=== PATIENT | male | born 1995 | race Caucasian/White ===

== ENCOUNTER 2018-03-29 10:36 | Emergency (ER) | payer OTHER ==
--- OUTSIDE RECORDS SUMMARY | 2018-03-29 10:38 | XMS REPORT ---
:1995 Author Organization [facility] Address [address] [place] [address] Care Team Providers Name Role Phone MARILUEMMY MONGE Unavailable Unavailable Problems This patient has no known problems. Allergies, Adverse Reactions, Alerts This patient has no known allergies or adverse reactions. Medications This patient has no known medications. Results Test Description Test Time Test Comments Text Results Atomic Results Result Comments T4, FREE 2017-12-10 11:47:00 Test Item Value Reference Range Comments FREE T4 (BEAKER) (test jlvj=742) 1.09 ng/dL 0.70-1.48 HEMOGLOBIN [id number] 10:04:00 Test Item Value Reference Range Comments HEMOGLOBIN A1C (BEAKER) (test zvqw=355) 6.2 % 4.3-6.1 CALCIUM, [id number] 07:52:00 Test Item Value Reference Range Comments CALCIUM IONIZED (BEAKER) (test vrne=972) 1.00 mmol/L 1.12-1.27 PH, BLOOD (BEAKER) (test pbih=7934) 7.35 [id number] 06:09:00 Test Item Value Reference Range Comments PHOSPHORUS (BEAKER) (test hjie=803) 3.4 mg/dL 2.3-4.7 [id number] 06:09:00 Test Item Value Reference Range Comments MAGNESIUM (BEAKER) (test kduu=524) 1.7 mg/dL 1.6-2.6 BASIC METABOLIC [id number] 06:09:00 Test Item Value Reference Range Comments SODIUM (BEAKER) (test 139 meq/L 136-145 urmy=703) POTASSIUM (BEAKER) (test 3.6 meq/L 3.5-5.1 tacj=130) CHLORIDE (BEAKER) (test 106 meq/L 98-107 yjqm=795) CO2 (BEAKER) (test 24 meq/L 22-29 buqw=460) BLOOD UREA NITROGEN 11 mg/dL 7-21 (BEAKER) (test hlus=031) CREATININE (BEAKER) (test 0.78 mg/dL 0.57-1.25 aryp=835) GLUCOSE RANDOM (BEAKER) 86 mg/dL 70-105 (test vliu=401) CALCIUM (BEAKER) (test 8.9 mg/dL 8.4-10.2 txci=773) EGFR (BEAKER) (test 127 mL/min/1.73 sq m ESTIMATED GFR IS NOT uzfp=5360) ACCURATE CREATININE CLEARANCE IN PREDICTING GLOMERULAR FILTRATION RATE. ESTIMATED GFR IS NOT APPLICABLE FOR DIALYSIS PATIENTS. LIPID [id number] 06:09:00 Test Item Value Reference Range Comments TRIGLYCERIDES (BEAKER) (test tebs=082) 89 mg/dL CHOLESTEROL (BEAKER) (test rgsw=786) 132 mg/dL HDL CHOLESTEROL (BEAKER) (test njcp=396) 36 mg/dL LDL CHOLESTEROL CALCULATED (BEAKER) (test 78 mg/dL gevk=785) Triglyceride Reference Range: Low Risk <150 Borderline 150- 199 High Risk 200-499 Very High Risk >=500Cholesterol Reference Range: Low Risk <200 Borderline 200-239 High Risk > 240HDL Cholesterol Reference Range: Low Risk >=60 High Risk <40LDL Cholesterol Reference Range: Optimal <100 Near Optimal 100-129 Borderline 130-159 High 160-189 Very High >=190TSH/FREE T4 IF [id number] 05:58:00 Test Item Value Reference Range Comments THYROID STIMULATING HORMONE (BEAKER) (test 10.61 uIU/mL 0.35-4.94 seor=962) [id number] 05:44:00 Test Item Value Reference Range Comments D-DIMER QUANTITATIVE (BEAKER) (test pwzf=263) < MG/L FEU <0.50 Intended Use: The D-Dimer Assay can be used to aid in the diagnosis of Deep Vein Thrombosis (DVT) and Pulmonary Embolism Disease (PED).In patients with low pre-test probability, various studies concerning STA Liatest D-dimer test have reported that with a cutoff value of 0.50 MG/L FEU, the Negative Predictive Value (NPV) regarding the exclusion of thrombosis is within 95-100% range.CBC W/ PLT COUNT & AUTO [id number] 04:54:00 Test Item Value Reference Range Comments WHITE BLOOD CELL COUNT (BEAKER) (test eupy=884) 8.5 K/ L 3.5-10.5 RED BLOOD CELL COUNT (BEAKER) (test kyrs=977) 5.30 M/ L 4.63-6.08 HEMOGLOBIN (BEAKER) (test vyxx=263) 16.2 GM/DL 13.7-17.5 HEMATOCRIT (BEAKER) (test wzfi=558) 49.2 % 40.1-51.0 MEAN CORPUSCULAR VOLUME (BEAKER) (test fdrr=079) 92.8 fL 79.0-92.2 MEAN CORPUSCULAR HEMOGLOBIN (BEAKER) (test 30.6 pg 25.7-32.2 shbc=076) MEAN CORPUSCULAR HEMOGLOBIN CONC (BEAKER) (test 32.9 GM/DL 32.3-36.5 krle=363) RED CELL DISTRIBUTION WIDTH (BEAKER) (test 13.2 % 11.6-14.4 mbin=114) PLATELET COUNT (BEAKER) (test jpzu=915) 205 K/CU MM 150-450 MEAN PLATELET VOLUME (BEAKER) (test ljqz=330) 13.1 fL 9.4-12.4 NUCLEATED RED BLOOD CELLS (BEAKER) (test 0 /100 WBC 0-0 rdrr=506) NEUTROPHILS RELATIVE PERCENT (BEAKER) (test 65 % pmnv=484) LYMPHOCYTES RELATIVE PERCENT (BEAKER) (test 27 % fxid=029) MONOCYTES RELATIVE PERCENT (BEAKER) (test 6 % nqki=505) EOSINOPHILS RELATIVE PERCENT (BEAKER) (test 2 % drbg=823) BASOPHILS RELATIVE PERCENT (BEAKER) (test 0 % hmhg=332) NEUTROPHILS ABSOLUTE COUNT (BEAKER) (test 5.52 K/ L 1.78-5.38 oghq=644) LYMPHOCYTES ABSOLUTE COUNT (BEAKER) (test 2.28 K/ L 1.32-3.57 xuax=513) MONOCYTES ABSOLUTE COUNT (BEAKER) (test 0.50 K/ L 0.30-0.82 syzc=493) EOSINOPHILS ABSOLUTE COUNT (BEAKER) (test 0.17 K/ L 0.04-0.54 etgw=472) BASOPHILS ABSOLUTE COUNT (BEAKER) (test 0.03 K/ L 0.01-0.08 muqj=972) IMMATURE GRANULOCYTES-RELATIVE PERCENT (BEAKER) 0 % 0-1 (test qhkf=0037) COMPREHENSIVE METABOLIC [id number] 18:11:00 Test Item Value Reference Range Comments TOTAL PROTEIN (BEAKER) 7.6 gm/dL 6.0-8.3 (test zvvp=513) ALBUMIN (BEAKER) (test 4.4 g/dL 3.5-5.0 iyyk=5828) ALKALINE PHOSPHATASE 110 U/L 40-150 (BEAKER) (test efop=962) BILIRUBIN TOTAL (BEAKER) 0.6 mg/dL 0.2-1.2 (test nxpl=114) SODIUM (BEAKER) (test 140 meq/L 136-145 ijdl=004) POTASSIUM (BEAKER) (test 4.5 meq/L 3.5-5.1 nkyq=664) CHLORIDE (BEAKER) (test 105 meq/L 98-107 xbtb=431) CO2 (BEAKER) (test 27 meq/L 22-29 aazc=722) BLOOD UREA NITROGEN 14 mg/dL 7-21 (BEAKER) (test fcme=697) CREATININE (BEAKER) (test 1.06 mg/dL 0.57-1.25 gytn=865) GLUCOSE RANDOM (BEAKER) 71 mg/dL 70-105 (test uctn=493) CALCIUM (BEAKER) (test 9.7 mg/dL 8.4-10.2 snqt=762) AST (SGOT) (BEAKER) (test 18 U/L 5-34 qhny=557) ALT (SGPT) (BEAKER) (test 17 U/L 6-55 tjrf=874) EGFR (BEAKER) (test 89 mL/min/1.73 sq m ESTIMATED GFR IS NOT ivww=5776) ACCURATE CREATININE CLEARANCE IN PREDICTING GLOMERULAR FILTRATION RATE. ESTIMATED GFR IS NOT APPLICABLE FOR DIALYSIS PATIENTS. [id number] 18:06:00 Test Item Value Reference Range Comments CORTISOL, TOTAL (BEAKER) (test jdzd=3195) 11.6 ug/dL 3.7-19.4 [id number] 17:48:00 Test Item Value Reference Range Comments PHOSPHORUS (BEAKER) (test ydfr=980) 2.8 mg/dL 2.3-4.7 [id number] 17:48:00 Test Item Value Reference Range Comments MAGNESIUM (BEAKER) (test yzbm=325) 2.1 mg/dL 1.6-2.6 CBC W/PLT COUNT & AUTO [id number] 17:10:00 Test Item Value Reference Range Comments WHITE BLOOD CELL COUNT (BEAKER) (test fofh=653) 9.0 K/ L 3.5-10.5 RED BLOOD CELL COUNT (BEAKER) (test kmru=690) 5.57 M/ L 4.63-6.08 HEMOGLOBIN (BEAKER) (test desf=799) 17.4 GM/DL 13.7-17.5 HEMATOCRIT (BEAKER) (test cvav=204) 53.2 % 40.1-51.0 MEAN CORPUSCULAR VOLUME (BEAKER) (test yhae=287) 95.5 fL 79.0-92.2 MEAN CORPUSCULAR HEMOGLOBIN (BEAKER) (test 31.2 pg 25.7-32.2 blvd=929) MEAN CORPUSCULAR HEMOGLOBIN CONC (BEAKER) (test 32.7 GM/DL 32.3-36.5 aqdf=194) RED CELL DISTRIBUTION WIDTH (BEAKER) (test 13.5 % 11.6-14.4 dver=253) PLATELET COUNT (BEAKER) (test qlwz=040) 220 K/CU MM 150-450 MEAN PLATELET VOLUME (BEAKER) (test axue=422) 13.0 fL 9.4-12.4 NUCLEATED RED BLOOD CELLS (BEAKER) (test 0 /100 WBC 0-0 aciq=224) NEUTROPHILS RELATIVE PERCENT (BEAKER) (test 76 % pnms=257) LYMPHOCYTES RELATIVE PERCENT (BEAKER) (test 16 % kwst=792) MONOCYTES RELATIVE PERCENT (BEAKER) (test 7 % mrki=049) EOSINOPHILS RELATIVE PERCENT (BEAKER) (test 1 % qtji=202) BASOPHILS RELATIVE PERCENT (BEAKER) (test 0 % zyhb=150) NEUTROPHILS ABSOLUTE COUNT (BEAKER) (test 6.81 K/ L 1.78-5.38 sucu=792) LYMPHOCYTES ABSOLUTE COUNT (BEAKER) (test 1.47 K/ L 1.32-3.57 vwde=780) MONOCYTES ABSOLUTE COUNT (BEAKER) (test 0.59 K/ L 0.30-0.82 muec=128) EOSINOPHILS ABSOLUTE COUNT (BEAKER) (test 0.10 K/ L 0.04-0.54 pbdl=824) BASOPHILS ABSOLUTE COUNT (BEAKER) (test 0.03 K/ L 0.01-0.08 bvhr=571) IMMATURE GRANULOCYTES-RELATIVE PERCENT (BEAKER) 0 % 0-1 (test oauu=1031)
--- OUTSIDE RECORDS SUMMARY | 2018-03-29 10:38 | XMS REPORT | Clinical Summary ---
:1995 Author Organization [facility] Address [address] [place] [address] Phone Care Team Providers Name Role Phone Unavailable Primary Care Provider Unavailable Allergies Active Allergy Reactions Severity Noted Date Comments Ibuprofen Swelling High 12/09/2017 Throat swells Current Medications Prescription Sig. Disp. Refills Start Date End Date Status metoprolol Take 0.5 60 tablet 2 10/12/2017 Active (LOPRESSOR) 25 MG tablets (12.5 tablet mg total) by mouth 2 (two) times daily. aspirin 81 MG EC Take 1 tablet 30 tablet 0 12/11/2017 12/11/2018 Active tablet (81 mg total) by mouth daily. pantoprazole Take 1 tablet 30 tablet 0 12/10/2017 Active (PROTONIX) 40 MG (40 mg total) tablet by mouth daily. traMADol (ULTRAM) Take 1 tablet 60 tablet 2 12/22/2017 Active 50 mg tablet (50 mg total) by mouth 2 (two) times daily as needed for Pain. Max Daily Amount: 100 mg zolpidem (AMBIEN) Take 10 mg by Active 10 mg tablet mouth every night as needed for Insomnia. aspirin 81 MG EC Take 81 mg by 12/09/2017 Discontinued tablet mouth daily. metoprolol Take 12.5 mg 06/14/2017 10/12/2017 Discontinued (LOPRESSOR) 25 MG by mouth 2 tablet (two) times daily . traMADol (ULTRAM) Take 50 mg by 12/22/2017 Discontinued 50 mg tablet mouth every 6 (six) hours as needed for Pain. ranitidine (ZANTAC) Take 75 mg by 12/10/2017 Discontinued 75 MG tablet mouth 2 (two) times daily. zolpidem (AMBIEN) Take 1 tablet 30 tablet 0 12/10/2017 01/09/2018 10 mg tablet (10 mg total) by mouth every night as needed for Insomnia for up to 30 days. Max Daily Amount: 10 mg traZODone (DESYREL) Take 1 tablet 30 tablet 0 02/16/2018 03/18/2018 50 MG tablet (50 mg total) by mouth nightly for 30 days. azithromycin Take 1 packet 1 g 0 02/27/2018 02/27/2018 (ZITHROMAX) 1 gram (1 g total) by powder mouth once for 1 dose. azithromycin Take 2 tablets 2 tablet 0 03/01/2018 03/01/2018 (ZITHROMAX) 500 MG (1,000 mg tablet total) by mouth once for 1 dose. Active Problems Problem Noted Date Hypertension 12/10/2017 Pacemaker 12/10/2017 Other insomnia 12/10/2017 Syncope 12/09/2017 Encounters Date Type Specialty Care Team Description 03/01/2018 Orders Only Family Medicine Celestina Crawford NP 02/27/2018 Orders Only Family Medicine Kaci Tatum MD 02/16/2018 Office Visit Family Kaci Aguirre, Depression with MD anxiety (Primary Dx) 01/12/2018 Office Visit Family Kaci Aguirre, Testing for genetic MD disease carrier status (Primary Dx) 12/22/2017 Office Visit Family Kaci Aguirre, Atypical chest pain MD (Primary Dx);Anxiety 12/09/2017 - Hospital Encounter Cardiology Kannan Briceño, Syncope, 12/10/2017 unspecified syncope Aman, art Brunner MD 12/09/2017 Orders Only General Internal Medicine 10/12/2017 Office Visit Family Kaci Aguirre, Hypoplastic left MD heart syndrome (Primary Dx);History of heart surgery 04/29/2017 Telephone Family Kaci Agurire Depression 04/29/2017 Telephone Family Kaci Aguirre, Heart Transplant Pre-evaluation after 03/28/2017 Immunizations Name Dates Previously Given Next Due Influenza Three-TIV PF 5+ YR 12/10/2017 Pneumococcal Polysaccharide (Pneumovax) 12/10/2017 Family History Medical History Relation Name Comments Hypertension Maternal Grandfather Relation Name Status Comments Maternal Grandfather Alive Social History Tobacco Use Types Packs/Day Years Used Date Never Smoker Smokeless Tobacco: Current User Alcohol Use Drinks/Week oz/Week Comments Yes Sex Assigned at Date Recorded Not on file Last Filed Vital Signs Vital Sign Reading Time Taken Blood Pressure 129/74 02/16/2018 2:16 PM CDT Pulse 93 02/16/2018 2:16 PM CDT Temperature 36.3 C (97.4 F) 02/16/2018 2:16 PM CDT Respiratory Rate 18 12/10/2017 3:00 PM 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 Comment: Comment Comment: The assay provides information intended to be used for carrier screening in adults of reproductive age, as an aid in screening, and as a confirmatory test for another medically established diagnosis in newborns and children. The test is not indicated for use in diagnostic testing, pre-implantation screening, or for any stand-alone diagnostic purposes without confirmation by another medically established diagnostic product or procedure. Specimen Performing Laboratory Blood [facility] Narrative Performed at:[address] [place] [address] Endocrinology [id number] Pipe Stem Aligner: Min Leary MD, Phone:[phone] RHYTHM STRIP - SCAN (12/27/2017 10:00 AM)Only the most recent of2 resultswithin the time period is included.ECHOCARDIOGRAM REPORT - SCAN (12/10/2017 1:50 PM) TSH/Free T4 If Indicated (12/10/2017 4:18 AM) Component Value Ref Range TSH 10.61 (H) 0.35 - 4.94 uIU/mL Specimen Performing Laboratory Blood - Arm, Left [facility] [address] [address] Calcium, Ionized (12/10/2017 4:18 AM) Component Value Ref Range Calcium, Ion 1.00 (L) 1.12 - 1.27 mmol/L pH, Blood 7.35 Specimen Performing Laboratory Blood - Arm, [address] [address] CBC with platelet count + automated diff (12/10/2017 4:18 AM)Only the most recent of2 resultswithin the time period is included. Component Value Ref Range WBC 8.5 3.5 - 10.5 K/L RBC 5.30 4.63 - 6.08 M/L Hemoglobin 16.2 13.7 - 17.5 GM/DL Hematocrit 49.2 40.1 - 51.0 % MCV 92.8 (H) 79.0 - 92.2 fL MCH 30.6 25.7 - 32.2 pg MCHC 32.9 32.3 - 36.5 GM/DL RDW 13.2 11.6 - 14.4 % Platelets 205 150 - 450 K/CU MM MPV 13.1 (H) 9.4 - 12.4 fL nRBC 0 0 - 0 /100 WBC % Neutros 65 % % Lymphs 27 % % Monos 6 % % Eos 2 % % Baso 0 % # Neutros 5.52 (H) 1.78 - 5.38 K/L # Lymphs 2.28 1.32 - 3.57 K/L # Monos 0.50 0.30 - 0.82 K/L # Eos 0.17 0.04 - 0.54 K/L # Baso 0.03 0.01 - 0.08 K/L Immature Granulocytes-Relative 0 0 - 1 % Specimen Performing Laboratory Blood - Arm, [address] [address] D-dimer (12/10/2017 4:18 AM) Component Value Ref Range D-Dimer, Quant <0.27 <0.50 MG/L FEU Specimen Performing Laboratory Blood - Arm, [address] [address] Narrative Intended Use: The D-Dimer Assay can be used to aid in the diagnosis of Deep Vein Thrombosis (DVT) and Pulmonary Embolism Disease (PED). In patients with low pre-test probability, various studies concerning STA Liatest D-dimer test have reported that with a cutoff value of 0.50 MG/L FEU, the Negative Predictive Value (NPV) regarding the exclusion of thrombosis is within 95-100% range. CBC with platelet count + automated diff (12/10/2017 4:18 AM)Only the most recent of2 resultswithin the time period is included. Specimen Performing Laboratory Blood Narrative The following orders were created for panel order CBC with platelet count + automated diff. Procedure Abnormality Status --------- ------ CBC with platelet count ...[[id number]]AbnormalFinal result Please view results for these tests on the individual orders. T4, free (12/10/2017 4:18 AM) Component Value Ref Range Free T4 1.09 0.70 - 1.48 ng/dL Specimen Performing Laboratory Blood - Arm, [address] [address] Phosphorus (12/10/2017 4:18 AM)Only the most recent of2 resultswithin the time period is included. Component Value Ref Range Phosphorus 3.4 2.3 - 4.7 mg/dL Specimen Performing Laboratory Blood - Arm, [address] [address] Magnesium (12/10/2017 4:18 AM)Only the most recent of2 resultswithin the time period is included. Component Value Ref Range Magnesium 1.7 1.6 - 2.6 mg/dL Specimen Performing Laboratory Blood - Arm, [address] [address] Hemoglobin A1c (12/10/2017 4:18 AM) Component Value Ref Range Hemoglobin A1C 6.2 (H) 4.3 - 6.1 % Specimen Performing Laboratory Blood - Arm, [address] [address] Lipid panel (12/10/2017 4:18 AM) Component Value Ref Range Triglycerides 89 mg/dL Cholesterol 132 mg/dL HDL 36 mg/dL LDL Calculated 78 mg/dL Specimen Performing Laboratory Blood - Arm, [address] [address] Narrative Triglyceride Reference Range: Low Risk <150 [id number] High Risk 200-499 Very High Risk>=500 Cholesterol Reference Range: Low Risk <200 [id number] High Risk>240 HDL Cholesterol Reference Range: Low Risk >=60 High Risk <40 LDL Cholesterol Reference Range: Optimal<100 Near [id number] [id number] Mdof601-706 Very High >=190 Basic Metabolic Panel (12/10/2017 4:18 AM) Component Value Ref Range Sodium 139 136 - 145 meq/L Potassium 3.6 3.5 - 5.1 meq/L Chloride 106 98 - 107 meq/L CO2 24 22 - 29 meq/L BUN 11 7 - 21 mg/dL Creatinine 0.78 0.57 - 1.25 mg/dL Glucose 86 70 - 105 mg/dL Calcium 8.9 8.4 - 10.2 mg/dL EGFR 127Comment: ESTIMATED GFR IS NOT ACCURATE mL/min/1.73 sq m CREATININE CLEARANCE IN PREDICTING GLOMERULAR FILTRATION RATE. ESTIMATED GFR IS NOT APPLICABLE FOR DIALYSIS PATIENTS. Specimen Performing Laboratory Blood - Arm, [place] [address] 2D Echo W/Doppler(CW/PW/Color) (12/09/2017 5:01 PM) Component Value Ref Range Ejection Fraction Specimen Performing Laboratory 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 Previous Study No prior exam available for comparison. Signature Findings Left Ventricle The LV endocardium is adequately visualized. Double inlet left ventricle with ventricular inversion (left sided RV, right sided LV) Normal wall thickness. The left ventricle is moderately dilated (6.4 cm LVEDD) Normal systolic function, shortening fraction ~31%, All segments contract normally. The visual ejection fraction was estimated 55-60% %. Normal diastolic function. Left AtriumLA size is normal . Right VentricleThe RV appears hypoplastic and is left sided Right Atrium RA cavity size appears normal . A circular structure posterior to the RA is likely an extracardiac conduit Fontan - no fenestration is visualized by color Doppler. Atrial SeptumThe atrial communication appears widely patent (absence of septum consistent with septectomy from [place] procedure). Aortic Valve Mild aortic regurgitation. Normal AoV structure. Suspect that this may be a zulema-aorta recreated from a pulmonary valve annulus if Rusty procedure performed. Mitral Valve Normal MV structure. Mild mitral regurgitation. Tricuspid ValveTV structure is normal. Mild tricuspid regurgitation. Incomplete jet to estimate systemic pressure. Pulmonic Valve PV is not well visualized. Mild pulmonary insufficiency. There is likely a second outflow consistent with a Jrtdi-Asmy-Gtozjtv procedure where 2 semilunar outflows have systemic anastomosis AortaAortic root size (SInus of Valsalva diameter) is normal . PericardiumNo pericardial effusion is visualized. IVC/SVC/PA/PV/PleuralThe right upper pulmonary vein (RUPV) is normal . The estimated RA pressure by IVC dynamics 11-15 mmHg . 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, [facility]), s/p PPM for SSS (2015, [facility]) Height: 68 inches Weight: 63.5 kg (140 lbs) BSA: 1.76 m^2 BMI: 21.29 kg/m^2 HR: 66 bpm BP: 132/65 mmHg Summary Double inlet LV with VSD Ventricular inversion with left sided hypoplastic RV and right sided moderately dilated LV with normal systolic function (LVEF 55-60%) and normal diastology Suspect DKS (Rusty-type) operation and two semilunar valve, systemic outflows, both with mild insufficiency - though the second outflow is not well seen Normal sized aortic (vs zulema-aortic) root Mild left and right AV valve insufficiency Normal biatrial size with widely patent intra-atrial communication 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 Previous Study No prior exam available for comparison. Signature Findings Left Ventricle The LV endocardium is adequately visualized. Double inlet left ventricle with ventricular inversion (left sided RV, right sided LV) Normal wall thickness. The left ventricle is moderately dilated (6.4 cm LVEDD) Normal systolic function, shortening fraction ~31%, All segments contract normally. The visual ejection fraction was estimated 55-60% %. Normal diastolic function. Left Atrium LA size is normal . Right Ventricle The RV appears hypoplastic and is left sided Right Atrium RA cavity size appears normal . A circular structure posterior to the RA is likely an extracardiac conduit Fontan - no fenestration is visualized by color Doppler. Atrial Septum The atrial communication appears widely patent (absence of septum consistent with septectomy from [place] procedure). Aortic Valve Mild aortic regurgitation. Normal AoV structure. Suspect that this may be a zulema-aorta recreated from a pulmonary valve annulus if [place] procedure performed. Mitral Valve Normal MV structure. Mild mitral regurgitation. Tricuspid Valve TV structure is normal. Mild tricuspid regurgitation. Incomplete jet to estimate systemic pressure. Pulmonic Valve PV is not well visualized. Mild pulmonary insufficiency. There is likely a second outflow consistent with a Ypzkp-Tfcy-Pcpjmel procedure where 2 semilunar outflows have systemic anastomosis Aorta Aortic root size (SInus of Valsalva diameter) is normal . Pericardium No pericardial effusion is visualized. IVC/SVC/PA/PV/Pleural The right upper pulmonary vein (RUPV) is normal . The estimated RA pressure by IVC dynamics 11-15 mmHg . 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 Peak: LVOT Peak Velocity: 0.93 m/s Peak Gradient: 3.44 mmHg Mean Velocity: 0.63 m/s Mean Gradient: 1.81 mmHg LVOT VTI: 19.75 cm Tricuspid Valve TR Velocity: 3.38 m/s TR Gradient: 45.76 mmHg ECG 12 lead (12/09/2017 4:51 PM) Specimen Performing Laboratory [facility] Ventricular Rate 69 BPM Atrial Rate 69 BPM P-R Interval 134 ms QRS Duration 94 ms Q-T Interval 432 ms QTC Calculation(Bazett) 462 ms P Prewitt 95 degrees R Prewitt 116 degrees T Prewitt 106 degrees Electronic atrial pacemaker Right axis deviation Possible Right ventricular hypertrophy Nonspecific ST abnormality T wave inversion in I and aVL Abnormal ECG No previous ECGs available Confirmed by MD ED, RONALD ([id number]) on 12/12/2017 6:27:19 AM Procedure Note Interface, External Ris In - 12/12/2017 6:27 AM 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 Ventricular Rate 69 BPM Atrial Rate 69 BPM P-R Interval 134 ms QRS Duration 94 ms Q-T Interval 432 ms QTC Calculation(Bazett) 462 ms P P[place]itt 95 degrees R Prewitt 116 degrees T P[place]itt 106 degrees Electronic atrial pacemaker Right axis deviation Possible Right ventricular hypertrophy Nonspecific ST abnormality T wave inversion in I and aVL Abnormal ECG No previous ECGs available Confirmed by MD ED, RONALD ([id number]) on 12/12/2017 6:27:19 AM Cortisol (12/09/2017 4:40 PM) Component Value Ref Range Cortisol, Total 11.6 3.7 - 19.4 ug/dL Specimen Performing Laboratory Blood [address] [address] Comprehensive metabolic panel (12/09/2017 4:40 PM) Component Value Ref Range Protein, Total 7.6 6.0 - 8.3 gm/dL Albumin 4.4 3.5 - 5.0 g/dL Alkaline Phosphatase 110 40 - 150 U/L Total Bilirubin 0.6 0.2 - 1.2 mg/dL Sodium 140 136 - 145 meq/L Potassium 4.5 3.5 - 5.1 meq/L Chloride 105 98 - 107 meq/L CO2 27 22 - 29 meq/L BUN 14 7 - 21 mg/dL Creatinine 1.06 0.57 - 1.25 mg/dL Glucose 71 70 - 105 mg/dL Calcium 9.7 8.4 - 10.2 mg/dL AST 18 5 - 34 U/L ALT 17 6 - 55 U/L EGFR 89Comment: ESTIMATED GFR IS NOT ACCURATE mL/min/1.73 sq m CREATININE CLEARANCE IN PREDICTING GLOMERULAR FILTRATION RATE. ESTIMATED GFR IS NOT APPLICABLE FOR DIALYSIS PATIENTS. Specimen Performing Laboratory Blood [address] [address] after 03/28/2017
[2018-03-29 11:32] LABS: Protime INR 1.18
[2018-03-29 11:38] LABS: Absolute Lymphocytes (CBC) 1.2 K/uL (0.7-4.9); Absolute Monocytes 0.6 K/uL (0.1-1.3); Absolute Neutrophil 5.1 K/uL (1.8-8.0); BUN Blood Urea Nitrogen 14 mg/dL (6-20); Basophils % 0.5 % (0-1.3); Bicarbonate 29 mEq/L (21-31); Eosinophils % 1.9 % (0-4.4); Glucose Level 76 mg/dL (65-120); Hematocrit 50.8 % (39.6-49.0); Lymphocytes % 16.7 % (15.3-44.8); MCH 31.3 pg (27.0-35.0); MCV 96.1 fL (80-100); MPV 12.1 fL (7.6-11.3); Monocytes % 8.8 % (3.3-12.3); Potassium 4.5 mEq/L (3.6-5.0); RBC Red Blood Cell Count 5.29 M/uL (4.33-5.43); Sodium Level 139 mEq/L (135-145)
--- NOTE | 2018-03-29 11:40 | RAD REPORT ---
EXAM DESCRIPTION: CT - Head Brain Wo Cont - 03/29/2018 11:30 am CLINICAL HISTORY: Left eye visual loss, visual changes to the right eye, history of seizures COMPARISON: None. TECHNIQUE: Axial 5 mm thick images of the head were obtained without IV contrast. All CT scans are performed using dose optimization technique as appropriate and may include automated exposure control or mA/KV adjustment according to patient size. FINDINGS: No intracranial hemorrhage, mass, edema or shift of mid-line structures. No acute infarcti on changes seen. No abnormal extra-axial fluid collections. Ventricles are normal. Mastoid air cells and visualized portions of the paranasal sinuses are clear. No acute bony findings. IMPRESSION: Negative non-contrast CT head examination.
[2018-03-29 12:01] LABS: Blood Morphology Comment NOT SEEN (NOT SEEN); Platelet Estimate ADEQ; Platelets, Giant FEW; Urine White Blood Cell Casts OK
--- NOTE | 2018-03-29 15:19 | RAD REPORT ---
EXAM DESCRIPTION: CT - Neck Angio - 03/29/2018 2:47 pm CLINICAL HISTORY: Blurred vision, possible dissection COMPARISON: CT head same date TECHNIQUE: During dynamic enhancement using nonionic IV contrast, axial 2 millimeter thick images we re obtained. Sagittal and coronal reformatted images were generated and reviewed. FINDINGS: Bilateral internal carotid artery's from origin to determine a yadav show no dissection or focal narrowing. The mid and distal portions of the each common carotid artery also believed to be no rmal. Right vertebral artery is dominant. Left vertebral artery is very small in diameter along its entire course. This is believed to be a normal variant and not a left vertebral artery dissection. The exam has significant motion degradation limitation. 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 Subclavian, left common carotid and innominate artery origins do not appear to be stenotic. T he aortic arch does appear to be dilated. Aortic arch cannot be further assessed. Soft tissues of the base of the neck are limited by substantial motion. IMPRESSION: No carotid or vertebral artery dissection identifiable. The left vertebral artery is morales y small along its entire course believed to be normal variant rather than vertebral dissection. 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 Aortic arch is dilate d. Coarctation cannot be excluded. Soft tissue fullness near the aortic arch is also noted but incomp letely assessed due to motion and incomplete visualization.
--- NOTE | 2018-03-29 15:26 | RAD REPORT ---
EXAM DESCRIPTION: CT - Head angio - 03/29/2018 2:45 pm CLINICAL HISTORY: Acute onset visual changes, possible dissection or acute vascular abnormality COMPARISON: Noncontrast CT head same date TECHNIQUE: During dynamic enhancement using nonionic IV contrast, axial 1 millimeter thick images we re obtained through the skullbase and intracranial region. Sagittal and coronal reformatted images we re generated and reviewed. FINDINGS: Near the skullbase the right vertebral artery is dominant. Left vertebral artery is very s mall. This is believed to be normal variant and not left vertebral dissection. Distal right vertebral and basilar artery show no suspicious findings. No vascular abnormality identifiable at the origin of the ophthalmic arteries. The arteries themselve s are not very often visualized on a CT angio due to the small size. There are no calcifications maurice nal narrowing or other findings in the internal carotid artery snare ophthalmic artery origins. From the skullbase through the termination point the internal carotid arteries show no dissection, st enosis or acute finding. No aneurysm or vascular malformation. Patient has a normal variant very smal l or absent A1 segment of the anterior cerebral artery on the right. Patient has a large right rn plastic surgery ior communicating artery with a small or absent right P1 segment of the posterior cerebral artery. Anterior and middle cerebral artery distribution show no significant finding. No gross abnormality of the posterior cerebral artery distributions. No aneurysm or vascular malformation. Normal opacification of the venous sinuses noted. IMPRESSION: No aneurysm or vascular malformation identified. No abnormality seen in the internal car otid arteries at the ophthalmic artery origins. Elsewhere the patient has normal variant vascular anatomy but no suspicious vascular finding.
--- NOTE | 2018-03-29 16:14 | ER ---
Nurse's Notes [facility] Name: Chace Silva Age: 22 yrs Sex: Male : 1995 Arrival Date: 03/29/2018 Time: 10:38 Bed 14 Private MD: Diagnosis: Acute angle-closure glaucoma, bilateral Presentation: 03/29 10:43 Presenting complaint: Patient states: I cant see out of my L eye at all, and out of my ch R eye i am seeing white lights/flashes and blurred vision. It started yesterday at 1700, comes and goes. I have lost my vision before, it comes and goes for about 30 seconds at a time. it has only happened once or twice. Transition of care: patient was not received from another setting of care. Onset of symptoms was March 28, 2018 at 17:00. Initial Sepsis Screen: Does the patient meet any 2 criteria? No. Patient's initial sepsis screen is negative. Does the patient have a suspected source of infection? No. Patient's initial sepsis screen is negative. 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 10:43 Method Of Arrival: Ambulatory 10:43 Acuity: NIKOLE 2 ch Triage Assessment: 10:48 General: Appears in no apparent distress. uncomfortable, Behavior is calm, cooperative, ch appropriate for age. Pain: Complains of pain in forehead, left ear, left cheek, left eye and left catholic Pain currently is 6 out of 10 on a pain scale. Pain began this morning. 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 - Social history:: Smoking status: Patient/guardian denies using tobacco. Screenin:00 Abuse screen: Denies threats or abuse. Denies injuries from another. Nutritional hb screening: No deficits noted. Tuberculosis screening: No symptoms or risk factors identified. Fall Risk None identified. Assessment: 10:52 Reassessment: Pt unable to complete visual acuity assessment, says he usually wears hb glasses and is unable to see any lines without them. Dr. Maguire notified. 10:55 General: Appears in no apparent distress. Behavior is calm, cooperative. Pain: Denies hb pain. Neuro: Level of Consciousness is awake, alert, obeys commands, Oriented to person, place, time, situation. Cardiovascular: Capillary refill < 3 seconds Patient's skin is warm and dry. Respiratory: Airway is patent Trachea midline Respiratory effort is even, unlabored, Respiratory pattern is regular, symmetrical, Breath sounds are clear bilaterally. GI: No signs and/or symptoms were reported involving the gastrointestinal system. : No signs and/or symptoms were reported regarding the genitourinary system. EENT: Reports blurred vision bilateral eyes. Derm: No signs and/or symptoms reported regarding the dermatologic system. Skin is intact, is healthy with good turgor, Skin is pink, warm \T\ dry. Musculoskeletal: No signs and/or symptoms reported regarding the musculoskeletal system. 11:45 Reassessment: Patient appears in no apparent distress at this time. No changes from hb previously documented assessment. Patient and/or family updated on plan of care and expected duration. Pain level reassessed. Patient is alert, oriented x 3, equal unlabored respirations, skin warm/dry/pink. 12:45 Reassessment: Patient appears in no apparent distress at this time. No changes from hb previously documented assessment. Patient and/or family updated on plan of care and expected duration. Pain level reassessed. Patient is alert, oriented x 3, equal unlabored respirations, skin warm/dry/pink. 13:30 Reassessment: Patient appears in no apparent distress at this time. No changes from hb previously documented assessment. Patient and/or family updated on plan of care and expected duration. Pain level reassessed. Patient is alert, oriented x 3, equal unlabored respirations, skin warm/dry/pink. 14:30 Reassessment: Patient appears in no apparent distress at this time. No changes from hb previously documented assessment. Patient and/or family updated on plan of care and expected duration. Pain level reassessed. Patient is alert, oriented x 3, equal unlabored respirations, skin warm/dry/pink. 15:20 Reassessment: Patient appears in no apparent distress at this time. No changes from hb previously documented assessment. Patient and/or family updated on plan of care and expected duration. Pain level reassessed. Patient is alert, oriented x 3, equal unlabored respirations, skin warm/dry/pink. 16:00 Reassessment: Patient appears in no apparent distress at this time. No changes from hb previously documented assessment. Patient and/or family updated on plan of care and expected duration. Pain level reassessed. Patient is alert, oriented x 3, equal unlabored respirations, skin warm/dry/pink. 16:12 Reassessment: Admission ordered, Dr. Schroeder at bedside. Vital Signs: 10:48 BP 107 / 69; Pulse 61; Resp 14; Temp 97.9; Pulse Ox 91% on R/A; Weight 62.14 kg; Height 5 ft. 8 in. (172.72 cm); Pain 6/10; 11:45 BP 110 / 68; Pulse 60; Resp 15; Pulse Ox 100% on R/A; hb 12:45 BP 108 / 66; Pulse 62; Resp 16; Pulse Ox 100% on R/A; hb 13:30 BP 110 / 68; Pulse 60; Resp 15; Pulse Ox 100% on R/A; hb 15:19 BP 116 / 79; Pulse 65; Resp 15; Pulse Ox 100% on R/A; Pain 5/10; hb 16:12 BP 97 / 67; Pulse 63; Resp 15; Pulse Ox 97% on R/A; hb 10:48 Body Mass Index 20.83 (62.14 kg, 172.72 cm) ED Course: 10:38 Patient arrived in ED. sb2 10:45 Triage completed. ch 10:48 Arm band placed on left wrist. Patient placed in an exam room, on a stretcher. ch 10:52 Ariadna Sullivan, DEEPIKA is Primary Nurse. hb 10:54 Nba Maguire MD is Attending Physician. kdr 11:01 Patient has correct armband on for positive identification. Placed in gown. Bed in low hb position. Call light in reach. Side rails up X 1. 11:19 Initial lab(s) drawn, by me, sent to lab. Inserted saline lock: 20 gauge in left 3 antecubital area, using aseptic technique. Blood collected. 11:30 CT Head Brain wo Cont In Process Unspecified. EDMS 14:45 Head angio In Process Unspecified. EDMS 14:48 Neck Angio In Process Unspecified. EDMS 16:08 Kailey Schroeder MD is Hospitalizing Provider. kdr 16:43 Thi Pate MD is Referral Physician. kdr 16:44 Kailey Schroeder MD radiologic technologist. 3 16:53 No provider procedures requiring assistance completed. IV discontinued, intact, hb bleeding controlled, No redness/swelling at site. Pressure dressing applied. Administered Medications: No medications were administered Outcome: 16:13 Decision to Hospitalize by Provider. kdr 16:44 Discharge ordered by MD. kdr 16:53 Discharged to home ambulatory, with family. hb 16:53 Condition: stable 16:53 Discharge instructions given to patient, Instructed on discharge instructions, follow up and referral plans. medication usage, Demonstrated understanding of instructions, follow-up care, medications. 16:54 Patient left the ED. hb Signatures: Dispatcher [employer] EDPR Mercy Boogie, RN RN Nba Maguire MD MD [facility] Ariadna Sullivan RN RN [facility] Kailey Schroeder MD MD 3 Susan Khan sb2 Corrections: (The following items were deleted from the chart) 15:20 10:55 EENT: Reports blurred vision bilateral eyes hb hb
--- NOTE | 2018-03-29 16:14 | EDPHYS ---
Physician Documentation [facility] Name: Chace Silva Age: 22 yrs Sex: Male : 1995 Arrival Date: 03/29/2018 Time: 10:38 Bed 14 Private MD: ED Physician Nba Maguire HPI: 03/29 18:19 This 22 yrs old Male presents to ER via Ambulatory with complaints of LOSS OF kdr EYESIGHT. 18:19 The patient is experiencing blurred vision, decreased vision, double vision, to both kdr eyes. Onset: The symptoms/episode began/occurred gradually, 2 day(s) ago. Duration: the symptoms are continuous. Aggravated by nothing. Alleviated by nothing. Associated signs and symptoms: Pertinent positives: headache, Pertinent negatives: chills, dizziness, ear ache, fever, runny nose. Severity of symptoms: At their worst the symptoms were mild in the emergency department the symptoms are unchanged. The patient has experienced similar episodes in the past, Intermittently but not as bad or persistent. The patient has not recently seen a physician. 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 - Social history:: Smoking status: Patient/guardian denies using tobacco. ROS: 18:19 Constitutional: Negative for fever, chills, and weight loss, ENT: Negative for injury, kdr pain, and discharge, Neck: Negative for injury, pain, and swelling, Cardiovascular: Negative for chest pain, palpitations, and edema, Respiratory: Negative for shortness of breath, cough, wheezing, and pleuritic chest pain, Abdomen/GI: Negative for abdominal pain, nausea, vomiting, diarrhea, and constipation, Back: Negative for injury and pain, : Negative for injury, bleeding, discharge, and swelling, MS/Extremity: Negative for injury and deformity, Skin: Negative for injury, rash, and discoloration, Neuro: Negative for headache, weakness, numbness, tingling, and seizure activity. Psych: Negative for depression, anxiety, suicide ideation, homicidal ideation, and hallucinations, Allergy/Immunology: Negative for hives, rash, and allergies, Endocrine: Negative for neck swelling, polydipsia, polyuria, polyphagia, and marked weight changes, Hematologic/Lymphatic: Negative for swollen nodes, abnormal bleeding, and unusual bruising. Exam: 18:19 Visual Acuity: I have reviewed the nursing documentation. kdr 18:19 Constitutional: This is a well developed, well nourished patient who is awake, alert, and in no acute distress. Head/Face: Normocephalic, atraumatic. ENT: Nares patent. No nasal discharge, no septal abnormalities noted. Tympanic membranes are normal and external auditory canals are clear. Oropharynx with no redness, swelling, or masses, exudates, or evidence of obstruction, uvula midline. Mucous membranes moist. Neck: Trachea midline, no thyromegaly or masses palpated, and no cervical lymphadenopathy. Supple, full range of motion without nuchal rigidity, or vertebral point tenderness. No Meningismus. Chest/axilla: Normal chest wall appearance and motion. Nontender with no deformity. No lesions are appreciated. Cardiovascular: Regular rate and rhythm with a normal S1 and S2. No gallops, murmurs, or rubs. Normal PMI, no JVD. No pulse deficits. Respiratory: Lungs have equal breath sounds bilaterally, clear to auscultation and percussion. No rales, rhonchi or wheezes noted. No increased work of breathing, no retractions or nasal flaring. 18:19 Eyes: Pupils: equal, right pupil is approximately 4 mm(s), Extraocular movements: intact throughout, Conjunctiva: no acute changes, Corneas: are normal, Sclera: no appreciated abnormality, Poorly reactive and unable to accommodate with the right eye. CT head/neck all negative. Unable to get MRI due to pacemaker. Vital Signs: 10:48 BP 107 / 69; Pulse 61; Resp 14; Temp 97.9; Pulse Ox 91% on R/A; Weight 62.14 kg; Height ch 5 ft. 8 in. (172.72 cm); Pain 6/10; 11:45 BP 110 / 68; Pulse 60; Resp 15; Pulse Ox 100% on R/A; hb 12:45 BP 108 / 66; Pulse 62; Resp 16; Pulse Ox 100% on R/A; hb 13:30 BP 110 / 68; Pulse 60; Resp 15; Pulse Ox 100% on R/A; hb 15:19 BP 116 / 79; Pulse 65; Resp 15; Pulse Ox 100% on R/A; Pain 5/10; hb 16:12 BP 97 / 67; Pulse 63; Resp 15; Pulse Ox 97% on R/A; hb 10:48 Body Mass Index 20.83 (62.14 kg, 172.72 cm) ch MDM: 16:13 Patient medically screened. kdr 18:19 Data reviewed: vital signs, nurses notes, lab test result(s), radiologic studies. ED kdr course: Dr. Schroeder evaluated the patient and discussed with the patient's PCP. They felt like this was more likely an acute glaucoma and felt that discharge to Dr. Pate was more appropriate. 03/29 11:07 Order name: CBC with Diff; Complete Time: 12:30 kdr 03/29 11:07 Order name: Chem 7; Complete Time: 12:30 kdr 03/29 11:07 Order name: PT-INR; Complete Time: 12:30 kdr 03/29 11:50 Order name: CBC Smear Scan; Complete Time: 12:30 EDMS 03/29 14:04 Order name: ESR; Complete Time: 15:47 kdr 03/29 14:04 Order name: TSH kdr 03/29 11:07 Order name: CT Head Brain wo Cont; Complete Time: 12:30 kdr 03/29 14:10 Order name: Head angio; Complete Time: 15:47 EDMS 03/29 14:10 Order name: Neck Angio; Complete Time: 15:47 EDMS Administered Medications: No medications were administered Disposition: 03/29/18 16:44 Discharged to Direct to Physicians Office. Impression: Acute angle-closure glaucoma, bilateral. - Condition is Fair. - Medication Reconciliation Form, Thank You Letter form. - Work release form (03/29/18 16:55). hb - Follow up: Thi Pate MD; When: Upon discharge from the Emergency Department; Reason: If symptoms return, Further diagnostic work-up, Recheck today's complaints, Continuance of care, Re-evaluation by your physician. - Problem is new. - Symptoms are unchanged. - Notes: Go directly to Dr. Pate's office Signatures: Dispatcher [employer] EDWI Mercy Boogie, RN RN Nba Maguire MD MD kdr Ariadna Sullivan, RN RN Kailey Schroeder MD MD rp3 Corrections: (The following items were deleted from the chart) 15:56 12:52 Brain Wo Cont+MRI.RAD.BRZ ordered. [facility] EDWI 16:43 16:13 Hospitalization Ordered by Kailey Schroeder MD for Observation. Preliminary kdr diagnosis is Visual disturbances; Headache. Bed requested for Telemetry/MedSurg (observation). Status is Observation. Condition is Fair. Problem is new. Symptoms are unchanged. UTI on Admission? No. kdr 16:45 16:44 03/29/2018 16:44 Discharged to Home. Impression: Visual disturbances. Condition rp3 is Stable. Forms are Medication Reconciliation Form, Thank You Letter, Antibiotic Education, Prescription Opioid Use. Follow up: Thi Pate; When: Upon discharge from the Emergency Department; Reason: If symptoms return, Further diagnostic work-up, Recheck today's complaints, Continuance of care, Re-evaluation by your physician. Problem is new. Symptoms have improved. kdr 16:54 16:45 03/29/2018 16:44 Discharged to Direct to Physicians Office. Impression: Acute hb angle-closure glaucoma, bilateral. Condition is Fair. Forms are Medication Reconciliation Form, Thank You Letter. Follow up: Thi Pate; When: Upon discharge from the Emergency Department; Reason: If symptoms return, Further diagnostic work-up, Recheck today's complaints, Continuance of care, Re-evaluation by your physician. Problem is new. Symptoms are unchanged. rp3
== END 2018-03-29 16:54 | disposition home or self-care (01) ==
LOC: ER 10:36
DX: H40.213 Acute angle-closure glaucoma, bilateral (principal); I10 Essential (primary) hypertension; G40.89 Other seizures; Q24.9 Congenital malformation of heart, unspecified; Z79.82 Long term (current) use of aspirin; Z95.0 Presence of cardiac pacemaker; Z95.818 Presence of other cardiac implants and grafts
CPT/HCPCS: 36415; 70450; 70496; 70498; 80048; 84443; 85025; 85610; 85652; 99284; Q9967

== ENCOUNTER 2018-05-04 20:54 | Emergency (ER) | payer OTHER ==
--- OUTSIDE RECORDS SUMMARY | 2018-05-04 20:56 | XMS REPORT ---
:1995 [facility] Address [address] [place] [address] Care Team Providers Name Role Phone MARILUEMMY [...] Reference Range Comments FREE T4 (BEAKER) (test evsy=280) 1.09 ng/dL 0.70-1.48 HEMOGLOBIN [id number] 10:04:00 Test Item Value Reference Range Comments HEMOGLOBIN A1C (BEAKER) (test qahg=782) 6.2 % 4.3-6.1 CALCIUM, [id number] 07:52:00 Test Item Value Reference Range Comments CALCIUM IONIZED (BEAKER) (test uqmv=063) 1.00 mmol/L 1.12-1.27 PH, BLOOD (BEAKER) (test psum=5285) 7.35 [id number] 06:09:00 Test Item Value Reference Range Comments PHOSPHORUS (BEAKER) (test wwpn=429) 3.4 mg/dL 2.3-4.7 [id number] 06:09:00 Test Item Value Reference Range Comments MAGNESIUM (BEAKER) (test ofup=772) 1.7 mg/dL 1.6-2.6 BASIC METABOLIC [id number] 06:09:00 Test Item Value Reference Range Comments SODIUM (BEAKER) (test 139 meq/L 136-145 cbfd=648) POTASSIUM (BEAKER) (test 3.6 meq/L 3.5-5.1 taea=528) CHLORIDE (BEAKER) (test 106 meq/L 98-107 ijpv=758) CO2 (BEAKER) (test 24 meq/L 22-29 bjtf=356) BLOOD UREA NITROGEN 11 mg/dL 7-21 (BEAKER) (test odvi=706) CREATININE (BEAKER) (test 0.78 mg/dL 0.57-1.25 qjvm=711) GLUCOSE RANDOM (BEAKER) 86 mg/dL 70-105 (test cspj=604) CALCIUM (BEAKER) (test 8.9 mg/dL 8.4-10.2 lqbn=180) EGFR (BEAKER) (test 127 mL/min/1.73 sq m ESTIMATED GFR IS NOT rtib=9941) ACCURATE CREATININE CLEARANCE IN PREDICTING GLOMERULAR FILTRATION RATE. ESTIMATED GFR IS NOT APPLICABLE FOR DIALYSIS PATIENTS. LIPID [id number] 06:09:00 Test Item Value Reference Range Comments TRIGLYCERIDES (BEAKER) (test vkgu=586) 89 mg/dL CHOLESTEROL (BEAKER) (test yrre=874) 132 mg/dL HDL CHOLESTEROL (BEAKER) (test hisj=100) 36 mg/dL LDL CHOLESTEROL CALCULATED (BEAKER) (test 78 mg/dL qsjs=597) Triglyceride Reference Range: Low Risk <150 Borderline 150- 199 High Risk 200-499 Very High Risk >=500Cholesterol Reference Range: Low Risk <200 Borderline 200-239 High Risk > 240HDL Cholesterol Reference Range: Low Risk >=60 High Risk <40LDL Cholesterol Reference Range: Optimal <100 Near Optimal 100-129 Borderline 130-159 High 160-189 Very High >=190TSH/FREE T4 IF [id number] 05:58:00 Test Item Value Reference Range Comments THYROID STIMULATING HORMONE (BEAKER) (test 10.61 uIU/mL 0.35-4.94 minm=789) [id number] 05:44:00 Test Item Value Reference Range Comments D-DIMER QUANTITATIVE (BEAKER) (test jind=601) < MG/L FEU <0.50 Intended Use: The [...] 95-100% range.CBC W/ PLT COUNT & AUTO [id number] 04:54:00 Test Item Value Reference Range Comments WHITE BLOOD CELL COUNT (BEAKER) (test tqrz=804) 8.5 K/ L 3.5-10.5 RED BLOOD CELL COUNT (BEAKER) (test drhr=409) 5.30 M/ L 4.63-6.08 HEMOGLOBIN (BEAKER) (test alvj=149) 16.2 GM/DL 13.7-17.5 HEMATOCRIT (BEAKER) (test jrfj=337) 49.2 % 40.1-51.0 MEAN CORPUSCULAR VOLUME (BEAKER) (test fvsm=027) 92.8 fL 79.0-92.2 MEAN CORPUSCULAR HEMOGLOBIN (BEAKER) (test 30.6 pg 25.7-32.2 qfgh=548) MEAN CORPUSCULAR HEMOGLOBIN CONC (BEAKER) (test 32.9 GM/DL 32.3-36.5 ovcp=512) RED CELL DISTRIBUTION WIDTH (BEAKER) (test 13.2 % 11.6-14.4 ixcv=624) PLATELET COUNT (BEAKER) (test yeeq=633) 205 K/CU MM 150-450 MEAN PLATELET VOLUME (BEAKER) (test quac=536) 13.1 fL 9.4-12.4 NUCLEATED RED BLOOD CELLS (BEAKER) (test 0 /100 WBC 0-0 yeoe=578) NEUTROPHILS RELATIVE PERCENT (BEAKER) (test 65 % lhri=856) LYMPHOCYTES RELATIVE PERCENT (BEAKER) (test 27 % obqz=396) MONOCYTES RELATIVE PERCENT (BEAKER) (test 6 % gphu=214) EOSINOPHILS RELATIVE PERCENT (BEAKER) (test 2 % amqm=810) BASOPHILS RELATIVE PERCENT (BEAKER) (test 0 % rsax=625) NEUTROPHILS ABSOLUTE COUNT (BEAKER) (test 5.52 K/ L 1.78-5.38 kwmz=375) LYMPHOCYTES ABSOLUTE COUNT (BEAKER) (test 2.28 K/ L 1.32-3.57 kunv=675) MONOCYTES ABSOLUTE COUNT (BEAKER) (test 0.50 K/ L 0.30-0.82 xtyq=892) EOSINOPHILS ABSOLUTE COUNT (BEAKER) (test 0.17 K/ L 0.04-0.54 akbc=991) BASOPHILS ABSOLUTE COUNT (BEAKER) (test 0.03 K/ L 0.01-0.08 vpom=487) IMMATURE GRANULOCYTES-RELATIVE PERCENT (BEAKER) 0 % 0-1 (test uqsj=8788) COMPREHENSIVE METABOLIC [id number] 18:11:00 Test Item Value Reference Range Comments TOTAL PROTEIN (BEAKER) 7.6 gm/dL 6.0-8.3 (test xtfx=630) ALBUMIN (BEAKER) (test 4.4 g/dL 3.5-5.0 dzmz=9044) ALKALINE PHOSPHATASE 110 U/L 40-150 (BEAKER) (test ldzx=240) BILIRUBIN TOTAL (BEAKER) 0.6 mg/dL 0.2-1.2 (test pzpk=431) SODIUM (BEAKER) (test 140 meq/L 136-145 tuan=997) POTASSIUM (BEAKER) (test 4.5 meq/L 3.5-5.1 xnnu=528) CHLORIDE (BEAKER) (test 105 meq/L 98-107 tqbt=770) CO2 (BEAKER) (test 27 meq/L 22-29 npqk=610) BLOOD UREA NITROGEN 14 mg/dL 7-21 (BEAKER) (test qtxi=212) CREATININE (BEAKER) (test 1.06 mg/dL 0.57-1.25 rkyj=713) GLUCOSE RANDOM (BEAKER) 71 mg/dL 70-105 (test eqdp=496) CALCIUM (BEAKER) (test 9.7 mg/dL 8.4-10.2 vini=599) AST (SGOT) (BEAKER) (test 18 U/L 5-34 aglg=371) ALT (SGPT) (BEAKER) (test 17 U/L 6-55 lrsx=261) EGFR (BEAKER) (test 89 mL/min/1.73 sq m ESTIMATED GFR IS NOT giic=7554) ACCURATE CREATININE CLEARANCE IN PREDICTING GLOMERULAR FILTRATION RATE. ESTIMATED GFR IS NOT APPLICABLE FOR DIALYSIS PATIENTS. [id number] 18:06:00 Test Item Value Reference Range Comments CORTISOL, TOTAL (BEAKER) (test lwen=4350) 11.6 ug/dL 3.7-19.4 [id number] 17:48:00 Test Item Value Reference Range Comments PHOSPHORUS (BEAKER) (test aofw=900) 2.8 mg/dL 2.3-4.7 [id number] 17:48:00 Test Item Value Reference Range Comments MAGNESIUM (BEAKER) (test ytkz=567) 2.1 mg/dL 1.6-2.6 CBC W/PLT COUNT & AUTO [id number] 17:10:00 Test Item Value Reference Range Comments WHITE BLOOD CELL COUNT (BEAKER) (test ouza=588) 9.0 K/ L 3.5-10.5 RED BLOOD CELL COUNT (BEAKER) (test fikt=610) 5.57 M/ L 4.63-6.08 HEMOGLOBIN (BEAKER) (test ttyp=751) 17.4 GM/DL 13.7-17.5 HEMATOCRIT (BEAKER) (test edhb=561) 53.2 % 40.1-51.0 MEAN CORPUSCULAR VOLUME (BEAKER) (test rhkv=747) 95.5 fL 79.0-92.2 MEAN CORPUSCULAR HEMOGLOBIN (BEAKER) (test 31.2 pg 25.7-32.2 ntpc=903) MEAN CORPUSCULAR HEMOGLOBIN CONC (BEAKER) (test 32.7 GM/DL 32.3-36.5 wzhr=771) RED CELL DISTRIBUTION WIDTH (BEAKER) (test 13.5 % 11.6-14.4 jabe=578) PLATELET COUNT (BEAKER) (test yele=505) 220 K/CU MM 150-450 MEAN PLATELET VOLUME (BEAKER) (test tvxl=726) 13.0 fL 9.4-12.4 NUCLEATED RED BLOOD CELLS (BEAKER) (test 0 /100 WBC 0-0 mlrw=990) NEUTROPHILS RELATIVE PERCENT (BEAKER) (test 76 % wtxk=556) LYMPHOCYTES RELATIVE PERCENT (BEAKER) (test 16 % ndsj=437) MONOCYTES RELATIVE PERCENT (BEAKER) (test 7 % vyjl=058) EOSINOPHILS RELATIVE PERCENT (BEAKER) (test 1 % awtc=073) BASOPHILS RELATIVE PERCENT (BEAKER) (test 0 % xzef=089) NEUTROPHILS ABSOLUTE COUNT (BEAKER) (test 6.81 K/ L 1.78-5.38 vpzs=381) LYMPHOCYTES ABSOLUTE COUNT (BEAKER) (test 1.47 K/ L 1.32-3.57 vthp=764) MONOCYTES ABSOLUTE COUNT (BEAKER) (test 0.59 K/ L 0.30-0.82 vdfe=345) EOSINOPHILS ABSOLUTE COUNT (BEAKER) (test 0.10 K/ L 0.04-0.54 aioh=359) BASOPHILS ABSOLUTE COUNT (BEAKER) (test 0.03 K/ L 0.01-0.08 lqib=406) IMMATURE GRANULOCYTES-RELATIVE PERCENT (BEAKER) 0 % 0-1 (test efak=2210)
--- OUTSIDE RECORDS SUMMARY | 2018-05-04 20:56 | XMS REPORT | Clinical Summary ---
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 Saturation 93% 02/16/2018 2:16 PM CDT [...] Specimen Performing Laboratory Blood [facility] Narrative Performed at:[address] [place] [address] Endocrinology [id number] Commercial Real Estate Broker: Min Leary MD, Phone:[phone] RHYTHM STRIP - SCAN (12/27/2017 10:00 AM)Only the most recent of2 resultswithin the time period is included.ECHOCARDIOGRAM REPORT - SCAN (12/10/2017 1:50 PM) TSH/Free T4 If Indicated (12/10/2017 4:18 AM) Component Value Ref Range TSH 10.61 (H) 0.35 - 4.94 uIU/mL Specimen Performing Laboratory Blood - Arm, [address] [address] Calcium, Ionized (12/10/2017 4:18 AM) Component Value Ref Range Calcium, Ion 1.00 (L) 1.12 - 1.27 mmol/L pH, Blood 7.35 Specimen Performing Laboratory Blood - [place], [address] [address] CBC with platelet count + automated diff [...] % Specimen Performing Laboratory Blood - Arm, [address] [address] D-dimer (12/10/2017 4:18 AM) Component Value Ref Range D-Dimer, Quant <0.27 <0.50 MG/L FEU Specimen Performing Laboratory Blood - Arm, [address] [address] Narrative Intended Use: The D-Dimer Assay can [...] Status --------- ------ CBC with platelet count ...[[id number]]AbnormalFinal result Please view results for these tests on the individual orders. T4, free (12/10/2017 4:18 AM) Component Value Ref Range Free T4 1.09 0.70 - 1.48 ng/dL Specimen Performing Laboratory Blood - Arm, [address] [address] Phosphorus (12/10/2017 4:18 AM)Only the most recent of2 resultswithin the time period is included. Component Value Ref Range Phosphorus 3.4 2.3 - 4.7 mg/dL Specimen Performing Laboratory Blood - Arm, [address] [address] Magnesium (12/10/2017 4:18 AM)Only the most recent of2 resultswithin the time period is included. Component Value Ref Range Magnesium 1.7 1.6 - 2.6 mg/dL Specimen Performing Laboratory Blood - Arm, [address] [address] Hemoglobin A1c (12/10/2017 4:18 AM) Component Value Ref Range Hemoglobin A1C 6.2 (H) 4.3 - 6.1 % Specimen Performing Laboratory Blood - Arm, [address] [address] Lipid panel (12/10/2017 4:18 AM) Component Value Ref Range Triglycerides 89 mg/dL Cholesterol 132 mg/dL HDL 36 mg/dL LDL Calculated 78 mg/dL Specimen Performing Laboratory Blood - Arm, [address] [address] Narrative Triglyceride Reference Range: Low Risk <150 [id number] High Risk 200-499 Very High Risk>=500 Cholesterol Reference Range: Low Risk <200 Uivuegrcos266-719 High Risk>240 HDL Cholesterol Reference Range: Low Risk >=60 High Risk <40 LDL Cholesterol Reference Range: Optimal<100 Near Weosqer111-722 Stwmxlgsos575-956 Trap348-261 Very High >=190 Basic Metabolic Panel (12/10/2017 [...] PATIENTS. 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 Aortic Valve Mild aortic regurgitation. Normal AoV structure. Suspect that this may be a zulema-aorta recreated from a pulmonary valve annulus if Kake procedure performed. Mitral Valve Normal MV structure. Mild mitral regurgitation. Tricuspid ValveTV structure is normal. Mild tricuspid regurgitation. Incomplete jet to estimate systemic pressure. Pulmonic Valve PV is not well visualized. Mild pulmonary insufficiency. There is likely a second outflow consistent with a Envng-Cxne-Huekuhv procedure where 2 semilunar outflows have systemic anastomosis AortaAortic root size (SInus of Valsalva diameter) is normal . PericardiumNo pericardial effusion is visualized. IVC/SVC/PA/PV/PleuralThe right upper pulmonary vein (RUPV) is normal . The estimated RA pressure by IVC dynamics 11-15 mmHg . 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 Aortic Valve Mild aortic regurgitation. Normal AoV structure. Suspect that this may be a zulema-aorta recreated from a pulmonary valve annulus if Kake procedure performed. Mitral Valve Normal MV structure. Mild mitral regurgitation. Tricuspid Valve TV structure is normal. Mild tricuspid regurgitation. Incomplete jet to estimate systemic pressure. Pulmonic Valve PV is not well visualized. Mild pulmonary insufficiency. There is likely a second outflow consistent with a Blpba-Zuxk-Dbciyox procedure where 2 semilunar outflows have systemic anastomosis Aorta Aortic root size (SInus of Valsalva diameter) is normal . Pericardium No pericardial effusion is visualized. IVC/SVC/PA/PV/Pleural The right upper pulmonary vein (RUPV) is normal . The estimated RA pressure by IVC dynamics 11-15 mmHg . 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 DKS (Rusty-type) operation and two semilunar [...] lead (12/09/2017 4:51 PM) Specimen Performing Laboratory [employer] [facility] Ventricular Rate 69 BPM Atrial Rate 69 BPM P-R Interval 134 ms QRS Duration 94 ms Q-T Interval 432 ms QTC Calculation(Bazett) 462 ms P [place] 95 degrees R [place] 116 degrees T [place] 106 degrees Electronic atrial pacemaker Right axis deviation Possible Right ventricular hypertrophy Nonspecific ST abnormality T wave inversion in I and aVL Abnormal ECG No previous ECGs available Confirmed by MD ED, RONALD ([id number]) on 12/12/2017 6:27:19 AM Procedure Note Interface, External Ris In - 12/12/2017 6:27 AM 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 Ventricular Rate 69 BPM Atrial Rate 69 BPM P-R Interval 134 ms QRS Duration 94 ms Q-T Interval 432 ms QTC Calculation(Bazett) 462 ms P [place] 95 degrees R [place] 116 degrees T [place] 106 degrees Electronic atrial pacemaker Right axis deviation Possible Right ventricular hypertrophy Nonspecific ST abnormality T wave inversion in I and aVL Abnormal ECG No previous ECGs available Confirmed by MD ED, RONALD ([id number]) on 12/12/2017 6:27:19 AM Cortisol (12/09/2017 4:40 PM) Component Value Ref Range Cortisol, Total 11.6 3.7 - 19.4 ug/dL Specimen Performing Laboratory Blood [address] [address] Comprehensive metabolic panel (12/09/2017 4:40 PM) Component [...] FOR DIALYSIS PATIENTS. Specimen Performing Laboratory Blood [address] [address] after 2017
[2018-05-04] MEDS ORDERED: TETANUS & DIPHTHERIA TOX,ADULT 0.5 ML VIAL ONE (21:51)
--- NOTE | 2018-05-04 23:10 | EDPHYS ---
Physician Documentation [facility] Name: Chace Silva Age: 23 yrs Sex: Male : 1995 Arrival Date: 05/04/2018 Time: 20:56 Bed 5 Private MD: ED Physician Javad Michele HPI: 05/04 21:40 This 23 yrs old Male presents to ER via Ambulatory with complaints of Thumb cp Injury. 21:40 The patient or guardian reports a laceration, irregular. cp 21:40 The complaints affect the distal phalanx left thumb. Context: The problem was sustained cp at work, resulted from use of knife. Onset: The symptoms/episode began/occurred just prior to arrival. Associated signs and symptoms: Pertinent negatives: cyanosis distally, numbness distally. Severity of symptoms: in the emergency department the symptoms have improved, mildly. Historical: - Allergies: 21:03 No Known Allergies; aj1 - Home Meds: 21:03 Ambien 10 mg Oral tab 1 tab once daily [Active]; aspirin 81 mg Oral TbEC 1 tab once aj1 daily [Active]; metoprolol tartrate 12.5 Oral tab 1 tab 2 times per day [Active]; tramadol 50 mg Oral tab 1 tab every 4-6 hours [Active]; - PMHx: 21:03 congenital heart diseas; Hypertension; non epileptic seizures; aj1 - PSHx: 21:03 heart surgeries; aj1 - Immunization history:: Adult Immunizations up to date. - Social history:: Smoking status: Patient/guardian denies using tobacco. - Ebola Screening: : Patient denies travel to an Ebola-affected area in the 21 days before illness onset. ROS: 21:40 Constitutional: Negative for body aches, chills, fever, poor PO intake. cp 21:40 Eyes: Negative for injury, pain, redness, and discharge. cp 21:40 Skin: Positive for laceration(s), of the distal phalanx left thumb. 21:40 Neuro: Negative for numbness. 21:40 All other systems are negative. Exam: 22:00 Constitutional: The patient appears in no acute distress, alert, awake, non-toxic, well cp developed, well nourished. 22:00 Head/Face: Normocephalic, atraumatic. cp 22:00 Eyes: Periorbital structures: appear normal, Conjunctiva: normal, no exudate, no injection, Lids and lashes: appear normal, bilaterally. 22:00 ENT: External ear(s): are unremarkable, Nose: is normal, Posterior pharynx: is normal, airway is patent, no erythema, no exudate. 22:00 Chest/axilla: Inspection: normal. 22:00 Cardiovascular: Rate: normal. 22:00 Respiratory: the patient does not display signs of respiratory distress, Respirations: normal, no use of accessory muscles, no retractions, no splinting, no tachypnea. 22:00 Abdomen/GI: Exam negative for discomfort, distension, guarding, Inspection: abdomen appears normal. 22:00 Musculoskeletal/extremity: Tendon exam: specific tendon testing normal through active and passive range of motion 22:00 Skin: injury, laceration(s), the wound is approximately 2 cm(s), of the distal phalanx left thumb, that can be described as clean, no foreign body, irregular, with mild bleeding, superficial. 22:00 Neuro: Sensation: no obvious gross deficits. Vital Signs: 21:03 BP 127 / 83; Pulse 78; Resp 18; Temp 99.2; Pulse Ox 96% on R/A; Weight 66.68 kg; Height aj1 5 ft. 9 in. (175.26 cm); Pain 0/10; 21:54 BP 129 / 69; Pulse 65; Resp 18; Pulse Ox 95% on R/A; tl2 22:55 BP 119 / 44; Pulse 65; Resp 18; Pulse Ox 95% on R/A; tl2 21:03 Body Mass Index 21.71 (66.68 kg, 175.26 cm) aj1 MDM: 21:13 Patient medically screened. cp 22:00 Differential diagnosis: dislocation, open fracture, closed fracture, simple laceration, cp skin avulsion. 23:10 Data reviewed: vital signs, nurses notes, radiologic studies, plain films. cp 23:10 Test interpretation: by ED physician or midlevel provider: plain radiologic studies. cp Counseling: I had a detailed discussion with the patient and/or guardian regarding: the historical points, exam findings, and any diagnostic results supporting the discharge/admit diagnosis, radiology results, the need for outpatient follow up, a family practitioner, to return to the emergency department if symptoms worsen or persist or if there are any questions or concerns that arise at home. Response to treatment: the patient's symptoms have markedly improved after treatment, and as a result, I will discharge patient. 05/04 21:36 Order name: XRAY Hand LEFT 3 View cp 05/04 21:36 Order name: Wound Care: please clean and irrigate wound; Complete Time: 21:37 cp 05/04 23:08 Order name: Dressing - Wound: pressure, finger splint and finger guaze; Complete Time: 23:21 Administered Medications: 21:54 Drug: Tetanus-Diphtheria Toxoid Adult 0.5 ml {Training And Development Assistant: [employer]. Exp: tl2 07/10/2020. Lot #: [id number]. } Route: IM; Site: right deltoid; 23:21 Follow up: Response: No adverse reaction tl2 Disposition: 05/04/18 23:10 Discharged to Home. Impression: Laceration without foreign body of left thumb without damage to nail. - Condition is Stable. - Discharge Instructions: Non-Sutured Laceration. - Prescriptions for Keflex 500 mg Oral Capsule - take 1 capsule by ORAL route every 8 hours for 7 days; 21 capsule. - Medication Reconciliation Form, Thank You Letter, Antibiotic Education, Prescription Opioid Use form. - Follow up: Private Physician; When: 48 Hours; Reason: Wound Recheck. - Problem is new. - Symptoms have improved. Addendum: 05/08/2018 09:54 Co-signature as Attending Physician, Javad Michele MD I agree with the assessment and c gomez plan of care. Signatures: Dispatcher [employer] EDAlexandra Cordoba RN RN aj1 Javad Michele MD MD cha Page, Corey, PA PA cp Cindy Esparza RN RN tl2 Corrections: (The following items were deleted from the chart) 05/04 23:24 23:10 05/04/2018 23:10 Discharged to Home. Impression: Laceration without foreign body tl2 of left thumb without damage to nail. Condition is Stable. Forms are Medication Reconciliation Form, Thank You Letter, Antibiotic Education, Prescription Opioid Use. Follow up: Private Physician; When: 48 Hours; Reason: Wound Recheck. Problem is new. Symptoms have improved. cp
--- NOTE | 2018-05-04 23:10 | ER ---
Nurse's Notes [facility] Name: Chace Silva Age: 23 yrs Sex: Male : 1995 Arrival Date: 05/04/2018 Time: 20:56 Bed 5 Private MD: Diagnosis: Laceration without foreign body of left thumb without damage to nail Presentation: 05/04 21:01 Presenting complaint: Patient states: He was knocking a dish off into the trash can and aj1 it broke and cut his hand. Transition of care: patient was not received from another setting of care. Onset of symptoms was May 04, 2018. Risk Assessment: Do you want to hurt yourself or someone else? Patient reports no desire to harm self or others. Initial Sepsis Screen: Does the patient meet any 2 criteria? No. Patient's initial sepsis screen is negative. Does the patient have a suspected source of infection? No. Patient's initial sepsis screen is negative. Care prior to arrival: None. 21:01 Method Of Arrival: Ambulatory aj1 21:01 Acuity: NIKOLE 4 aj1 Triage Assessment: 21:03 General: Appears in no apparent distress. comfortable, Behavior is calm, cooperative, aj1 appropriate for age. Pain: Denies pain. Musculoskeletal: Range of motion: intact in all extremities. Injury Description: Laceration sustained to dorsal aspect of distal phalanx of left thumb. Historical: - Allergies: 21:03 No Known Allergies; aj1 - Home Meds: 21:03 Ambien 10 mg Oral tab 1 tab once daily [Active]; aspirin 81 mg Oral TbEC 1 tab once aj1 daily [Active]; metoprolol tartrate 12.5 Oral tab 1 tab 2 times per day [Active]; tramadol 50 mg Oral tab 1 tab every 4-6 hours [Active]; - PMHx: 21:03 congenital heart diseas; Hypertension; non epileptic seizures; aj1 - PSHx: 21:03 heart surgeries; aj1 - Immunization history:: Adult Immunizations up to date. - Social history:: Smoking status: Patient/guardian denies using tobacco. - Ebola Screening: : Patient denies travel to an Ebola-affected area in the 21 days before illness onset. Screenin:11 Abuse screen: Denies threats or abuse. Nutritional screening: No deficits noted. tl2 Tuberculosis screening: No symptoms or risk factors identified. Fall Risk None identified. Assessment: 21:11 General: Appears in no apparent distress. uncomfortable, Behavior is calm, cooperative, tl2 appropriate for age. Pain: Complains of pain in dorsal aspect of distal phalanx of left thumb. Neuro: Level of Consciousness is awake, alert, obeys commands, Oriented to person, place, time, situation. Respiratory: Airway is patent Respiratory effort is even, unlabored, Respiratory pattern is regular, symmetrical. Derm: Skin is pink, warm \T\ dry. 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 21:14 Reassessment: instructed pt to soak thumb in iodine while waiting for provider. tl2 22:55 Reassessment: Patient appears in no apparent distress at this time. Awaiting provider tl2 orders. 23:22 Reassessment: Patient appears in no apparent distress at this time. Patient and/or tl2 family updated on plan of care and expected duration. Pain level reassessed. Patient is alert, oriented x 3, equal unlabored respirations, skin warm/dry/pink. Pt verbalized understanding of discharge instructions, need for follow up, wound care and prescription usage. Vital Signs: 21:03 BP 127 / 83; Pulse 78; Resp 18; Temp 99.2; Pulse Ox 96% on R/A; Weight 66.68 kg; Height aj1 5 ft. 9 in. (175.26 cm); Pain 0/10; 21:54 BP 129 / 69; Pulse 65; Resp 18; Pulse Ox 95% on R/A; tl2 22:55 BP 119 / 44; Pulse 65; Resp 18; Pulse Ox 95% on R/A; tl2 21:03 Body Mass Index 21.71 (66.68 kg, 175.26 cm) aj1 ED Course: 20:56 Patient arrived in ED. am2 21:01 Triage completed. aj1 21:03 Arm band placed on Patient placed. aj1 21:11 Cindy Esparza, RN is Primary Nurse. tl2 21:11 Patient has correct armband on for positive identification. Bed in low position. Call tl2 light in reach. Side rails up X 1. 21:13 Javad Sykes PA is PHCP. cp 21:13 Javad Michele MD is Attending Physician. cp 21:14 Laceration workup initiated per nursing protocol. tl2 22:08 X-ray completed. Portable x-ray completed in exam room. Patient tolerated procedure bb2 well. 22:08 XRAY Hand LEFT 3 View In Process Unspecified. EDMS 23:22 No provider procedures requiring assistance completed. Patient did not have IV access tl2 during this emergency room visit. Administered Medications: 21:54 Drug: Tetanus-Diphtheria Toxoid Adult 0.5 ml {Beer Runner: [employer]. Exp: tl2 07/10/2020. Lot #: [id number]. } Route: IM; Site: right deltoid; 23:21 Follow up: Response: No adverse reaction tl2 Outcome: 23:10 Discharge ordered by . cp 23:22 Discharged to home ambulatory. tl2 23:22 Condition: stable 23:22 Discharge instructions given to patient, Instructed on discharge instructions, follow up and referral plans. medication usage, wound care, Demonstrated understanding of instructions, follow-up care, medications, wound care, Prescriptions given X 1. 23:24 Patient left the ED. tl2 Signatures: Dispatcher [employer] EDMS Alexandra Abdi RN RN aj1 Javad Sykes PA PA cp Cindy Esparza RN RN tl2 Leonor Moser am2 Shelia Nicholas bb2
--- NOTE | 2018-05-05 08:08 | RAD REPORT ---
EXAM DESCRIPTION: RAD -Hand Left 3 View - 05/04/2018 10:10 pm CLINICAL HISTORY: Left hand pain status post injury FINDINGS: No fracture or dislocation is seen.
== END 2018-05-04 23:24 | disposition home or self-care (01) ==
LOC: ER 20:54
DX: S61.012A Laceration without foreign body of left thumb without damage to nail, initial encounter (principal); W26.0XXA Contact with knife, initial encounter; Y93.9 Activity, unspecified; Y92.9 Unspecified place or not applicable; Y99.0 Civilian activity done for income or pay; Z23 Encounter for immunization
CPT/HCPCS: 90714; 99283

== ENCOUNTER 2018-08-22 22:36 | Emergency (ER) | payer OTHER ==
--- OUTSIDE RECORDS SUMMARY | 2018-08-22 22:38 | XMS REPORT ---
:1995 [facility] Address [address] [place] [address] Care Team Providers Name Role Phone MARILUEMMY [...] Reference Range Comments FREE T4 (BEAKER) (test tzoa=817) 1.09 ng/dL 0.70-1.48 HEMOGLOBIN [id number] 10:04:00 Test Item Value Reference Range Comments HEMOGLOBIN A1C (BEAKER) (test dcqm=010) 6.2 % 4.3-6.1 CALCIUM, [id number] 07:52:00 Test Item Value Reference Range Comments CALCIUM IONIZED (BEAKER) (test rgnc=563) 1.00 mmol/L 1.12-1.27 PH, BLOOD (BEAKER) (test bxbl=2053) 7.35 [id number] 06:09:00 Test Item Value Reference Range Comments PHOSPHORUS (BEAKER) (test zbdi=807) 3.4 mg/dL 2.3-4.7 [id number] 06:09:00 Test Item Value Reference Range Comments MAGNESIUM (BEAKER) (test cegf=070) 1.7 mg/dL 1.6-2.6 BASIC METABOLIC [id number] 06:09:00 Test Item Value Reference Range Comments SODIUM (BEAKER) (test 139 meq/L 136-145 bcsb=706) POTASSIUM (BEAKER) (test 3.6 meq/L 3.5-5.1 zweb=852) CHLORIDE (BEAKER) (test 106 meq/L 98-107 akpc=752) CO2 (BEAKER) (test 24 meq/L 22-29 nfll=768) BLOOD UREA NITROGEN 11 mg/dL 7-21 (BEAKER) (test ecei=776) CREATININE (BEAKER) (test 0.78 mg/dL 0.57-1.25 pttx=948) GLUCOSE RANDOM (BEAKER) 86 mg/dL 70-105 (test fdah=293) CALCIUM (BEAKER) (test 8.9 mg/dL 8.4-10.2 conk=200) EGFR (BEAKER) (test 127 mL/min/1.73 sq m ESTIMATED GFR IS NOT svkh=8849) ACCURATE CREATININE CLEARANCE IN PREDICTING GLOMERULAR FILTRATION RATE. ESTIMATED GFR IS NOT APPLICABLE FOR DIALYSIS PATIENTS. LIPID [id number] 06:09:00 Test Item Value Reference Range Comments TRIGLYCERIDES (BEAKER) (test lclb=063) 89 mg/dL CHOLESTEROL (BEAKER) (test vxko=909) 132 mg/dL HDL CHOLESTEROL (BEAKER) (test ibef=000) 36 mg/dL LDL CHOLESTEROL CALCULATED (BEAKER) (test 78 mg/dL hjxz=903) Triglyceride Reference Range: Low Risk <150 Borderline 150- 199 High Risk 200-499 Very High Risk >=500Cholesterol Reference Range: Low Risk <200 Borderline 200-239 High Risk > 240HDL Cholesterol Reference Range: Low Risk >=60 High Risk <40LDL Cholesterol Reference Range: Optimal <100 Near Optimal 100-129 Borderline 130-159 High 160-189 Very High >=190TSH/FREE T4 IF [id number] 05:58:00 Test Item Value Reference Range Comments THYROID STIMULATING HORMONE (BEAKER) (test 10.61 uIU/mL 0.35-4.94 sxmh=293) [id number] 05:44:00 Test Item Value Reference Range Comments D-DIMER QUANTITATIVE (BEAKER) (test zsdi=003) < MG/L FEU <0.50 Intended Use: The [...] 95-100% range.CBC W/ PLT COUNT & AUTO [id number] 04:54:00 Test Item Value Reference Range Comments WHITE BLOOD CELL COUNT (BEAKER) (test xthi=230) 8.5 K/ L 3.5-10.5 RED BLOOD CELL COUNT (BEAKER) (test ugzn=426) 5.30 M/ L 4.63-6.08 HEMOGLOBIN (BEAKER) (test yxtk=838) 16.2 GM/DL 13.7-17.5 HEMATOCRIT (BEAKER) (test fgnk=633) 49.2 % 40.1-51.0 MEAN CORPUSCULAR VOLUME (BEAKER) (test bnxv=504) 92.8 fL 79.0-92.2 MEAN CORPUSCULAR HEMOGLOBIN (BEAKER) (test 30.6 pg 25.7-32.2 jhpa=904) MEAN CORPUSCULAR HEMOGLOBIN CONC (BEAKER) (test 32.9 GM/DL 32.3-36.5 qzei=105) RED CELL DISTRIBUTION WIDTH (BEAKER) (test 13.2 % 11.6-14.4 zvlw=071) PLATELET COUNT (BEAKER) (test hvdm=368) 205 K/CU MM 150-450 MEAN PLATELET VOLUME (BEAKER) (test oizt=493) 13.1 fL 9.4-12.4 NUCLEATED RED BLOOD CELLS (BEAKER) (test 0 /100 WBC 0-0 mtmb=245) NEUTROPHILS RELATIVE PERCENT (BEAKER) (test 65 % vnmk=500) LYMPHOCYTES RELATIVE PERCENT (BEAKER) (test 27 % rhrx=674) MONOCYTES RELATIVE PERCENT (BEAKER) (test 6 % dodn=006) EOSINOPHILS RELATIVE PERCENT (BEAKER) (test 2 % luey=710) BASOPHILS RELATIVE PERCENT (BEAKER) (test 0 % qhdk=828) NEUTROPHILS ABSOLUTE COUNT (BEAKER) (test 5.52 K/ L 1.78-5.38 mbhd=100) LYMPHOCYTES ABSOLUTE COUNT (BEAKER) (test 2.28 K/ L 1.32-3.57 jmmt=759) MONOCYTES ABSOLUTE COUNT (BEAKER) (test 0.50 K/ L 0.30-0.82 gisc=485) EOSINOPHILS ABSOLUTE COUNT (BEAKER) (test 0.17 K/ L 0.04-0.54 xccp=051) BASOPHILS ABSOLUTE COUNT (BEAKER) (test 0.03 K/ L 0.01-0.08 wjys=357) IMMATURE GRANULOCYTES-RELATIVE PERCENT (BEAKER) 0 % 0-1 (test nmsl=3241) COMPREHENSIVE METABOLIC [id number] 18:11:00 Test Item Value Reference Range Comments TOTAL PROTEIN (BEAKER) 7.6 gm/dL 6.0-8.3 (test uuno=668) ALBUMIN (BEAKER) (test 4.4 g/dL 3.5-5.0 orhk=2124) ALKALINE PHOSPHATASE 110 U/L 40-150 (BEAKER) (test hgmm=065) BILIRUBIN TOTAL (BEAKER) 0.6 mg/dL 0.2-1.2 (test ptci=063) SODIUM (BEAKER) (test 140 meq/L 136-145 ekvw=823) POTASSIUM (BEAKER) (test 4.5 meq/L 3.5-5.1 vggz=495) CHLORIDE (BEAKER) (test 105 meq/L 98-107 wnsn=691) CO2 (BEAKER) (test 27 meq/L 22-29 mhgx=623) BLOOD UREA NITROGEN 14 mg/dL 7-21 (BEAKER) (test aukv=345) CREATININE (BEAKER) (test 1.06 mg/dL 0.57-1.25 iyly=337) GLUCOSE RANDOM (BEAKER) 71 mg/dL 70-105 (test nnnd=897) CALCIUM (BEAKER) (test 9.7 mg/dL 8.4-10.2 vpiv=209) AST (SGOT) (BEAKER) (test 18 U/L 5-34 lywc=144) ALT (SGPT) (BEAKER) (test 17 U/L 6-55 wlmj=352) EGFR (BEAKER) (test 89 mL/min/1.73 sq m ESTIMATED GFR IS NOT jwfw=1701) ACCURATE CREATININE CLEARANCE IN PREDICTING GLOMERULAR FILTRATION RATE. ESTIMATED GFR IS NOT APPLICABLE FOR DIALYSIS PATIENTS. [id number] 18:06:00 Test Item Value Reference Range Comments CORTISOL, TOTAL (BEAKER) (test cfuk=5895) 11.6 ug/dL 3.7-19.4 [id number] 17:48:00 Test Item Value Reference Range Comments PHOSPHORUS (BEAKER) (test igif=329) 2.8 mg/dL 2.3-4.7 [id number] 17:48:00 Test Item Value Reference Range Comments MAGNESIUM (BEAKER) (test xpss=966) 2.1 mg/dL 1.6-2.6 CBC W/PLT COUNT & AUTO [id number] 17:10:00 Test Item Value Reference Range Comments WHITE BLOOD CELL COUNT (BEAKER) (test nsoq=339) 9.0 K/ L 3.5-10.5 RED BLOOD CELL COUNT (BEAKER) (test uayk=560) 5.57 M/ L 4.63-6.08 HEMOGLOBIN (BEAKER) (test orfv=048) 17.4 GM/DL 13.7-17.5 HEMATOCRIT (BEAKER) (test kcpm=016) 53.2 % 40.1-51.0 MEAN CORPUSCULAR VOLUME (BEAKER) (test bqis=622) 95.5 fL 79.0-92.2 MEAN CORPUSCULAR HEMOGLOBIN (BEAKER) (test 31.2 pg 25.7-32.2 smux=684) MEAN CORPUSCULAR HEMOGLOBIN CONC (BEAKER) (test 32.7 GM/DL 32.3-36.5 pzlc=317) RED CELL DISTRIBUTION WIDTH (BEAKER) (test 13.5 % 11.6-14.4 yeor=814) PLATELET COUNT (BEAKER) (test xxwz=376) 220 K/CU MM 150-450 MEAN PLATELET VOLUME (BEAKER) (test ezwk=965) 13.0 fL 9.4-12.4 NUCLEATED RED BLOOD CELLS (BEAKER) (test 0 /100 WBC 0-0 lluo=061) NEUTROPHILS RELATIVE PERCENT (BEAKER) (test 76 % uivz=425) LYMPHOCYTES RELATIVE PERCENT (BEAKER) (test 16 % zaco=734) MONOCYTES RELATIVE PERCENT (BEAKER) (test 7 % isre=058) EOSINOPHILS RELATIVE PERCENT (BEAKER) (test 1 % ceuj=942) BASOPHILS RELATIVE PERCENT (BEAKER) (test 0 % vjbr=923) NEUTROPHILS ABSOLUTE COUNT (BEAKER) (test 6.81 K/ L 1.78-5.38 dvvl=652) LYMPHOCYTES ABSOLUTE COUNT (BEAKER) (test 1.47 K/ L 1.32-3.57 swpo=392) MONOCYTES ABSOLUTE COUNT (BEAKER) (test 0.59 K/ L 0.30-0.82 qucy=715) EOSINOPHILS ABSOLUTE COUNT (BEAKER) (test 0.10 K/ L 0.04-0.54 vwrv=233) BASOPHILS ABSOLUTE COUNT (BEAKER) (test 0.03 K/ L 0.01-0.08 twwx=855) IMMATURE GRANULOCYTES-RELATIVE PERCENT (BEAKER) 0 % 0-1 (test mwul=9339)
--- OUTSIDE RECORDS SUMMARY | 2018-08-22 22:38 | XMS REPORT | Clinical Summary ---
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 Oxygen Saturation 93% 02/16/2018 2:16 PM CDT [...] Specimen Performing Laboratory Blood [facility] Narrative Performed at:[address] [place] [address] Endocrin[id number] Clinical Trial Head: Min Leary MD, Phone:[phone] RHYTHM STRIP - SCAN (12/27/2017 10:00 AM)Only the most recent of2 resultswithin the time period is included.ECHOCARDIOGRAM REPORT - SCAN (12/10/2017 1:50 PM) TSH/Free T4 If Indicated (12/10/2017 4:18 AM) Component Value Ref Range TSH 10.61 (H) 0.35 - 4.94 uIU/mL Specimen Performing Laboratory Blood - [place], [address] [address] Calcium, Ionized (12/10/2017 4:18 AM) Component Value Ref Range Calcium, Ion 1.00 (L) 1.12 - 1.27 mmol/L pH, Blood 7.35 Specimen Performing Laboratory Blood - [place], [address] [address] CBC with platelet count + automated diff [...] % Specimen Performing Laboratory Blood - Arm, [address] [address] D-dimer (12/10/2017 4:18 AM) Component Value Ref Range D-Dimer, Quant <0.27 <0.50 MG/L FEU Specimen Performing Laboratory Blood - Arm, [address] [address] Narrative Intended Use: The D-Dimer Assay can [...] Status --------- ------ CBC with platelet count ...[[id number]]AbnormalFinal result Please view results for these tests on the individual orders. T4, free (12/10/2017 4:18 AM) Component Value Ref Range Free T4 1.09 0.70 - 1.48 ng/dL Specimen Performing Laboratory Blood - Arm, [address] [address] Phosphorus (12/10/2017 4:18 AM)Only the most recent of2 resultswithin the time period is included. Component Value Ref Range Phosphorus 3.4 2.3 - 4.7 mg/dL Specimen Performing Laboratory Blood - Arm, [address] [address] Magnesium (12/10/2017 4:18 AM)Only the most recent of2 resultswithin the time period is included. Component Value Ref Range Magnesium 1.7 1.6 - 2.6 mg/dL Specimen Performing Laboratory Blood - Arm, [address] [address] Hemoglobin A1c (12/10/2017 4:18 AM) Component Value Ref Range Hemoglobin A1C 6.2 (H) 4.3 - 6.1 % Specimen Performing Laboratory Blood - Arm, [address] [address] Lipid panel (12/10/2017 4:18 AM) Component Value Ref Range Triglycerides 89 mg/dL Cholesterol 132 mg/dL HDL 36 mg/dL LDL Calculated 78 mg/dL Specimen Performing Laboratory Blood - Arm, [address] [address] Narrative Triglyceride Reference Range: Low Risk <150 Golrxexdxm607-980 High Risk 200-499 Very High Risk>=500 Cholesterol Reference Range: Low Risk <200 Msuablufqg037-000 High Risk>240 HDL Cholesterol Reference Range: Low Risk >=60 High Risk <40 LDL Cholesterol Reference Range: Optimal<100 Near Ireskuv300-115 Lyswbfmwps497-822 Kpdx641-046 Very High >=190 Basic Metabolic Panel (12/10/2017 [...] PATIENTS. 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, [facility]), s/p PPM for SSS (2014, [facility]) Height: 68 inches Weight: 63.5 kg [...] likely a second outflow consistent with a Elnym-Shqt-Mhrhcbo procedure where 2 semilunar outflows have systemic [...] External Ris In - 12/10/2017 1:09 PM [employer]PRODUCTS EXTRACTOR Transthoracic Echocardiography Report (TTE) Demographics Patient Name CHACE LO Date of Study 12/09/2017 Gender Male Visit Number [id number] Race Unknown Room Number 1046 Number Date of 1995 Referring Physician Aman Brunner MD Age 22 year(s) [employer] Voice Coach Emerita Lassiter Interpreting Dandre Worrell Physician Jason Holland MD Procedure Type of Study TTE procedure:2DECHO W DOPPLER(CW/PW/COLOR) (STAT) Indications:Unexplained Pre-syncope/Syncope. 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 Mitral Valve Normal MV structure. Mild mitral regurgitation. Tricuspid Valve TV structure is normal. Mild tricuspid regurgitation. Incomplete jet to estimate systemic pressure. Pulmonic Valve PV is not well visualized. Mild pulmonary insufficiency. There is likely a second outflow consistent with a Lsgtd-Tsih-Ydkgfke procedure where 2 semilunar outflows have systemic [...] lead (12/09/2017 4:51 PM) Specimen Performing Laboratory [employer] [facility] Ventricular Rate 69 BPM Atrial Rate 69 BPM P-R Interval 134 ms QRS Duration 94 ms Q-T Interval 432 ms QTC Calculation(Bazett) 462 ms P Creston 95 degrees R Creston 116 degrees T Creston 106 degrees Electronic atrial pacemaker Right axis deviation Possible Right ventricular hypertrophy Nonspecific ST abnormality T wave inversion in I and aVL Abnormal ECG No previous ECGs available Confirmed by MD ED, RONALD ([id number]) on 12/12/2017 6:27:19 AM Procedure Note Interface, External Ris In - 12/12/2017 6:27 AM [employer]PRODUCTS EXTRACTOR Ventricular Rate 69 BPM Atrial Rate 69 BPM P-R Interval 134 ms QRS Duration 94 ms Q-T Interval 432 ms QTC Calculation(Bazett) 462 ms P Creston 95 degrees R Creston 116 degrees T Creston 106 degrees Electronic atrial pacemaker Right axis deviation Possible Right ventricular hypertrophy Nonspecific ST abnormality T wave inversion in I and aVL Abnormal ECG No previous ECGs available Confirmed by MD ED, RONALD ([id number]) on 12/12/2017 6:27:19 AM Cortisol (12/09/2017 4:40 PM) Component Value Ref Range Cortisol, Total 11.6 3.7 - 19.4 ug/dL Specimen Performing Laboratory Blood [address] [address] Comprehensive metabolic panel (12/09/2017 4:40 PM) Component [...] FOR DIALYSIS PATIENTS. Specimen Performing Laboratory Blood [address] [address] after 08/21/2017
[2018-08-22] MEDS ORDERED: FENTANYL CITR 100 MCG/2 ML ONE (23:08)
[2018-08-22] MEDS ORDERED: ONDANSETRON 4 MG/2 ML VIAL ONE (23:08)
[2018-08-22 23:23] LABS: Absolute Monocytes 0.9 K/uL (0.1-1.3); Absolute Neutrophil 8.8 K/uL (1.8-8.0); Basophils % 0.4 % (0-1.3); Eosinophils % 1.5 % (0-4.4); Hematocrit 55.1 % (39.6-49.0); Lymphocytes % 23.5 % (15.3-44.8); MCH 32.4 pg (27.0-35.0); MCV 95.5 fL (80-100); Monocytes % 6.6 % (3.3-12.3); RBC Red Blood Cell Count 5.77 M/uL (4.33-5.43)
[2018-08-22 23:34] LABS: Albumin 5.1 g/dL (3.4-5.0); Bilirubin Direct 0.2 mg/dL (0-0.2); Bilirubin Total 0.7 mg/dL (0.2-1.0); Potassium 4.2 mmol/L (3.5-5.1); Protein, Total 8.3 g/dL (6.4-8.2)
[2018-08-23] MEDS ORDERED: LIDOCAINE 1% MPF 30 ML VIAL ONE (01:12)
[2018-08-23] MEDS ORDERED: LIDOCAINE 1% W/EPI 1:100,000 MDV 50 ML VIAL ONE (01:12)
[2018-08-23] MEDS ORDERED: FENTANYL CITR 100 MCG/2 ML ONE (01:43)
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
--- NOTE | 2018-08-23 10:45 | EKG ---
Test Date: 2018-08-22 Test Time: 22:50:50 911 Dispatcher: LENA MEASUREMENT RESULTS: Intervals: Rate: 109 OR: 122 QRSD: 100 QT: 336 QTc: 452 [place]: P: -17 OR: 122 QRS: 117 T: 5 INTERPRETIVE STATEMENTS: Sinus tachycardia Right axis deviation Possible Right ventricular hypertrophy Nonspecific ST and T wave abnormality Abnormal ECG No previous ECG available for comparison Electronically Signed On 08-23-18 10:45:21 CDT by Mauricio Pretty
== END 2018-08-23 02:38 | disposition home or self-care (01) ==
LOC: ER 22:36
PROC: 0HQ3XZZ Repair Left Ear Skin, External Approach (ICD-10-PCS; principal; 2018-08-23)
PROC: 0JQ10ZZ Repair Face Subcutaneous Tissue and Fascia, Open Approach (ICD-10-PCS; 2018-08-23)
PROC: 0JQ00ZZ Repair Scalp Subcutaneous Tissue and Fascia, Open Approach (ICD-10-PCS; 2018-08-23)
DX: S01.01XA Laceration without foreign body of scalp, initial encounter (principal); S01.312A Laceration without foreign body of left ear, initial encounter; S01.81XA Laceration without foreign body of other part of head, initial encounter; W22.8XXA Striking against or struck by other objects, initial encounter; Y93.9 Activity, unspecified; Y92.89 Other specified places as the place of occurrence of the external cause; Z72.0 Tobacco use; Z95.0 Presence of cardiac pacemaker; I10 Essential (primary) hypertension
CPT/HCPCS: 36415; 70450; 71045; 72125; 80048; 80076; 85025; 93005; 96374; 96375; 99285; J2405; J3010

== ENCOUNTER 2018-09-05 11:49 | Emergency (ER) | payer OTHER ==
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
--- NOTE | 2018-09-05 12:04 | EDPHYS ---
Physician Documentation [facility] Name: Chace Silva Age: 23 yrs Sex: Male : 1995 Arrival Date: 09/05/2018 Time: 11:51 Bed 12 Private MD: ED Physician Stephen Turpin HPI: 09/05 12:00 This 23 yrs old Male presents to ER via Ambulatory with complaints of Staple cp Removal. 12:00 The patient has jan on the scalp. Previous treatment: The patient was initially cp treated on August 23, 2018, the care was rendered at [facility], Treatment type: The patient's original treatment included jan, sutures. Sutures/jan progress: The patient has no c/o's. The wound is well-healing with no redness, swelling, discharge, or dehiscence reported. Historical: - Allergies: 11:55 Ibuprofen; ch - PMHx: 11:55 congenital heart diseas; Hypertension; non epileptic seizures; ch - PSHx: 11:55 heart surgeries; heart pacer; ch - Immunization history:: Adult Immunizations up to date. - Social history:: Smoking status: unknown. - Ebola Screening: : Patient negative for fever greater than or equal to 101.5 degrees Fahrenheit, and additional compatible Ebola Virus Disease symptoms Patient denies exposure to infectious person Patient denies travel to an Ebola-affected area in the 21 days before illness onset No symptoms or risks identified at this time. ROS: 12:00 Constitutional: Negative for fever, chills, and weight loss. cp 12:00 Cardiovascular: Negative for chest pain. 12:00 Respiratory: Negative for cough, shortness of breath, wheezing. 12:00 Skin: Negative for cellulitis, rash. 12:00 Neuro: Negative for headache. 12:00 All other systems are negative. Exam: 12:01 Constitutional: The patient appears in no acute distress, alert, awake, non-toxic, well cp developed, well nourished. 12:01 Head/face: Exam is negative for erythema, swelling, tenderness. cp 12:01 Eyes: Pupils: equal, round, and reactive to light and accomodation, Extraocular movements: intact throughout, Conjunctiva: normal, no exudate, no injection, Sclera: no appreciated abnormality. 12:01 ENT: Nose: is normal, Mouth: is normal. 12:01 Chest/axilla: Inspection: normal. 12:01 Cardiovascular: Rate: normal. 12:01 Respiratory: the patient does not display signs of respiratory distress, Respirations: normal, no use of accessory muscles, no retractions, no splinting, no tachypnea. 12:01 Abdomen/GI: Inspection: abdomen appears normal. 12:01 Skin: Wound recheck: Staple laceration closure: the wound is healing well, the edges are well approximated, no evidence of dehiscence, no drainage, no erythema, no swelling, Suture laceration closure: the wound is healing well, the edges are well approximated, no evidence of dehiscence, no drainage, no erythema, no swelling. Vital Signs: 11:55 BP 128 / 74; Pulse 61; Resp 15; Temp 98.3; Pulse Ox 99% on R/A; Weight 61.23 kg; Height ch 5 ft. 9 in. (175.26 cm); Pain 1/10; 11:55 Body Mass Index 19.94 (61.23 kg, 175.26 cm) MDM: 11:57 Patient medically screened. cp 12:03 Data reviewed: vital signs, nurses notes, and as a result, I will have jan removed cp by nursing staff. Administered Medications: No medications were administered Disposition: 12:30 Chart complete. cp 16:09 Co-signature as Attending Physician, Stephen Turpin MD. rn Disposition: 09/05/18 12:03 Discharged to Home. Impression: Encounter for removal of jan. - Condition is Stable. - Discharge Instructions: Stitches, Jan, or Adhesive Wound Closure, [id number]. - Medication Reconciliation Form, Thank You Letter, Antibiotic Education, Prescription Opioid Use form. - Follow up: Emergency Department; When: As needed; Reason: Worsening of condition. - Problem is new. - Symptoms have improved. Signatures: Mercy Boogie RN RN Stephen Turpin MD MD rn Page, Corey, PA PA Corrections: (The following items were deleted from the chart) 12:03 12:03 09/05/2018 12:03 Discharged to Home. Impression: Encounter for removal of sutures cp - [place] from scalp. Condition is Stable. Forms are Medication Reconciliation Form, Thank You Letter, Antibiotic Education, Prescription Opioid Use. Follow up: Emergency Department; When: As needed; Reason: Worsening of condition. Problem is new. Symptoms have improved. cp 12:18 12:03 09/05/2018 12:03 Discharged to Home. Impression: Encounter for removal of ch jan. Condition is Stable. Forms are Medication Reconciliation Form, Thank You Letter, Antibiotic Education, Prescription Opioid Use. Follow up: Emergency Department; When: As needed; Reason: Worsening of condition. Problem is new. Symptoms have improved. cp
--- OUTSIDE RECORDS SUMMARY | 2018-09-05 12:08 | XMS REPORT | Clinical Summary ---
:1995 Author Organization [facility] Address [address] [place] [address] Phone Care Team Providers Name Role Phone [...] syndrome (Primary Dx);History of heart surgery after 09/04/2017 Immunizations Name Dates Previously Given Next Due [...] CDT Respiratory Rate 18 12/10/2017 3:00 PM FIRST AID TRAINER Oxygen Saturation 93% 02/16/2018 2:16 PM CDT [...] Specimen Performing Laboratory Blood [facility] Narrative Performed at:[address] [place] [address] Endocrinology [id number] [employer]icon[employer] Processor: Min Leary MD, Phone:[phone] RHYTHM STRIP - SCAN (12/27/2017 10:00 AM)Only the most recent of2 resultswithin the time period is included.ECHOCARDIOGRAM REPORT - SCAN (12/10/2017 1:50 PM) TSH/Free T4 If Indicated (12/10/2017 4:18 AM) Component Value Ref Range TSH 10.61 (H) 0.35 - 4.94 uIU/mL Specimen Performing Laboratory Blood - Arm, [address] [address] Calcium, Ionized (12/10/2017 4:18 AM) Component Value Ref Range Calcium, Ion 1.00 (L) 1.12 - 1.27 mmol/L pH, Blood 7.35 Specimen Performing Laboratory Blood - [place], [address] [address] CBC with platelet count + automated diff [...] % Specimen Performing Laboratory Blood - Arm, [address] [address] D-dimer (12/10/2017 4:18 AM) Component Value Ref Range D-Dimer, Quant <0.27 <0.50 MG/L FEU Specimen Performing Laboratory Blood - Arm, [address] [address] Narrative Intended Use: The D-Dimer Assay can [...] Status --------- ------ CBC with platelet count ...[[id number]]AbnormalFinal result Please view results for these tests on the individual orders. T4, free (12/10/2017 4:18 AM) Component Value Ref Range Free T4 1.09 0.70 - 1.48 ng/dL Specimen Performing Laboratory Blood - Arm, [address] [address] Phosphorus (12/10/2017 4:18 AM)Only the most recent of2 resultswithin the time period is included. Component Value Ref Range Phosphorus 3.4 2.3 - 4.7 mg/dL Specimen Performing Laboratory Blood - Arm, [address] [address] Magnesium (12/10/2017 4:18 AM)Only the most recent of2 resultswithin the time period is included. Component Value Ref Range Magnesium 1.7 1.6 - 2.6 mg/dL Specimen Performing Laboratory Blood - Arm, [address] [address] Hemoglobin A1c (12/10/2017 4:18 AM) Component Value Ref Range Hemoglobin A1C 6.2 (H) 4.3 - 6.1 % Specimen Performing Laboratory Blood - Arm, [address] [address] Lipid panel (12/10/2017 4:18 AM) Component Value Ref Range Triglycerides 89 mg/dL Cholesterol 132 mg/dL HDL 36 mg/dL LDL Calculated 78 mg/dL Specimen Performing Laboratory Blood - Arm, [address] [address] Narrative Triglyceride Reference Range: Low Risk <150 Enqsibznjz410-719 High Risk 200-499 Very High Risk>=500 Cholesterol Reference Range: Low Risk <200 Gvsgcfcpgh528-821 High Risk>240 HDL Cholesterol Reference Range: Low Risk >=60 High Risk <40 LDL Cholesterol Reference Range: Optimal<100 Near Uuustwo974-937 Lfaycnjwge878-702 Oipn058-868 Very High >=190 Basic Metabolic Panel (12/10/2017 [...] PATIENTS. 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 Mitral Valve Normal MV structure. Mild mitral regurgitation. Tricuspid ValveTV structure is normal. Mild tricuspid regurgitation. Incomplete jet to estimate systemic pressure. Pulmonic Valve PV is not well visualized. Mild pulmonary insufficiency. There is likely a second outflow consistent with a Jnqef-Cxfi-Smijneb procedure where 2 semilunar outflows have systemic anastomosis AortaAortic root size (SInus of Valsalva diameter) is normal . PericardiumNo pericardial effusion is visualized. IVC/SVC/PA/PV/PleuralThe right upper pulmonary vein (RUPV) is normal . The estimated RA pressure by IVC dynamics 11-15 mmHg . 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 Pericardium No pericardial effusion is visualized. IVC/SVC/PA/PV/Pleural The right upper pulmonary vein (RUPV) is normal . The estimated RA pressure by IVC dynamics 11-15 mmHg . 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, systemic outflows, [...] lead (12/09/2017 4:51 PM) Specimen Performing Laboratory [facility] Ventricular Rate 69 BPM Atrial Rate 69 BPM P-R Interval 134 ms QRS Duration 94 ms Q-T Interval 432 ms QTC Calculation(Bazett) 462 ms P [place] 95 degrees R [place] 116 degrees T [place] 106 degrees Electronic atrial pacemaker Right axis deviation Possible Right ventricular hypertrophy Nonspecific ST abnormality T wave inversion in I and aVL Abnormal ECG No previous ECGs available Confirmed by MD ED, RONALD ([id number]) on 12/12/2017 6:27:19 AM Procedure Note Interface, External Ris In - 12/12/2017 6:27 AM FIRST AID TRAINER Ventricular Rate 69 BPM Atrial Rate 69 BPM P-R Interval 134 ms QRS Duration 94 ms Q-T Interval 432 ms QTC Calculation(Bazett) 462 ms P [place] 95 degrees R [place] 116 degrees T [place] 106 degrees Electronic atrial pacemaker Right axis deviation Possible Right ventricular hypertrophy Nonspecific ST abnormality T wave inversion in I and aVL Abnormal ECG No previous ECGs available Confirmed by MD ED, RONALD ([id number]) on 12/12/2017 6:27:19 AM Cortisol (12/09/2017 4:40 PM) Component Value Ref Range Cortisol, Total 11.6 3.7 - 19.4 ug/dL Specimen Performing Laboratory Blood [address] [address] Comprehensive metabolic panel (12/09/2017 4:40 PM) Component [...] FOR DIALYSIS PATIENTS. Specimen Performing Laboratory Blood [address] [address] after 09/04/2017
--- OUTSIDE RECORDS SUMMARY | 2018-09-05 12:09 | XMS REPORT ---
:1995 [facility] Address [facility] [place] [address] Care Team Providers Name Role Phone MARILUMARIPOSA EMMY Unavailable Unavailable Problems This patient has no known problems. Allergies, Adverse Reactions, Alerts This patient has no known allergies or adverse reactions. Medications This patient has no known medications. Results Test Description Test Time Test Comments Text Results Atomic Results Result Comments T4, FREE 2017-12-10 11:47:00 Test Item Value Reference Range Comments FREE T4 (BEAKER) (test lher=833) 1.09 ng/dL 0.70-1.48 HEMOGLOBIN [id number] 10:04:00 Test Item Value Reference Range Comments HEMOGLOBIN A1C (BEAKER) (test cvsa=865) 6.2 % 4.3-6.1 CALCIUM, [id number] 07:52:00 Test Item Value Reference Range Comments CALCIUM IONIZED (BEAKER) (test yvkx=361) 1.00 mmol/L 1.12-1.27 PH, BLOOD (BEAKER) (test cjcl=5954) 7.35 [id number] 06:09:00 Test Item Value Reference Range Comments PHOSPHORUS (BEAKER) (test qmeb=703) 3.4 mg/dL 2.3-4.7 [id number] 06:09:00 Test Item Value Reference Range Comments MAGNESIUM (BEAKER) (test eqpw=428) 1.7 mg/dL 1.6-2.6 BASIC METABOLIC [id number] 06:09:00 Test Item Value Reference Range Comments SODIUM (BEAKER) (test 139 meq/L 136-145 lbxx=497) POTASSIUM (BEAKER) (test 3.6 meq/L 3.5-5.1 jszw=810) CHLORIDE (BEAKER) (test 106 meq/L 98-107 ndvc=368) CO2 (BEAKER) (test 24 meq/L 22-29 ikpj=986) BLOOD UREA NITROGEN 11 mg/dL 7-21 (BEAKER) (test ktze=375) CREATININE (BEAKER) (test 0.78 mg/dL 0.57-1.25 shij=099) GLUCOSE RANDOM (BEAKER) 86 mg/dL 70-105 (test ymjz=660) CALCIUM (BEAKER) (test 8.9 mg/dL 8.4-10.2 uipa=245) EGFR (BEAKER) (test 127 mL/min/1.73 sq m ESTIMATED GFR IS NOT iers=0675) ACCURATE CREATININE CLEARANCE IN PREDICTING GLOMERULAR FILTRATION RATE. ESTIMATED GFR IS NOT APPLICABLE FOR DIALYSIS PATIENTS. LIPID [id number] 06:09:00 Test Item Value Reference Range Comments TRIGLYCERIDES (BEAKER) (test bdrm=089) 89 mg/dL CHOLESTEROL (BEAKER) (test qxlo=275) 132 mg/dL HDL CHOLESTEROL (BEAKER) (test xhfs=593) 36 mg/dL LDL CHOLESTEROL CALCULATED (BEAKER) (test 78 mg/dL rzix=388) Triglyceride Reference Range: Low Risk <150 Borderline 150- 199 High Risk 200-499 Very High Risk >=500Cholesterol Reference Range: Low Risk <200 Borderline 200-239 High Risk > 240HDL Cholesterol Reference Range: Low Risk >=60 High Risk <40LDL Cholesterol Reference Range: Optimal <100 Near Optimal 100-129 Borderline 130-159 High 160-189 Very High >=190TSH/FREE T4 IF [id number] 05:58:00 Test Item Value Reference Range Comments THYROID STIMULATING HORMONE (BEAKER) (test 10.61 uIU/mL 0.35-4.94 vfzo=840) [id number] 05:44:00 Test Item Value Reference Range Comments D-DIMER QUANTITATIVE (BEAKER) (test enpu=011) < MG/L FEU <0.50 Intended Use: The [...] 95-100% range.CBC W/ PLT COUNT & AUTO [id number] 04:54:00 Test Item Value Reference Range Comments WHITE BLOOD CELL COUNT (BEAKER) (test ehup=328) 8.5 K/ L 3.5-10.5 RED BLOOD CELL COUNT (BEAKER) (test javg=369) 5.30 M/ L 4.63-6.08 HEMOGLOBIN (BEAKER) (test qqqp=369) 16.2 GM/DL 13.7-17.5 HEMATOCRIT (BEAKER) (test grla=212) 49.2 % 40.1-51.0 MEAN CORPUSCULAR VOLUME (BEAKER) (test nxbz=801) 92.8 fL 79.0-92.2 MEAN CORPUSCULAR HEMOGLOBIN (BEAKER) (test 30.6 pg 25.7-32.2 mfdp=333) MEAN CORPUSCULAR HEMOGLOBIN CONC (BEAKER) (test 32.9 GM/DL 32.3-36.5 aaqu=913) RED CELL DISTRIBUTION WIDTH (BEAKER) (test 13.2 % 11.6-14.4 adcv=156) PLATELET COUNT (BEAKER) (test wtmz=471) 205 K/CU MM 150-450 MEAN PLATELET VOLUME (BEAKER) (test calu=458) 13.1 fL 9.4-12.4 NUCLEATED RED BLOOD CELLS (BEAKER) (test 0 /100 WBC 0-0 ozsg=945) NEUTROPHILS RELATIVE PERCENT (BEAKER) (test 65 % famf=332) LYMPHOCYTES RELATIVE PERCENT (BEAKER) (test 27 % nsae=663) MONOCYTES RELATIVE PERCENT (BEAKER) (test 6 % xbcv=238) EOSINOPHILS RELATIVE PERCENT (BEAKER) (test 2 % moxu=896) BASOPHILS RELATIVE PERCENT (BEAKER) (test 0 % hqqz=386) NEUTROPHILS ABSOLUTE COUNT (BEAKER) (test 5.52 K/ L 1.78-5.38 utzo=768) LYMPHOCYTES ABSOLUTE COUNT (BEAKER) (test 2.28 K/ L 1.32-3.57 gtuu=938) MONOCYTES ABSOLUTE COUNT (BEAKER) (test 0.50 K/ L 0.30-0.82 ujqf=969) EOSINOPHILS ABSOLUTE COUNT (BEAKER) (test 0.17 K/ L 0.04-0.54 dhlk=618) BASOPHILS ABSOLUTE COUNT (BEAKER) (test 0.03 K/ L 0.01-0.08 abcx=722) IMMATURE GRANULOCYTES-RELATIVE PERCENT (BEAKER) 0 % 0-1 (test hwzp=5955) COMPREHENSIVE METABOLIC [id number] 18:11:00 Test Item Value Reference Range Comments TOTAL PROTEIN (BEAKER) 7.6 gm/dL 6.0-8.3 (test mkiq=672) ALBUMIN (BEAKER) (test 4.4 g/dL 3.5-5.0 nzji=0105) ALKALINE PHOSPHATASE 110 U/L 40-150 (BEAKER) (test xeof=023) BILIRUBIN TOTAL (BEAKER) 0.6 mg/dL 0.2-1.2 (test hout=519) SODIUM (BEAKER) (test 140 meq/L 136-145 tykj=821) POTASSIUM (BEAKER) (test 4.5 meq/L 3.5-5.1 sblg=002) CHLORIDE (BEAKER) (test 105 meq/L 98-107 ewyr=686) CO2 (BEAKER) (test 27 meq/L 22-29 wihl=617) BLOOD UREA NITROGEN 14 mg/dL 7-21 (BEAKER) (test pelt=626) CREATININE (BEAKER) (test 1.06 mg/dL 0.57-1.25 fzud=059) GLUCOSE RANDOM (BEAKER) 71 mg/dL 70-105 (test uuxo=024) CALCIUM (BEAKER) (test 9.7 mg/dL 8.4-10.2 rfbi=832) AST (SGOT) (BEAKER) (test 18 U/L 5-34 qecr=887) ALT (SGPT) (BEAKER) (test 17 U/L 6-55 dait=641) EGFR (BEAKER) (test 89 mL/min/1.73 sq m ESTIMATED GFR IS NOT uryb=3667) ACCURATE CREATININE CLEARANCE IN PREDICTING GLOMERULAR FILTRATION RATE. ESTIMATED GFR IS NOT APPLICABLE FOR DIALYSIS PATIENTS. [id number] 18:06:00 Test Item Value Reference Range Comments CORTISOL, TOTAL (BEAKER) (test axgr=6770) 11.6 ug/dL 3.7-19.4 [id number] 17:48:00 Test Item Value Reference Range Comments PHOSPHORUS (BEAKER) (test kjyi=033) 2.8 mg/dL 2.3-4.7 [id number] 17:48:00 Test Item Value Reference Range Comments MAGNESIUM (BEAKER) (test ahhz=975) 2.1 mg/dL 1.6-2.6 CBC W/PLT COUNT & AUTO [id number] 17:10:00 Test Item Value Reference Range Comments WHITE BLOOD CELL COUNT (BEAKER) (test desj=650) 9.0 K/ L 3.5-10.5 RED BLOOD CELL COUNT (BEAKER) (test nibk=206) 5.57 M/ L 4.63-6.08 HEMOGLOBIN (BEAKER) (test alzb=786) 17.4 GM/DL 13.7-17.5 HEMATOCRIT (BEAKER) (test tmyl=441) 53.2 % 40.1-51.0 MEAN CORPUSCULAR VOLUME (BEAKER) (test urrc=057) 95.5 fL 79.0-92.2 MEAN CORPUSCULAR HEMOGLOBIN (BEAKER) (test 31.2 pg 25.7-32.2 vtuw=496) MEAN CORPUSCULAR HEMOGLOBIN CONC (BEAKER) (test 32.7 GM/DL 32.3-36.5 uhrp=891) RED CELL DISTRIBUTION WIDTH (BEAKER) (test 13.5 % 11.6-14.4 hujy=913) PLATELET COUNT (BEAKER) (test orku=418) 220 K/CU MM 150-450 MEAN PLATELET VOLUME (BEAKER) (test ckmv=619) 13.0 fL 9.4-12.4 NUCLEATED RED BLOOD CELLS (BEAKER) (test 0 /100 WBC 0-0 zeug=913) NEUTROPHILS RELATIVE PERCENT (BEAKER) (test 76 % oezn=436) LYMPHOCYTES RELATIVE PERCENT (BEAKER) (test 16 % qmrp=603) MONOCYTES RELATIVE PERCENT (BEAKER) (test 7 % qvdj=918) EOSINOPHILS RELATIVE PERCENT (BEAKER) (test 1 % fiwp=813) BASOPHILS RELATIVE PERCENT (BEAKER) (test 0 % jyvv=410) NEUTROPHILS ABSOLUTE COUNT (BEAKER) (test 6.81 K/ L 1.78-5.38 cohl=142) LYMPHOCYTES ABSOLUTE COUNT (BEAKER) (test 1.47 K/ L 1.32-3.57 frnp=330) MONOCYTES ABSOLUTE COUNT (BEAKER) (test 0.59 K/ L 0.30-0.82 gbag=213) EOSINOPHILS ABSOLUTE COUNT (BEAKER) (test 0.10 K/ L 0.04-0.54 ljvm=885) BASOPHILS ABSOLUTE COUNT (BEAKER) (test 0.03 K/ L 0.01-0.08 svur=194) IMMATURE GRANULOCYTES-RELATIVE PERCENT (BEAKER) 0 % 0-1 (test zdkk=1836)
== END 2018-09-05 12:18 | disposition home or self-care (01) ==
LOC: ER 11:49
DX: Z48.02 Encounter for removal of sutures (principal)
CPT/HCPCS: 99281

== ENCOUNTER 2018-11-15 13:16 | Observation (INO) | payer OTHER ==
--- OUTSIDE RECORDS SUMMARY | 2018-11-15 13:19 | XMS REPORT ---
:1995 [facility] Address [address] [place] [address] Care Team Providers Name Role Phone EMMY CERVANTES Unavailable Unavailable Problems This patient has no known problems. Allergies, Adverse Reactions, Alerts This patient has no known allergies or adverse reactions. Medications This patient has no known medications. Results Test Description Test Time Test Comments Text Results Atomic Results Result Comments T4, FREE 2017-12-10 11:47:00 Test Item Value Reference Range Comments FREE T4 (BEAKER) (test laas=296) 1.09 ng/dL 0.70-1.48 HEMOGLOBIN [id number] 10:04:00 Test Item Value Reference Range Comments HEMOGLOBIN A1C (BEAKER) (test noxn=882) 6.2 % 4.3-6.1 CALCIUM, [id number] 07:52:00 Test Item Value Reference Range Comments CALCIUM IONIZED (BEAKER) (test kevt=003) 1.00 mmol/L 1.12-1.27 PH, BLOOD (BEAKER) (test nrta=7740) 7.35 [id number] 06:09:00 Test Item Value Reference Range Comments PHOSPHORUS (BEAKER) (test adfl=147) 3.4 mg/dL 2.3-4.7 [id number] 06:09:00 Test Item Value Reference Range Comments MAGNESIUM (BEAKER) (test qppl=155) 1.7 mg/dL 1.6-2.6 BASIC METABOLIC [id number] 06:09:00 Test Item Value Reference Range Comments SODIUM (BEAKER) (test 139 meq/L 136-145 nbmx=866) POTASSIUM (BEAKER) (test 3.6 meq/L 3.5-5.1 seej=020) CHLORIDE (BEAKER) (test 106 meq/L 98-107 sldn=093) CO2 (BEAKER) (test 24 meq/L 22-29 ezsc=767) BLOOD UREA NITROGEN 11 mg/dL 7-21 (BEAKER) (test vrur=814) CREATININE (BEAKER) (test 0.78 mg/dL 0.57-1.25 uoto=139) GLUCOSE RANDOM (BEAKER) 86 mg/dL 70-105 (test zggy=977) CALCIUM (BEAKER) (test 8.9 mg/dL 8.4-10.2 eeqo=260) EGFR (BEAKER) (test 127 mL/min/1.73 sq m ESTIMATED GFR IS NOT lddt=1386) ACCURATE CREATININE CLEARANCE IN PREDICTING GLOMERULAR FILTRATION RATE. ESTIMATED GFR IS NOT APPLICABLE FOR DIALYSIS PATIENTS. LIPID [id number] 06:09:00 Test Item Value Reference Range Comments TRIGLYCERIDES (BEAKER) (test rwlj=647) 89 mg/dL CHOLESTEROL (BEAKER) (test cbpe=738) 132 mg/dL HDL CHOLESTEROL (BEAKER) (test delz=016) 36 mg/dL LDL CHOLESTEROL CALCULATED (BEAKER) (test 78 mg/dL yrjq=987) Triglyceride Reference Range: Low Risk <150 Borderline 150- 199 High Risk 200-499 Very High Risk >=500Cholesterol Reference Range: Low Risk <200 Borderline 200-239 High Risk > 240HDL Cholesterol Reference Range: Low Risk >=60 High Risk <40LDL Cholesterol Reference Range: Optimal <100 Near Optimal 100-129 Borderline 130-159 High 160-189 Very High >=190TSH/FREE T4 IF [id number] 05:58:00 Test Item Value Reference Range Comments THYROID STIMULATING HORMONE (BEAKER) (test 10.61 uIU/mL 0.35-4.94 aguk=672) [id number] 05:44:00 Test Item Value Reference Range Comments D-DIMER QUANTITATIVE (BEAKER) (test tglq=739) < MG/L FEU <0.50 Intended Use: The [...] 95-100% range.CBC W/ PLT COUNT & AUTO [id number] 04:54:00 Test Item Value Reference Range Comments WHITE BLOOD CELL COUNT (BEAKER) (test lyoc=879) 8.5 K/ L 3.5-10.5 RED BLOOD CELL COUNT (BEAKER) (test were=911) 5.30 M/ L 4.63-6.08 HEMOGLOBIN (BEAKER) (test xvqo=269) 16.2 GM/DL 13.7-17.5 HEMATOCRIT (BEAKER) (test yerz=207) 49.2 % 40.1-51.0 MEAN CORPUSCULAR VOLUME (BEAKER) (test qwos=836) 92.8 fL 79.0-92.2 MEAN CORPUSCULAR HEMOGLOBIN (BEAKER) (test 30.6 pg 25.7-32.2 cuuo=808) MEAN CORPUSCULAR HEMOGLOBIN CONC (BEAKER) (test 32.9 GM/DL 32.3-36.5 lmrl=547) RED CELL DISTRIBUTION WIDTH (BEAKER) (test 13.2 % 11.6-14.4 cnbl=474) PLATELET COUNT (BEAKER) (test wsgf=902) 205 K/CU MM 150-450 MEAN PLATELET VOLUME (BEAKER) (test agpd=296) 13.1 fL 9.4-12.4 NUCLEATED RED BLOOD CELLS (BEAKER) (test 0 /100 WBC 0-0 thja=799) NEUTROPHILS RELATIVE PERCENT (BEAKER) (test 65 % xmtx=573) LYMPHOCYTES RELATIVE PERCENT (BEAKER) (test 27 % ifxv=926) MONOCYTES RELATIVE PERCENT (BEAKER) (test 6 % afzo=412) EOSINOPHILS RELATIVE PERCENT (BEAKER) (test 2 % twoq=596) BASOPHILS RELATIVE PERCENT (BEAKER) (test 0 % asxq=391) NEUTROPHILS ABSOLUTE COUNT (BEAKER) (test 5.52 K/ L 1.78-5.38 eokx=169) LYMPHOCYTES ABSOLUTE COUNT (BEAKER) (test 2.28 K/ L 1.32-3.57 dgfb=088) MONOCYTES ABSOLUTE COUNT (BEAKER) (test 0.50 K/ L 0.30-0.82 pjvz=920) EOSINOPHILS ABSOLUTE COUNT (BEAKER) (test 0.17 K/ L 0.04-0.54 tuhb=406) BASOPHILS ABSOLUTE COUNT (BEAKER) (test 0.03 K/ L 0.01-0.08 vgse=780) IMMATURE GRANULOCYTES-RELATIVE PERCENT (BEAKER) 0 % 0-1 (test qxqu=4300) COMPREHENSIVE METABOLIC [id number] 18:11:00 Test Item Value Reference Range Comments TOTAL PROTEIN (BEAKER) 7.6 gm/dL 6.0-8.3 (test qwvq=630) ALBUMIN (BEAKER) (test 4.4 g/dL 3.5-5.0 cqzj=6548) ALKALINE PHOSPHATASE 110 U/L 40-150 (BEAKER) (test eblc=638) BILIRUBIN TOTAL (BEAKER) 0.6 mg/dL 0.2-1.2 (test tvjl=587) SODIUM (BEAKER) (test 140 meq/L 136-145 smih=764) POTASSIUM (BEAKER) (test 4.5 meq/L 3.5-5.1 nbiw=444) CHLORIDE (BEAKER) (test 105 meq/L 98-107 wmzl=653) CO2 (BEAKER) (test 27 meq/L 22-29 yuwf=529) BLOOD UREA NITROGEN 14 mg/dL 7-21 (BEAKER) (test dhwd=904) CREATININE (BEAKER) (test 1.06 mg/dL 0.57-1.25 gspf=259) GLUCOSE RANDOM (BEAKER) 71 mg/dL 70-105 (test poab=594) CALCIUM (BEAKER) (test 9.7 mg/dL 8.4-10.2 vova=602) AST (SGOT) (BEAKER) (test 18 U/L 5-34 wlal=777) ALT (SGPT) (BEAKER) (test 17 U/L 6-55 rzss=315) EGFR (BEAKER) (test 89 mL/min/1.73 sq m ESTIMATED GFR IS NOT ysuf=5658) ACCURATE CREATININE CLEARANCE IN PREDICTING GLOMERULAR FILTRATION RATE. ESTIMATED GFR IS NOT APPLICABLE FOR DIALYSIS PATIENTS. [id number] 18:06:00 Test Item Value Reference Range Comments CORTISOL, TOTAL (BEAKER) (test wusg=8849) 11.6 ug/dL 3.7-19.4 [id number] 17:48:00 Test Item Value Reference Range Comments PHOSPHORUS (BEAKER) (test slpd=755) 2.8 mg/dL 2.3-4.7 [id number] 17:48:00 Test Item Value Reference Range Comments MAGNESIUM (BEAKER) (test hwws=970) 2.1 mg/dL 1.6-2.6 CBC W/PLT COUNT & AUTO [id number] 17:10:00 Test Item Value Reference Range Comments WHITE BLOOD CELL COUNT (BEAKER) (test ojpl=763) 9.0 K/ L 3.5-10.5 RED BLOOD CELL COUNT (BEAKER) (test wxng=430) 5.57 M/ L 4.63-6.08 HEMOGLOBIN (BEAKER) (test bhlx=240) 17.4 GM/DL 13.7-17.5 HEMATOCRIT (BEAKER) (test hqmb=722) 53.2 % 40.1-51.0 MEAN CORPUSCULAR VOLUME (BEAKER) (test lwbi=964) 95.5 fL 79.0-92.2 MEAN CORPUSCULAR HEMOGLOBIN (BEAKER) (test 31.2 pg 25.7-32.2 wdav=086) MEAN CORPUSCULAR HEMOGLOBIN CONC (BEAKER) (test 32.7 GM/DL 32.3-36.5 qaxy=424) RED CELL DISTRIBUTION WIDTH (BEAKER) (test 13.5 % 11.6-14.4 uyjz=036) PLATELET COUNT (BEAKER) (test sghz=287) 220 K/CU MM 150-450 MEAN PLATELET VOLUME (BEAKER) (test bgeh=361) 13.0 fL 9.4-12.4 NUCLEATED RED BLOOD CELLS (BEAKER) (test 0 /100 WBC 0-0 vglm=070) NEUTROPHILS RELATIVE PERCENT (BEAKER) (test 76 % ehte=091) LYMPHOCYTES RELATIVE PERCENT (BEAKER) (test 16 % odhr=230) MONOCYTES RELATIVE PERCENT (BEAKER) (test 7 % ajdc=975) EOSINOPHILS RELATIVE PERCENT (BEAKER) (test 1 % ykii=050) BASOPHILS RELATIVE PERCENT (BEAKER) (test 0 % qynb=282) NEUTROPHILS ABSOLUTE COUNT (BEAKER) (test 6.81 K/ L 1.78-5.38 zyia=822) LYMPHOCYTES ABSOLUTE COUNT (BEAKER) (test 1.47 K/ L 1.32-3.57 trhk=760) MONOCYTES ABSOLUTE COUNT (BEAKER) (test 0.59 K/ L 0.30-0.82 igza=791) EOSINOPHILS ABSOLUTE COUNT (BEAKER) (test 0.10 K/ L 0.04-0.54 smgd=103) BASOPHILS ABSOLUTE COUNT (BEAKER) (test 0.03 K/ L 0.01-0.08 fmbj=257) IMMATURE GRANULOCYTES-RELATIVE PERCENT (BEAKER) 0 % 0-1 (test pjny=7515)
--- OUTSIDE RECORDS SUMMARY | 2018-11-15 13:19 | XMS REPORT | Clinical Summary ---
:1995 Author Organization [facility] Address [address] [place] [address] Care Team Providers Name Role Phone Kaci Tatum MD Primary Care Provider Allergies Active Allergy Reactions Severity Noted Date Comments Ibuprofen Swelling High 12/09/2017 Throat swells Medications Medication Sig Dispensed Refills Start Date End Date Status metoprolol [...] mg zolpidem (AMBIEN) Take 10 mg by 0 Active 10 mg tablet mouth every night as needed for Insomnia. aspirin 81 MG EC Take 81 mg by 0 12/09/2017 Discontinued tablet mouth daily. traMADol (ULTRAM) Take 50 mg by 0 12/22/2017 Discontinued 50 mg tablet mouth every 6 (six) hours as needed for Pain. ranitidine (ZANTAC) Take 75 mg by 0 12/10/2017 Discontinued 75 MG tablet mouth 2 [...] Kaci Tatum MD 02/16/2018 Office Visit Family Medicine Kaci Tatum, Depression with anxiety (Primary Dx) 01/12/2018 Office Visit Family Kaci Aguirre, Testing for genetic MD disease carrier status (Primary Dx) 12/22/2017 Office Visit Family Kaci Aguirre, Atypical chest pain (Primary Dx); Anxiety 12/09/2017 - Hospital Encounter Cardiology Kannan Briceño, Syncope, 12/10/2017 unspecified syncope art Newton MD 12/09/2017 Orders Only General Internal Medicine after 11/14/2017 Immunizations Name Dates Previously Given Next Due Influenza Three-TIV PF 5+ YR 12/10/2017 Pneumococcal Polysaccharide (Pneumovax) 12/10/2017 Family History Medical History Relation Name Comments Hypertension Maternal Grandfather Relation Name Status Comments Maternal Grandfather Alive Social History Tobacco Use Types Packs/Day Years Used Date Never Smoker Smokeless Tobacco: Current User Alcohol Use Drinks/Week oz/Week Comments Yes Sex Assigned at Date Recorded Not on file Job Start Date Occupation Industry Not on file Not on file Not on file Travel History Travel Start Travel End No recent travel history available. Last Filed Vital Signs Vital Sign Reading Time Taken Blood Pressure 129/74 02/16/2018 2:16 PM CDT Pulse 93 02/16/2018 2:16 PM CDT Temperature 36.3 C (97.4 F) 02/16/2018 2:16 PM CDT Respiratory Rate 18 12/10/2017 3:00 PM [employer] Oxygen Saturation 93% 02/16/2018 2:16 PM CDT Inhaled Oxygen Concentration - - Weight 61.7 kg (136 lb) 02/16/2018 2:16 PM CDT Height 172.7 cm (5' 8") 02/16/2018 2:16 PM CDT Body Mass Index 20.68 02/16/2018 2:16 PM CDT Plan of Treatment Health Maintenance Due Date Last Done Comments INFLUENZA VACCINE 08/21/2018 12/10/2017 Procedures Procedure Name Priority Date/Time Associated Comments Diagnosis CYSTIC FIBROSIS GENE Routine 01/14/2018 8:52 Testing for Results for this TEST AM [employer] genetic disease procedure are in carrier status the results section. RHYTHM STRIP - SCAN 12/27/2017 10:00 AM [employer] RHYTHM STRIP - SCAN 12/13/2017 11:12 AM [employer] ECHOCARDIOGRAM REPORT - 12/10/2017 1:50 SCAN PM [employer] CBC W/PLT COUNT & AUTO Routine 12/10/2017 4:18 Results for this DIFFERENTIAL AM [employer] procedure are in the results section. T4, FREE Routine 12/10/2017 4:18 Results for this AM [employer] procedure are in the results section. D-DIMER Routine 12/10/2017 4:18 Results for this AM [employer] procedure are in the results section. TSH/FREE T4 IF Routine 12/10/2017 4:18 Results for this INDICATED AM [employer] procedure are in the results section. CBC W/PLT COUNT & AUTO Routine 12/10/2017 4:18 Results for this DIFFERENTIAL AM [employer] procedure are in the results section. CALCIUM, IONIZED Routine 12/10/2017 4:18 Results for this AM [employer] procedure are in the results section. BASIC METABOLIC PANEL Routine 12/10/2017 4:18 Results for this (7) AM [employer] procedure are in the results section. PHOSPHORUS Routine 12/10/2017 4:18 Results for this AM [employer] procedure are in the results section. MAGNESIUM Routine 12/10/2017 4:18 Results for this AM [employer] procedure are in the results section. LIPID PANEL Routine 12/10/2017 4:18 Results for this AM [employer] procedure are in the results section. HEMOGLOBIN A1C Routine 12/10/2017 4:18 Results for this AM [employer] procedure are in the results section. 2D ECHO W/ DOPPLER STAT 12/09/2017 5:01 Results for this (CW/PW/COLOR) PM [employer] procedure are in the results section. ECG 12-LEAD Routine 12/09/2017 4:51 Results for this PM [employer] procedure are in the results section. CBC W/PLT COUNT & AUTO Routine 12/09/2017 4:40 Results for this DIFFERENTIAL PM [employer] procedure are in the results section. CORTISOL Routine 12/09/2017 4:40 Results for this PM [employer] procedure are in the results section. PHOSPHORUS Routine 12/09/2017 4:40 Results for this PM [employer] procedure are in the results section. MAGNESIUM Routine 12/09/2017 4:40 Results for this PM [employer] procedure are in the results section. COMPREHENSIVE METABOLIC Routine 12/09/2017 4:40 Results for this PANEL PM [employer] procedure are in the results section. CBC W/PLT COUNT & AUTO Routine 12/09/2017 4:40 Results for this DIFFERENTIAL PM [employer] procedure are in the results section. after 11/14/2017 Results Cystic fibrosis gene test (01/14/2018 8:52 AM [employer]) , Screen CommentComment: Molecular analysis report has been [facility] mailed. Comment: Comment [facility] Comment: The assay provides information intended to [...] medically established diagnostic product or procedure. Specimen Blood Narrative Performed At Performed at:01 - [facility] [address], [id number] Tube Builder: Min Leary MD, Phone:[phone] Performing Organization Address City/State/Zipcode Phone Number [facility] RHYTHM STRIP - SCAN (12/27/2017 10:00 AM [facility] [employer] [employer])Only the most recent of2 resultswithin the time period is included. Narrative Performed At ECHOCARDIOGRAM REPORT - SCAN (12/10/2017 1:50 PM [employer]) Narrative Performed At TSH/Free T4 If Indicated (12/10/2017 4:18 AM [employer]) TSH 10.61 (H) 0.35 - 4.94 uIU/mL [facility] Specimen Blood - Arm, Left Performing Organization Address [facility]/Zipcode Phone Number [facility] [address] [place] [phone] CENTER Calcium, Ionized (12/10/2017 4:18 AM [employer]) Calcium, Ion 1.00 (L) 1.12 - 1.27 mmol/L [facility] pH, Blood 7.35 [facility] Specimen Blood - Arm, Left Performing Organization Address City/[facility]/Zipcode Phone Number [address] [address] [place] CBC with platelet count + automated diff (12/10/2017 4:18 AM [employer])Only the most recent of2 resultswithin the time period is included. WBC 8.5 3.5 - 10.5 K/L [facility] RBC 5.30 4.63 - 6.08 M/L [facility] Hemoglobin 16.2 13.7 - 17.5 GM/DL [facility] Hematocrit 49.2 40.1 - 51.0 % [facility] MCV 92.8 (H) 79.0 - 92.2 fL [facility] MCH 30.6 25.7 - 32.2 pg [facility] MCHC 32.9 32.3 - 36.5 GM/DL [facility] RDW 13.2 11.6 - 14.4 % [facility] Platelets 205 150 - 450 K/CU MM [facility] MPV 13.1 (H) 9.4 - 12.4 fL [facility] nRBC 0 0 - 0 /100 WBC [facility] % Neutros 65 % [facility] % Lymphs 27 % [facility] % Monos 6 % [facility] % Eos 2 % [facility] % Baso 0 % [facility] # Neutros 5.52 (H) 1.78 - 5.38 K/L [facility] # Lymphs 2.28 1.32 - 3.57 K/L [facility] # Monos 0.50 0.30 - 0.82 K/L [facility] # Eos 0.17 0.04 - 0.54 K/L [facility] # Baso 0.03 0.01 - 0.08 K/L [facility] Immature Granulocytes-Relative 0 0 - 1 % [facility] Specimen Blood - Arm, Left Performing Organization Address City[facility] Phone Number [address] [phone] CENTER D-dimer (12/10/2017 4:18 AM [employer]) D-Dimer, Quant <0.27 <0.50 MG/L FEU [facility] Specimen Blood - Arm, Left Narrative Performed At [facility] Intended Use: The D-Dimer Assay can be used to aid in the diagnosis of Deep Vein Thrombosis (DVT) and Pulmonary Embolism Disease (PED). In patients with low pre-test probability, various studies concerning STA Liatest D-dimer test have reported that with a cutoff value of 0.50 MG/L FEU, the Negative Predictive Value (NPV) regarding the exclusion of thrombosis is within 95-100% range. Performing Organization Address [facility] Phone Number [address] [phone] CENTER T4, free (12/10/2017 4:18 AM [employer]) Free T4 1.09 0.70 - 1.48 ng/dL [facility] Specimen Blood - Arm, Left Performing Organization Address [facility]/Zipcode Phone Number [address] [address] CENTER Phosphorus (12/10/2017 4:18 AM [employer])Only the most recent of2 resultswithin the time period is included. Phosphorus 3.4 2.3 - 4.7 mg/dL [facility] Specimen Blood - Arm, Left Performing Organization Address [facility] Phone Number [address] [address] CENTER Magnesium (12/10/2017 4:18 AM [employer])Only the most recent of2 resultswithin the time period is included. Magnesium 1.7 1.6 - 2.6 mg/dL [facility] Specimen Blood - Arm, Left Performing Organization Address [facility] Phone Number [address] [address] [phone] CENTER Hemoglobin A1c (12/10/2017 4:18 AM [employer]) Hemoglobin A1C 6.2 (H) 4.3 - 6.1 % [facility] Specimen Blood - Arm, Left Performing Organization Address [facility] Phone Number [address] [address] [phone] CENTER Lipid panel (12/10/2017 4:18 AM [employer]) Triglycerides 89 mg/dL [facility] Cholesterol 132 mg/dL [facility] HDL 36 mg/dL [facility] LDL Calculated 78 mg/dL [facility] Specimen Blood - Arm, Left Narrative Performed At [facility] Triglyceride Reference Range: Low Risk <150 [id number] High Risk 200-499 Very High Risk>=500 Cholesterol Reference Range: Low Risk <200 [id number] High Risk>240 HDL Cholesterol Reference Range: Low Risk >=60 High Risk <40 LDL Cholesterol Reference Range: Optimal<100 Near [id number] [id number] Onsy801-354 Very High >=190 Performing Organization Address [facility] Phone Number [facility] [address] [place], [place] [phone] [place] Basic Metabolic Panel (12/10/2017 4:18 AM [employer]) Sodium 139 136 - 145 meq/L [facility] Potassium 3.6 3.5 - 5.1 meq/L [facility] Chloride 106 98 - 107 meq/L [facility] CO2 24 22 - 29 meq/L [facility] BUN 11 7 - 21 mg/dL [facility] Creatinine 0.78 0.57 - 1.25 mg/dL [facility] Glucose 86 70 - 105 mg/dL [facility] Calcium 8.9 8.4 - 10.2 mg/dL [facility] EGFR 127Comment: ESTIMATED GFR IS mL/min/1.73 sq m [facility] NOT ACCURATE CREATININE [facility] CENTER CLEARANCE IN PREDICTING GLOMERULAR FILTRATION RATE. ESTIMATED GFR IS NOT APPLICABLE FOR DIALYSIS PATIENTS. Specimen Blood - Arm, Left Performing Organization Address [facility] Phone Number [address] [address] [place] 2D Echo W/Doppler(CW/PW/Color) (12/09/2017 5:01 PM [facility]) Ejection Fraction [facility] [email or web address] CPA Narrative Performed At Transthoracic Echocardiography Report (TTE) [facility] [employer] Demographics Patient NameKhoi LO of Study12/09/2017 Male Visit [id number] Unknown Room [id number] Number Date of 1995Referring PhysicianAman Brunner MD 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 Double in let left ventricle with ventricular inversion (l eft sided RV, right sided LV) No rmal wall thickness. Th e left ventricle is moderately dilated (6.4 cm LV SHREYA) No rmal systolic function, shortening fraction ~31%, Al l segments contract normally. Th e visual ejection fraction was estimated 55-60% %. No rmal diastolic function. Left AtriumLA size is normal . Right VentricleThe RV appears hypoplastic and is left sided Right Atrium RA cavity size appears normal . A circular structure posterior to the RA is likely an extracardiac conduit Fontan - no fenestration is vi sualized by color Doppler. Atrial SeptumThe atrial communication appears widely patent (a bsence of septum consistent with septectomy from No rwood procedure). Aortic Valve Mild aortic regurgitation. No rmal AoV structure. Suspect that this may be a ne o-aorta recreated from a pulmonary valve annulus if Felicity procedure performed. Mitral Valve Normal MV structure. Mi ld mitral regurgitation. Tricuspid ValveTV structure is normal. Mi ld tricuspid regurgitation. In complete jet to estimate systemic pressure. Pulmonic Valve PV is not well visualized. Mild pulmonary in sufficiency. Th ere is likely a second outflow consistent with a Da vfg-Droy-Tgbbdtp procedure where 2 semilunar ou tflows have systemic anastomosis AortaAortic root size (SInus of Valsalva diameter) is no rmal . PericardiumNo pericardial effusion is visualized. IVC/SVC/PA/PV/PleuralThe right upper pulmonary vein (RUPV) is normal . Th e estimated RA pressure by IVC dynamics 11-15 mm Hg . 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 Mitral Valve Normal MV structure. Mild mitral regurgitation. Tricuspid Valve TV structure is normal. Mild tricuspid regurgitation. Incomplete jet to estimate systemic pressure. Pulmonic Valve PV is not well visualized. Mild pulmonary insufficiency. There is likely a second outflow consistent with a Ejews-Gemq-Jvpoiow procedure where 2 semilunar outflows have systemic [...] Velocity: 3.38 m/s TR Gradient: 45.76 mmHg Performing Organization Address [facility] Phone Number [facility]ON CPACS ECG 12 lead (12/09/2017 4:51 PM [employer]) Narrative Performed At Ventricular Rate 69 BPM GE MUSE Atrial Rate 69 BPM P-R Interval 134 ms QRS Duration 94 ms Q-T Interval 432 ms QTC Calculation(Bazett) 462 ms P [place] 95 degrees R [place] 116 degrees T [place] 106 degrees Electronic atrial pacemaker Right axis deviation Possible Right ventricular hypertrophy Nonspecific ST abnormality T wave inversion in I and aVL Abnormal ECG No previous ECGs available Confirmed by MD WARD YOCHAI ([id number]) on 12/12/2017 6:27:19 AM Procedure Note Interface, External Ris In - 12/12/2017 6:27 AM [employer] Ventricular Rate 69 BPM Atrial Rate 69 BPM P-R Interval 134 ms QRS Duration 94 ms Q-T Interval 432 ms QTC Calculation(Bazett) 462 ms P [place] 95 degrees R [place] 116 degrees T [place] 106 degrees Electronic atrial pacemaker Right axis deviation Possible Right ventricular hypertrophy Nonspecific ST abnormality T wave inversion in I and aVL Abnormal ECG No previous ECGs available Confirmed by MD WARD YOCHAI ([id number]) on 12/12/2017 6:27:19 AM Performing Organization Address [facility] Phone Number [employer] MUSE Cortisol (12/09/2017 4:40 PM [employer]) Cortisol, Total 11.6 3.7 - 19.4 ug/dL [facility] Specimen Blood Performing Organization Address [facility] Phone Number [address] [address] CENTER Comprehensive metabolic panel (12/09/2017 4:40 PM [employer]) Protein, Total 7.6 6.0 - 8.3 gm/dL [facility] Albumin 4.4 3.5 - 5.0 g/dL [facility] Alkaline Phosphatase 110 40 - 150 U/L [facility] Total Bilirubin 0.6 0.2 - 1.2 mg/dL [facility] Sodium 140 136 - 145 meq/L [facility] Potassium 4.5 3.5 - 5.1 meq/L [facility] Chloride 105 98 - 107 meq/L [facility] CO2 27 22 - 29 meq/L [facility] BUN 14 7 - 21 mg/dL [facility] Creatinine 1.06 0.57 - 1.25 mg/dL [facility] Glucose 71 70 - 105 mg/dL [facility] Calcium 9.7 8.4 - 10.2 mg/dL [facility] AST 18 5 - 34 U/L [facility] ALT 17 6 - 55 U/L [facility] EGFR 89Comment: ESTIMATED GFR mL/min/1.73 sq m [facility] IS NOT ACCURATE [facility] CREATININE CLEARANCE IN PREDICTING GLOMERULAR FILTRATION RATE. ESTIMATED GFR IS NOT APPLICABLE FOR DIALYSIS PATIENTS. Specimen Blood Performing Organization Address City/State/Zipcode Phone Number [facility] [address] [place] [address] CENTER after 11/14/2017 Insurance Payer Benefit Plan / Subscriber ID Type Phone Address Group MEDICAID - MEDICAID MEDICAID [facility] xxxxxxxxx Medicaid Contracted MGD CARE Advance Directives For more information, please contact:[address] [phone] Code Status Date Activated Date Inactivated Comments Full Code 12/09/2017 4:00 PM 12/10/2017 6:48 PM This code status was determined by: Patient
[2018-11-15 14:01] LABS: Absolute Monocytes 0.6 K/uL (0.1-1.3); Absolute Neutrophil 5.7 K/uL (1.8-8.0); Basophils % 0.7 % (0-1.3); Eosinophils % 1.5 % (0-4.4); Hematocrit 53.8 % (39.6-49.0); Lymphocytes % 23.5 % (15.3-44.8); MPV 12.4 fL (7.6-11.3); Monocytes % 7.2 % (3.3-12.3); RBC Red Blood Cell Count 5.63 M/uL (4.33-5.43)
[2018-11-15] MEDS ORDERED: FENTANYL CITR 100 MCG/2 ML ONE (14:06)
[2018-11-15] MEDS ORDERED: PANTOPRAZOLE 40 MG INJ ONE (14:07)
[2018-11-15 14:09] LABS: Protime INR 1.14
[2018-11-15 14:20] LABS: ALT/SGPT 22 U/L (12-78); AST/SGOT 16 U/L (15-37); Albumin 4.6 g/dL (3.4-5.0); Alkaline Phosphatase 83 U/L (45-117); BUN Blood Urea Nitrogen 15 mg/dL (7-18); Bicarbonate 24 mmol/L (21-32); Bilirubin Direct 0.3 mg/dL (0-0.2); Glucose Level 96 mg/dL (74-106); Magnesium 2.2 mg/dL (1.8-2.4); NT PRO-BNP 72 pg/mL (<125); Potassium 4.1 mmol/L (3.5-5.1); Protein, Total 7.5 g/dL (6.4-8.2); Sodium Level 140 mmol/L (136-145); Troponin (Emerg Dept Use Only) < 0.02 ng/mL (0.0-0.045)
--- NOTE | 2018-11-15 14:33 | RAD REPORT ---
EXAM DESCRIPTION: RAD - Chest Single View - 11/15/2018 2:21 pm CLINICAL HISTORY: CHEST PAIN Chest pain. COMPARISON: Chest Single View dated 08/22/2018 FINDINGS: Portable technique limits examination quality. The lungs are grossly clear. Dual lead pacer device is noted. Sternotomy wires are present. No displa antonia fractures. IMPRESSION: No acute intrathoracic process suspected.
--- NOTE | 2018-11-15 14:35 | EKG ---
Test Date: 2018-11-15 Test Time: 13:24:08 Yarn Finisher: SANA MEASUREMENT RESULTS: Intervals: Rate: 73 IL: 112 QRSD: 94 QT: 406 QTc: 447 [place]: P: 55 IL: 112 QRS: 115 T: 96 INTERPRETIVE STATEMENTS: Sinus rhythm with fusion complexes Right axis deviation Possible Right ventricular hypertrophy Nonspecific ST and T wave abnormality Abnormal ECG Compared to ECG 08/22/2018 22:50:50 Fusion complex(es) now present Sinus tachycardia no longer present ST (T wave) deviation still present Electronically Signed On 11-15-18 14:35:16 DRYING SUPERVISOR by Cornelius Womack
[2018-11-15] MEDS ORDERED: CLOPIDOGREL 75 MG TABLET ONE (17:54)
--- NOTE | 2018-11-15 17:56 | ER ---
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 Transition of care: patient was not received from another setting of care. Onset of symptoms was November 15, 2018. Risk Assessment: Do you want to hurt yourself or someone else? Patient reports no desire to harm self or others. Initial Sepsis Screen: Does the patient meet any 2 criteria? No. Patient's initial sepsis screen is negative. Does the patient have a suspected source of infection? No. Patient's initial sepsis screen is negative. Care prior to arrival: None. 13:24 Method Of Arrival: Wheelchair iw 13:24 Acuity: NIKOLE 2 iw Triage Assessment: 13:35 General: Appears uncomfortable, Behavior is cooperative, anxious, crying, restless. aj1 Pain: Pain currently is 10 out of 10 on a pain scale. Historical: - Allergies: 13:34 Ibuprofen; aj1 - PMHx: 13:34 congenital heart diseas; Hypertension; non epileptic seizures; Pacemaker; aj1 - Immunization history:: Flu vaccine is not up to date. - Social history:: Smoking status: Patient/guardian denies using tobacco. - Ebola Screening: : No symptoms or risks identified at this time. Screenin:29 Abuse screen: Denies threats or abuse. Denies injuries from another. Nutritional aj1 screening: No deficits noted. Tuberculosis screening: No symptoms or risk factors identified. 20:41 Fall Risk None identified. aj1 Assessment: 13:29 General: Appears in no apparent distress. uncomfortable, Behavior is cooperative, aj1 anxious, crying, restless. Pain: Complains of pain in anterior aspect of left upper chest and left breast Pain radiates to left upper quadrant Pain currently is 10 out of 10 on a pain scale. Quality of pain is described as squeezing, shocking Pain began 10 minutes AUTO TESTER Is intermittent. Neuro: Level of Consciousness is awake, alert, obeys commands, Oriented to person, place, time, situation. Cardiovascular: Reports chest pain, nausea, vomiting, Denies palpitations, shortness of breath, Heart tones S1 S2 present Patient's skin is warm and dry. Rhythm is paced. Respiratory: Airway is patent Respiratory effort is even, unlabored, Respiratory pattern is regular, symmetrical. GI: No signs and/or symptoms were reported involving the gastrointestinal system. : No signs and/or symptoms were reported regarding the genitourinary system. EENT: No signs and/or symptoms were reported regarding the EENT system. Derm: No signs and/or symptoms reported regarding the dermatologic system. Skin is pink, warm \\T\\ dry. normal. Musculoskeletal: No signs and/or symptoms reported regarding the musculoskeletal system. Circulation, motion, and sensation intact. 14:23 Reassessment: Patient appears in no apparent distress at this time. Patient and/or aj1 family updated on plan of care and expected duration. Pain level reassessed. Patient is alert, oriented x 3, equal unlabored respirations, skin warm/dry/pink. Patient states that his pain has gotten better, appears comfortable, calm. 15:40 Reassessment: Patient appears in no apparent distress at this time. No changes from aj1 previously documented assessment. Patient and/or family updated on plan of care and expected duration. Pain level reassessed. Patient is alert, oriented x 3, equal unlabored respirations, skin warm/dry/pink. 16:40 Reassessment: Patient and/or family updated on plan of care and expected duration. Pain aj1 level reassessed. General: Appears in no apparent distress. comfortable, Behavior is calm, cooperative, appropriate for age. Pain: Denies pain. Neuro: Level of Consciousness is awake, alert, obeys commands, Oriented to person, place, time, situation. Cardiovascular: Patient's skin is warm and dry. Rhythm is paced. Respiratory: Airway is patent Respiratory effort is even, unlabored, Respiratory pattern is regular, symmetrical. GI: No signs and/or symptoms were reported involving the gastrointestinal system. : No signs and/or symptoms were reported regarding the genitourinary system. EENT: No signs and/or symptoms were reported regarding the EENT system. Derm: No signs and/or symptoms reported regarding the dermatologic system. Skin is pink, warm \\T\\ dry. normal. 17:37 Reassessment: Patient appears in no apparent distress at this time. No changes from aj1 previously documented assessment. Patient and/or family updated on plan of care and expected duration. Pain level reassessed. Patient is alert, oriented x 3, equal unlabored respirations, skin warm/dry/pink. 18:26 Reassessment: Patient appears in no apparent distress at this time. No changes from aj1 previously documented assessment. Patient and/or family updated on plan of care and expected duration. Pain level reassessed. Patient is alert, oriented x 3, equal unlabored respirations, skin warm/dry/pink. 19:25 Reassessment: Patient and/or family updated on plan of care and expected duration. Pain aj1 level reassessed. General: Appears in no apparent distress. comfortable, Behavior is calm, cooperative, appropriate for age. Pain: Denies pain. Neuro: Level of Consciousness is awake, alert, obeys commands, Oriented to person, place, time, situation. Cardiovascular: Patient's skin is warm and dry. Cardiovascular: Rhythm is paced. Respiratory: Airway is patent Respiratory effort is even, unlabored, Respiratory pattern is regular, symmetrical. 19:25 Derm: Skin is pink, warm \\T\\ dry. normal. Musculoskeletal: Circulation, motion, and aj1 sensation intact. 19:49 Reassessment: Attempted to call report, receiving nurse is unable to receive report at aj this time, will call back. 20:41 Reassessment: Patient appears in no apparent distress at this time. No changes from aj1 previously documented assessment. Patient and/or family updated on plan of care and expected duration. Pain level reassessed. Patient is alert, oriented x 3, equal unlabored respirations, skin warm/dry/pink. Vital Signs: 13:31 Pulse 65; Resp 18 S; Pulse Ox 95% on R/A; Weight 65.77 kg; Height 5 ft. 9 in. (175.26 iw cm); Pain 10/10; 13:37 BP 112 / 79; Temp 98.8; aj1 14:24 BP 127 / 81; Pulse 65; Resp 18; Pulse Ox 95% on R/A; aj1 15:40 BP 101 / 69; Pulse 63; Resp 16; Pulse Ox 94% on R/A; aj1 16:40 BP 127 / 77; Pulse 72; Resp 18; Pulse Ox 95% on R/A; aj1 17:39 BP 109 / 75; Pulse 63; Resp 15; Pulse Ox 94% on R/A; aj1 18:27 BP 107 / 69; Pulse 69; Resp 19; Pulse Ox 95% on R/A; aj1 19:35 BP 116 / 75; Pulse 72; Resp 15; Pulse Ox 94% on R/A; aj1 13:31 Body Mass Index 21.41 (65.77 kg, 175.26 cm) iw ED Course: 13:20 Patient arrived in ED. mr 13:26 Alexandra Abdi, RN is Primary Nurse. aj1 13:27 Triage completed. iw 13:29 No provider procedures requiring assistance completed. Inserted saline lock: 18 gauge aj1 in right antecubital area, using aseptic technique. Blood collected. Patient maintains SpO2 saturation greater than 95% on room air. 13:29 Patient has correct armband on for positive identification. air sampling and monitoring on. Pulse aj1 ox on. NIBP on. 13:30 EKG done, by neurodiagnostic tech. reviewed by Nba Maguire MD. sm3 13:35 Javad Sykes PA is PHCP. cp 13:35 Nba Maguire MD is Attending Physician. cp 13:38 Arm band placed on Patient placed in an exam room, Patient triaged in bed 5. aj1 14:19 X-ray completed. Portable x-ray completed in exam room. Patient tolerated procedure ag1 well. 14:23 XRAY Chest (1 view) In Process Unspecified. EDMS 14:52 REPEAT EKG WAS DONE. sm3 17:20 Repeat lab(s) drawn. by me, sent to lab. 3 17:44 EKG done, by neurodiagnostic tech. reviewed by Javad LOPES. sm3 17:55 Yosi Waters DO is Hospitalizing Provider. cp 20:41 Patient admitted, IV remains in place. aj1 Administered Medications: 14:05 Drug: fentaNYL (PF) 25 mcg Route: IVP; Site: right antecubital; la1 17:20 Follow up: Response: No adverse reaction; Pain is decreased la1 14:05 Drug: ProTONIX 40 mg Route: IVP; Site: right antecubital; la1 17:21 Follow up: Response: No adverse reaction la1 17:56 Drug: PlaVIX 300 mg Route: PO; aj1 18:30 Follow up: Response: No adverse reaction aj1 Outcome: 17:55 Decision to Hospitalize by Provider. cp 20:42 Admitted to Tele accompanied by nurse, via wheelchair, with chart, Report called to ajAkira Willingham RN 20:42 Condition: stable 20:42 Discharge instructions given to patient, Instructed on the need for admit, Demonstrated understanding of instructions. 20:43 Patient left the ED. aj1 Signatures: Dispatcher [employer] EDAlexandra Cordoba RN RN aj1 Lim, Angela De Jesus, Debora, RN DEEPIKA iw Kun Bell RN RN la1 Melissa Peraza1 Javad Sykes PA PA Annie Quinones 3 Gia Daily 3 Corrections: (The following items were deleted from the chart) 14:25 14:23 Reassessment: Patient appears in no apparent distress at this time. No changes aj1 from previously documented assessment. Patient and/or family updated on plan of care and expected duration. Pain level reassessed. Patient is alert, oriented x 3, equal unlabored respirations, skin warm/dry/pink. aj1
--- NOTE | 2018-11-15 17:56 | EDPHYS ---
Physician Documentation [facility] Name: Chace Silva Age: 23 yrs Sex: Male : 1995 Arrival Date: 11/15/2018 Time: 13:20 Bed 5 Private MD: ED Physician Nba Maguire HPI: 11/15 13:44 This 23 yrs old Male presents to ER via Wheelchair with complaints of Chest cp Pain. 13:45 The patient or guardian reports chest pain that is located primarily in the anterior cp chest wall, left. 13:45 The pain does not radiate. Associated signs and symptoms: Pertinent negatives: cp abdominal pain, cough, diaphoresis, lower extremity pain, lower extremity swelling, recent travel, shortness of breath, syncope. The chest pain is described as sharp. Duration: The patient or guardian reports a single episode, that is still ongoing, and unchanged. Modifying factors: The symptoms are alleviated by nothing. Historical: - Allergies: 13:34 Ibuprofen; aj1 - PMHx: 13:34 congenital heart diseas; Hypertension; non epileptic seizures; Pacemaker; aj1 - Immunization history:: Flu vaccine is not up to date. - Social history:: Smoking status: Patient/guardian denies using tobacco. - Ebola Screening: : No symptoms or risks identified at this time. ROS: 13:50 Constitutional: Negative for body aches, chills, fever, poor PO intake. cp 13:50 Eyes: Negative for injury, pain, redness, and discharge. cp 13:50 ENT: Negative for drainage from ear(s), ear pain, sore throat, difficulty swallowing, difficulty handling secretions, hoarseness. 13:50 Cardiovascular: Positive for chest pain, of the anterior aspect of left upper chest, Negative for edema, palpitations. 13:50 Respiratory: Negative for cough, shortness of breath, wheezing. 13:50 Abdomen/GI: Negative for abdominal pain, nausea, vomiting, and diarrhea, constipation, black/tarry stool, rectal bleeding. 13:50 Back: Negative for injury or acute deformity, radiated pain. 13:50 Skin: Negative for cellulitis, rash. 13:50 Neuro: Negative for altered mental status, dizziness, headache, syncope, near syncope, weakness. 13:50 All other systems are negative. Exam: 13:55 Constitutional: The patient appears in no acute distress, alert, awake, cp non-diaphoretic, non-toxic, well developed, well nourished, uncomfortable. 13:55 Head/Face: Normocephalic, atraumatic. Eyes: Pupils equal round and reactive to light, cp extra-ocular motions intact. Lids and lashes normal. Conjunctiva and sclera are non-icteric and not injected. Cornea within normal limits. Periorbital areas with no swelling, redness, or edema. ENT: Nares patent. No nasal discharge, no septal abnormalities noted. Tympanic membranes are normal and external auditory canals are clear. Oropharynx with no redness, swelling, or masses, exudates, or evidence of obstruction, uvula midline. Mucous membranes moist. 13:55 Neck: External neck: is normal, ROM/movement: is normal, is supple, without pain, no range of motions limitations, no nuchal rigidity, Lymph nodes: no appreciated lymphadenopathy. 13:55 Chest/axilla: Inspection: normal, Palpation: crepitus, is not appreciated, tenderness, that is moderate, of the anterior aspect of left upper chest and left breast, that partially reproduces the patient's complaints. 13:55 Cardiovascular: Rate: normal, Rhythm: regular, Pulses: Pulses are 2+ in right radial artery and left radial artery. Edema: is not appreciated, JVD: is not appreciated. 13:55 Respiratory: the patient does not display signs of respiratory distress, Respirations: normal, no use of accessory muscles, no retractions, no splinting, no tachypnea, labored breathing, is not present, Breath sounds: are clear throughout, no decreased breath sounds, no stridor, no wheezing. 13:55 Abdomen/GI: Inspection: abdomen appears normal, Palpation: abdomen is soft and non-tender, in all quadrants, rebound tenderness, is not appreciated, voluntary guarding, is not appreciated, involuntary guarding, is not appreciated. 13:55 Back: pain, is absent, ROM is normal. 13:55 Skin: cellulitis, is not appreciated, no rash present. 13:55 Neuro: Orientation: to person, place \T\ time. Mentation: is normal, Cerebellar function: is grossly normal, Motor: moves all fours, strength is normal, Sensation: is normal. 17:37 ECG was reviewed by the Attending Physician. cp Vital Signs: 13:31 Pulse 65; Resp 18 S; Pulse Ox 95% on R/A; Weight 65.77 kg; Height 5 ft. 9 in. (175.26 iw cm); Pain 10/10; 13:37 BP 112 / 79; Temp 98.8; aj1 14:24 BP 127 / 81; Pulse 65; Resp 18; Pulse Ox 95% on R/A; aj1 15:40 BP 101 / 69; Pulse 63; Resp 16; Pulse Ox 94% on R/A; aj1 16:40 BP 127 / 77; Pulse 72; Resp 18; Pulse Ox 95% on R/A; aj1 17:39 BP 109 / 75; Pulse 63; Resp 15; Pulse Ox 94% on R/A; aj1 18:27 BP 107 / 69; Pulse 69; Resp 19; Pulse Ox 95% on R/A; aj1 19:35 BP 116 / 75; Pulse 72; Resp 15; Pulse Ox 94% on R/A; aj1 13:31 Body Mass Index 21.41 (65.77 kg, 175.26 cm) iw MDM: 13:35 Patient medically screened. cp 14:00 Differential diagnosis: abnormal EKG, acute myocardial infarction, chest wall pain, cp pericarditis, pleurisy, pneumonia, pneumothorax, pulmonary embolus, stable angina, unstable angina. 17:48 Data reviewed: vital signs, nurses notes, lab test result(s), EKG, radiologic studies, cp plain films. Test interpretation: by ED physician or midlevel provider: ECG, plain radiologic studies. Counseling: I had a detailed discussion with the patient and/or guardian regarding: the historical points, exam findings, and any diagnostic results supporting the discharge/admit diagnosis, lab results, radiology results. Physician consultation: Yosi Waters DO was called at 17:45, was contacted at 17:45, regarding admission, to the telemetry unit. patient's condition, and will see patient in ED, shortly. 11/15 13:43 Order name: Basic Metabolic Panel; Complete Time: 14:27 cp 11/15 14:27 Interpretation: Normal except: GFR 88. cp 11/15 13:43 Order name: CBC with Diff; Complete Time: 14:27 cp 11/15 14:27 Interpretation: Normal except: RBC 5.63; HGB 18.4; HCT 53.8; MPV 12.4. 11/15 13:43 Order name: LFT's; Complete Time: 14:27 11/15 14:27 Interpretation: Normal except: BILID 0.3. 11/15 13:43 Order name: Magnesium; Complete Time: 14:27 11/15 13:43 Order name: NT PRO-BNP; Complete Time: 14:27 11/15 13:43 Order name: PT-INR; Complete Time: 14:27 11/15 13:43 Order name: Troponin (emerg Dept Use Only); Complete Time: 14:27 11/15 14:27 Interpretation: Within normal limits: TROPED < 0.02. 11/15 13:43 Order name: XRAY Chest (1 view); Complete Time: 14:50 11/15 14:50 Interpretation: Report review. 11/15 13:43 Order name: EKG; Complete Time: 13:44 11/15 17:07 Order name: Troponin I; Complete Time: 17:54 11/15 17:55 Interpretation: TROP < 0.02; Reviewed. 11/15 17:07 Order name: EKG; Complete Time: 17:07 11/15 13:43 Order name: Cardiac monitoring; Complete Time: 13:49 11/15 13:43 Order name: EKG - Nurse/Tech; Complete Time: 13:49 11/15 13:43 Order name: IV Saline Lock; Complete Time: 13:49 11/15 13:43 Order name: Labs collected and sent; Complete Time: 13:49 11/15 13:43 Order name: O2 Per Protocol; Complete Time: 13:49 11/15 13:43 Order name: O2 Sat Monitoring; Complete Time: 13:50 11/15 17:07 Order name: EKG - Nurse/Tech; Complete Time: 17:40 cp EC:37 Rate is 65 beats/min. Rhythm is regular, Paced. CT interval is normal at 138 msec. QRS cp interval is prolonged at 104 msec. QT interval is normal. T waves are Inverted in leads I, aVL, V1, V2, V3, V4, V5. Interpreted by me. Reviewed by me. Administered Medications: 14:05 Drug: fentaNYL (PF) 25 mcg Route: IVP; Site: right antecubital; la1 17:20 Follow up: Response: No adverse reaction; Pain is decreased la1 14:05 Drug: ProTONIX 40 mg Route: IVP; Site: right antecubital; la1 17:21 Follow up: Response: No adverse reaction la1 17:56 Drug: PlaVIX 300 mg Route: PO; aj1 18:30 Follow up: Response: No adverse reaction aj1 Disposition: 11/16 09:41 Co-signature as Attending Physician, Nba Maguire MD I agree with the assessment and kdr plan of care. Disposition: 11/15/18 17:55 Hospitalization ordered by Yosi Waters for Observation. Preliminary diagnosis is Chest pain, unspecified. - Bed requested for Telemetry/MedSurg (observation). - Status is Observation. aj1 - Condition is Stable. - Problem is new. - Symptoms have improved. UTI on Admission? No Signatures: Dispatcher [employer] EDMS Alexandra Abdi RN RN aj1 Nba Maguire MD MD [facility] Kun Bell RN RN [facility] Javad Sykes PA PA cp Garcia, Cindy RN RN cg Corrections: (The following items were deleted from the chart) 11/15 19:12 17:55 Hospitalization Ordered by Yosi Waters DO for Observation. Preliminary cg diagnosis is Chest pain, unspecified. Bed requested for Telemetry/MedSurg (observation). Status is Observation. Condition is Stable. Problem is new. Symptoms have improved. UTI on Admission? No. cp 20:43 19:12 11/15/2018 17:55 Hospitalization Ordered by Yosi Waters DO for Observation. aj1 Preliminary diagnosis is Chest pain, unspecified. Bed requested for Telemetry/MedSurg (observation). Status is Observation. Condition is Stable. Problem is new. Symptoms have improved. UTI on Admission? No. cg
--- NOTE | 2018-11-15 18:07 | P.HP ---
Certification for Inpatient Patient admitted to: Observation With expected LOS: <2 Midnights Patient will require the following post-hospital care: None Practitioner: I am a practitioner with admitting privileges, knowledge of patient current condition, hospital course, and medical plan of care. Services: Services provided to patient in accordance with Admission requirements found in Title 42 Section 412.3 of the Code of Federal Regulations Patient History Date of Service: 11/15/18 Primary Care Provider: none Reason for admission: Chest pain History of Present Illness: 23-year-old male presented to the emergency room with chest pain. Patient reports chest pain over the past 4 months. It occurs on a daily basis. It comes and goes. He reports the pain being a shocking sensation. He has not been able follow up with his mica paster in over a year. He has been will insurance. Patient has history of congenital heart disease and pacemaker. He has had multiple surgeries throughout his life for his heart. He decided to come to the ER for further evaluation. In the ER patient evaluated. His pacemaker was interrogated. No significant changes or identified. EKG showed ST inversion in lateral leads. Initial cardiac enzymes unremarkable. Lab appeared stable. Patient was admitted for observation. When I saw the patient the ER, he appeared stable. He is without any chest pain patient has been trying to get insurance to go back and see his mica paster Allergies No Known Allergies Allergy (Unverified 03/29/18 16:58) Home medications list reviewed: Yes - Past Medical/Surgical History Diabetic: No -: Congenital heart disease, multiple heart surgeries -: Pacemaker placement -: Multiple heart surgeries x3 -: Pacemaker placement Psychosocial/ Personal History: Patient has a fiancee. He has 1 child. He works at this time. - Family History Family History: Reviewed- Non-Contributory - Social History Smoking Status: Never smoker Alcohol use: Yes CD- Drugs: No Caffeine use: Yes Place of Residence: Home Review of Systems General: As per HPI Eyes: Unremarkable ENT: Unremarkable Respiratory: Unremarkable Cardiovascular: Chest Pain, As per HPI Gastrointestinal: Unremarkable Genitourinary: Unremarkable Musculoskeletal: Unremarkable Integumentary: Unremarkable Neurological: Unremarkable Lymphatics: Unremarkable Physical Examination - Physical Exam General: Alert, In no apparent distress, Oriented x3, Cooperative HEENT: Atraumatic, Normocephalic, PERRLA, Mucous membr. moist/pink Neck: Supple, No Thyromegaly Respiratory: Clear to auscultation bilaterally, Normal air movement Cardiovascular: Normal pulses, Regular rate/rhythm Gastrointestinal: Normal bowel sounds, Soft and benign, Non-distended, No tenderness, No masses, No rebound, No guarding Musculoskeletal: No erythema, No tenderness, No warmth Integumentary: No tenderness/swelling, No erythema, No warmth, No cyanosis Neurological: Normal speech, Normal strength at 5/5 x4 extr, Normal tone, Normal affect Lymphatics: No axilla or inguinal lymphadenopathy - Studies Laboratory Data (last 24 hrs) 11/15/18 17:20: Troponin I < 0.02 11/15/18 13:50: PT 13.5 H, INR 1.14 11/15/18 13:50: WBC 8.5, Hgb 18.4 H, Hct 53.8 H, Plt Count 192 11/15/18 13:50: Sodium 140, Potassium 4.1, BUN 15, Creatinine 1.06, Glucose 96, Magnesium 2.2, Total Bilirubin 1.0, AST 16, ALT 22, Alkaline Phosphatase 83 Assessment and Plan - Plan Impression: Chest pain with history of congenital heart disease with prior multiple cardiac surgeries and pacemaker placement Plan: Patient will be admitted and monitored on telemetry. Will continue to monitor cardiac enzymes. Will recheck lab in the morning. Will consult cardiology for further recommendation. Will check echocardiogram to further assess. Will keep the patient NPO as the patient may require cardiac evaluation. Will continue with aspirin and DVT prophylaxis. Pacemaker has been interrogated. No significant changes noted. Discharge Plan: Home Plan to discharge in: 24 Hours - Advance Directives Does patient have a Living Will: No Does patient have a Durable POA for Healthcare: No - Code Status/Comfort Care Code Status Assessed: Yes (Patient full code.) Time Spent Managing Pts Care (In Minutes): 55
[2018-11-15] MEDS ORDERED: TRAMADOL HCL 50 MG TAB PO PRN (21:10)
[2018-11-15] MEDS ORDERED: ONDANSETRON 4 MG/2 ML VIAL IV PRN (21:10)
[2018-11-15] MEDS ORDERED: ACETAMINOPHEN 500 MG TAB PO PRN (21:10)
[2018-11-15] MEDS ORDERED: NITROGLYCERIN 0.4 MG/TAB SL PRN (21:10)
[2018-11-15] MEDS ORDERED: MORPHINE 2 MG/ML SYR IV PRN (21:10)
[2018-11-15 22:47] LABS: CKMB Creatine Kinase MB 1.8 ng/mL (0.3-3.6); Creatine Phosphokinase 111 U/L (39-308); Troponin I < 0.02 ng/mL (0.0-0.045)
[2018-11-15 22:55] LABS: Thyroid Stimulating Hormone 5.44 uIU/mL (0.360-3.740)
[2018-11-16 03:16] LABS: Urine Appearance CLEAR; Urine Bilirubin NEGATIVE (NEG); Urine Blood NEGATIVE (NEG); Urine Color YELLOW; Urine Glucose NEGATIVE (NEG); Urine Protein NEGATIVE (NEG); Urine Specific Gravity >=1.030 (1.005-1.030)
[2018-11-16 03:18] LABS: Urine Microscopic Reflex NO UMIC
--- NOTE | 2018-11-16 06:28 | EKG ---
Test Date: 2018-11-15 Test Time: 17:30:18 Hearth Feeder: SANA MEASUREMENT RESULTS: Intervals: Rate: 65 ND: 138 QRSD: 104 QT: 426 QTc: 443 [place]: P: 30 ND: 138 QRS: 119 T: 106 INTERPRETIVE STATEMENTS: Atrial-paced rhythm Right axis deviation Right ventricular hypertrophy with repolarization abnormality T wave abnormality, consider lateral ischemia Abnormal ECG Compared to ECG 11/15/2018 13:24:08 no significant change from previous ECG Electronically Signed On 11-16-18 06:28:14 CUSTOMER ENGINEER by Mauricio Pretty
--- NOTE | 2018-11-16 06:29 | EKG ---
Test Date: 2018-11-15 Test Time: 14:42:58 Archeology Faculty Member: SANA MEASUREMENT RESULTS: Intervals: Rate: 63 MN: 142 QRSD: 96 QT: 446 QTc: 456 [place]: P: 75 MN: 142 QRS: 117 T: 105 INTERPRETIVE STATEMENTS: Atrial-paced rhythm Right ventricular hypertrophy Nonspecific T abnormality Abnormal ECG Compared to ECG 11/15/2018 13:24:08 Sinus rhythm no longer present T wave deviation still present Electronically Signed On 11-16-18 06:29:12 BARREL LINE OPERATOR by Mauricio Pretty
[2018-11-16 06:34] LABS: BUN Blood Urea Nitrogen 17 mg/dL (7-18); Bicarbonate 23 mmol/L (21-32); CKMB Creatine Kinase MB 1.3 ng/mL (0.3-3.6); Creatine Phosphokinase 83 U/L (39-308); Glucose Level 116 mg/dL (74-106); HDL Cholesterol 42 mg/dL (40-60); LDL Cholesterol, Calculated 60 (<130); Magnesium 2.2 mg/dL (1.8-2.4); Sodium Level 140 mmol/L (136-145); Troponin I < 0.02 ng/mL (0.0-0.045)
[2018-11-16 07:06] LABS: Absolute Lymphocytes (CBC) 1.9 K/uL (0.7-4.9); Absolute Monocytes 0.5 K/uL (0.1-1.3); Absolute Neutrophil 4.9 K/uL (1.8-8.0); Basophils % 0.4 % (0-1.3); Eosinophils % 2.3 % (0-4.4); Hematocrit 49.7 % (39.6-49.0); Lymphocytes % 25.6 % (15.3-44.8); MPV 12.4 fL (7.6-11.3); Monocytes % 6.6 % (3.3-12.3)
[2018-11-16] MEDS ORDERED: MORPHINE 4 MG/ML SYR IV PRN (08:08)
[2018-11-16] MEDS ORDERED: FAMOTIDINE 20 MG TAB PO SCH (09:00)
[2018-11-16] MEDS ORDERED: ENOXAPARIN 40 MG/0.4 ML SQ SCH (09:00)
[2018-11-16] MEDS ORDERED: ASPIRIN EC 81 MG TAB PO SCH (09:00)
--- NOTE | 2018-11-16 12:09 | P.DS ---
Admission Date: 11/15/18 Discharge Date: 11/16/18 Primary Care Provider: none Disposition: ROUTINE DISCHARGE Discharge Condition: GOOD Reason for Admission: Chest pain Consultations: Cardiology-Dr. Womack Procedures: Echocardiogram: Final results pending at discharge. Medical Problem List: Chest pain with history of congenital heart disease with prior multiple cardiac surgeries and pacemaker placement Brief History of Present Illness: 23-year-old male presented to the emergency room with chest pain. Patient reports chest pain over the past 4 months. It occurs on a daily basis. It comes and goes. He reports the pain being a shocking sensation. He has not been able follow up with his dining services director in over a year. He has been will insurance. Patient has history of congenital heart disease and pacemaker. He has had multiple surgeries throughout his life for his heart. He decided to come to the ER for further evaluation. In the ER patient evaluated. His pacemaker was interrogated. No significant changes or identified. EKG showed ST inversion in lateral leads. Initial cardiac enzymes unremarkable. Lab appeared stable. Patient was admitted for observation. When I saw the patient the ER, he appeared stable. He is without any chest pain patient has been trying to get insurance to go back and see his dining services director Hospital Course: Patient presented with chest pain. Patient with history of congenital heart disease with multiple prior heart surgeries with pacemaker placement. Patient did well during his stay. Cardiac enzymes unremarkable. Echocardiogram obtained. Patient seen and evaluated by Cardiology. No intervention was required. Pacemaker interrogation revealed no significant abnormality. At discharge patient will continue with aspirin 81 mg daily. Patient will need a follow up with Medicaid office to obtain his insurance. Once his insurance has been obtained, recommendation is for the patient to follow up with his dining services director in [place] within 2-4 weeks to follow up this hospitalization and continue his care. Patient will need to establish care in the local area to maintain his medical issues. Recommend to recheck tsh, free T4 in 4-6 weeks as tsh was slightly elevated. Vital Signs/Physical Exam: Temp Pulse Resp BP Pulse Ox 97.2 F 59 16 115/56 L 94 11/16/18 08:00 11/16/18 08:00 11/16/18 08:00 11/16/18 08:00 11/16/18 08:00 General: Alert, In no apparent distress, Oriented x3, Cooperative HEENT: Atraumatic, Mucous membr. moist/pink Neck: Supple, No Thyromegaly Respiratory: Clear to auscultation bilaterally, Normal air movement Cardiovascular: Normal pulses, Regular rate/rhythm Gastrointestinal: Normal bowel sounds, Soft and benign, Non-distended, No tenderness, No masses, No rebound, No guarding Musculoskeletal: No erythema, No tenderness, No warmth Integumentary: No tenderness/swelling, No erythema, No warmth, No cyanosis Neurological: Normal speech, Normal strength at 5/5 x4 extr, Normal tone, Normal affect Lymphatics: No axilla or inguinal lymphadenopathy Laboratory Data at Discharge: WBC 7.5 K/uL (4.3-10.9) 11/16/18 06:00 Hgb 17.1 g/dL (13.6-17.9) 11/16/18 06:00 Hct 49.7 % (39.6-49.0) H 11/16/18 06:00 Plt Count 198 K/uL (152-406) 11/16/18 06:00 PT 13.5 SECONDS (9.5-12.5) H 11/15/18 13:50 INR 1.14 11/15/18 13:50 Sodium 140 mmol/L (136-145) 11/16/18 06:00 Potassium 4.0 mmol/L (3.5-5.1) 11/16/18 06:00 BUN 17 mg/dL (7-18) 11/16/18 06:00 Creatinine 0.94 mg/dL (0.55-1.3) 11/16/18 06:00 Glucose 116 mg/dL (74-106) H 11/16/18 06:00 Magnesium 2.2 mg/dL (1.8-2.4) 11/16/18 06:00 Total Bilirubin 1.0 mg/dL (0.2-1.0) 11/15/18 13:50 AST 16 U/L (15-37) 11/15/18 13:50 ALT 22 U/L (12-78) 11/15/18 13:50 Alkaline Phosphatase 83 U/L (45-117) 11/15/18 13:50 Troponin I < 0.02 ng/mL (0.0-0.045) 11/16/18 06:00 Triglycerides 97 mg/dL (<150) 11/16/18 06:00 Cholesterol 121 mg/dL (<200) 11/16/18 06:00 HDL Cholesterol 42 mg/dL (40-60) 11/16/18 06:00 Cholesterol/HDL Ratio 2.88 11/16/18 06:00 Home Medications: Aspirin Chewable [Aspirin Chewable*] 81 mg PO DAILY 11/15/18 Patient Discharge Instructions: 1. Patient presented with chest pain. Patient with history of congenital heart disease with multiple prior heart surgeries with pacemaker placement. Cardiac enzymes unremarkable. Echocardiogram obtained. Patient seen and evaluated by Cardiology. No intervention was required. Pacemaker interrogation revealed no significant abnormality. At discharge patient will continue with aspirin 81 mg daily. Patient will need a follow up with Medicaid office to obtain his insurance. Once his insurance has been obtained, recommendation is for the patient to follow up with his dining services director in [place] within 2-4 weeks to follow up this hospitalization and continue his care. Patient will need to establish care in the local area to maintain his medical issues. 3. Recommend to recheck tsh, free T4 in 4-6 weeks as tsh was slightly elevated. Diet: AHA Activity: Ad ashish Time spent managing pt's care (in minutes): 55
--- NOTE | 2018-11-16 15:13 | CON ---
Mr. Silva is a 23-year-old white male admitted to Dr. Waters' service on 11/15/2018 because of ches t pain. The patient has a history of congenital heart disease status post multiple procedures when aidan ye was young. 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 No details available. Also, has a pacemaker , has a history of seizure and hypertension. His pacemaker is atrial paced. He came in with sharp c hest pain. He was ruled out for an CO. Hemoglobin is 18.3. His TSH was 5.4. 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 Otherwise, CTA of the head and neck were n ormal. He was going to have an echocardiogram today. We will see what that shows prior to making fi nal decisions. He needs to have followup with the division order analyst and the primary care physician in the near future. I would ask Dr. Waters' opinion as far as him going home and we will make that decisio n after the echo. MARTIN/ANABELLA Voice ID: [id number] Report ID: [id number]
--- NOTE | 2018-11-16 15:29 | ECHO ---
HEIGHT: 5 ft 9 in WEIGHT: 141 lb 0 oz DATE OF STUDY: 11/16/[address]: Yosi Waters DO 2-DIMENSIONAL: YES M.MODE: YES DOPPLER: YES COLOR FLOW: YES TDS: YES PORTABLE: NO DEFINITY: NO BUBBLE STUDY: NO DIAGNOSIS: CHEST PAIN, HISTORY OF CONGENITAL HEART DISEASE CARDIAC HISTORY: CATHERIZATION: SURGERY: YES PROSTHETIC VALVE: NO PACEMAKER: YES MEASUREMENTS (cm) DIASTOLIC (NORMALS) SYSTOLIC (NORMALS) IVSd (0.6-1.2) LA Diam (1.9-4.0) LVEF NORMAL% LVIDd (3.5-5.7) LVIDs (2.0-3.5) %FS % LVPWd (0.6-1.2) Ao Diam (2.0-3.7) 2 DIMENSIONAL ASSESSMENT: RIGHT ATRIUM: DILATED LEFT ATRIUM: DILATED RIGHT VENTRICLE: NORMAL LEFT VENTRICLE: DILATED TRICUSPID VALVE: NORMAL MITRAL VALVE: NORMAL PULMONIC VALVE: NORMAL AORTIC VALVE: NORMAL PERICARDIAL EFFUSION: NONE AORTIC ROOT: NORMAL LEFT VENTRICULAR WALL MOTION: NORMAL. DOPPLER/COLOR FLOW: MILD MITRAL AND TRICUSPID REGURGITATION. COMMENTS: DILATED RIGHT AND LEFT ATRIUM. NORMAL EJECTION FRACTION. MILD MITRAL AND TRICUSPID REGURGITATION. LEFT VENTRICULAR DILATATION. STATUS POST CIRA/TOUSSING SHUNT PLUS IESHA PROCEDURE. TECHNOLOGIST: CHARLI SAMSON
== END 2018-11-16 13:48 | disposition home or self-care (01) ==
LOC: ER 13:16 → ERHOLD 17:57 → 4TH 20:23
PROVIDERS: ADMIT Family Medicine; ATTEND Family Medicine
DX: R07.9 Chest pain, unspecified (principal); Q28.9 Congenital malformation of circulatory system, unspecified; Z95.0 Presence of cardiac pacemaker
CPT/HCPCS: 36415; 71045; 80048; 80061; 80076; 81003; 82550; 82553; 83735; 83880; 84439; 84443; 84484; 85025; 85610; 93005; 93280; 93306; 96374; 96375; 99285; C9113; G0378; J1650; J3010

== ENCOUNTER 2020-02-09 04:33 | Observation (INO) | payer OTHER ==
--- OUTSIDE RECORDS SUMMARY | 2020-02-09 04:36 | XMS REPORT ---
:1995 [facility] [address] [place] [address] Care Team Providers Name Role Phone ANTONETTE PEREZ Unavailable Unavailable EMMY CERVANTES Unavailable Unavailable Problems This patient has no known problems. Allergies, Adverse Reactions, Alerts This patient has no known allergies or adverse reactions. Medications This patient has no known medications. Results Test Description Test Time Test Comments Text Results Atomic Results Result Comments BLOOD CULTURE 2018-12-24 07:00:00 Test Item Value Reference Range Comments CULTURE (BEAKER) (test vgdh=1344) No growth in 5 days TROPONIN [id number] 03:20:00 Test Item Value Reference Range Comments TROPONIN I (BEAKER) (test evwc=662) < ng/mL 0.00-0.03 Troponin I (TnI) levels must be interpreted in the context of the presenting symptoms and the clinical findings. Elevated TnI levels indicate myocardial damage, but are not specific for ischemic heart disease. Elevated TnI levels are seen in patients with other cardiac conditions (including myocarditis and congestive heart failure), and slight TnI elevations occur in patients with other conditions, including sepsis, renal failure, acidosis, acute neurological disease, and persistent tachyarrhythmia.BASIC METABOLIC [id number] 03:13:00 Test Item Value Reference Range Comments SODIUM (BEAKER) (test 139 meq/L 136-145 temy=277) POTASSIUM (BEAKER) (test 4.3 meq/L 3.5-5.1 Specimen slightly dpox=596) hemolyzed CHLORIDE (BEAKER) (test 107 meq/L 98-107 uzos=556) CO2 (BEAKER) (test 25 meq/L 22-29 fssw=846) BLOOD UREA NITROGEN 14 mg/dL 7-21 (BEAKER) (test uolu=541) CREATININE (BEAKER) (test 0.87 mg/dL 0.57-1.25 Specimen slightly ykcr=581) hemolyzed GLUCOSE RANDOM (BEAKER) 82 mg/dL 70-105 (test moah=064) CALCIUM (BEAKER) (test 9.5 mg/dL 8.4-10.2 bsjm=468) EGFR (BEAKER) (test 111 mL/min/1.73 sq m ESTIMATED GFR IS NOT wrun=7953) ACCURATE CREATININE CLEARANCE IN PREDICTING GLOMERULAR FILTRATION RATE. ESTIMATED GFR IS NOT APPLICABLE FOR DIALYSIS PATIENTS. CBC W/PLT COUNT & AUTO [id number] 02:55:00 Test Item Value Reference Range Comments WHITE BLOOD CELL COUNT (BEAKER) (test rgie=558) 6.9 K/ L 3.5-10.5 RED BLOOD CELL COUNT (BEAKER) (test nrpt=667) 5.14 M/ L 4.63-6.08 HEMOGLOBIN (BEAKER) (test ciqx=023) 16.1 GM/DL 13.7-17.5 HEMATOCRIT (BEAKER) (test evzi=972) 49.5 % 40.1-51.0 MEAN CORPUSCULAR VOLUME (BEAKER) (test bfiw=641) 96.3 fL 79.0-92.2 MEAN CORPUSCULAR HEMOGLOBIN (BEAKER) (test 31.3 pg 25.7-32.2 gxdh=306) MEAN CORPUSCULAR HEMOGLOBIN CONC (BEAKER) (test 32.5 GM/DL 32.3-36.5 nwea=507) RED CELL DISTRIBUTION WIDTH (BEAKER) (test 13.1 % 11.6-14.4 muzg=395) PLATELET COUNT (BEAKER) (test bvjy=988) 184 K/CU MM 150-450 MEAN PLATELET VOLUME (BEAKER) (test kron=368) 13.2 fL 9.4-12.4 NUCLEATED RED BLOOD CELLS (BEAKER) (test 0 /100 WBC 0-0 uqcd=721) NEUTROPHILS RELATIVE PERCENT (BEAKER) (test 58 % hzas=632) LYMPHOCYTES RELATIVE PERCENT (BEAKER) (test 32 % ysqw=594) MONOCYTES RELATIVE PERCENT (BEAKER) (test 7 % fenw=144) EOSINOPHILS RELATIVE PERCENT (BEAKER) (test 2 % cadi=377) BASOPHILS RELATIVE PERCENT (BEAKER) (test 0 % eejn=006) NEUTROPHILS ABSOLUTE COUNT (BEAKER) (test 3.99 K/ L 1.78-5.38 mkiy=821) LYMPHOCYTES ABSOLUTE COUNT (BEAKER) (test 2.19 K/ L 1.32-3.57 ykux=289) MONOCYTES ABSOLUTE COUNT (BEAKER) (test 0.51 K/ L 0.30-0.82 kfkr=312) EOSINOPHILS ABSOLUTE COUNT (BEAKER) (test 0.12 K/ L 0.04-0.54 whjz=126) BASOPHILS ABSOLUTE COUNT (BEAKER) (test 0.03 K/ L 0.01-0.08 ozrn=673) IMMATURE GRANULOCYTES-RELATIVE PERCENT (BEAKER) 0 % 0-1 (test lkod=0033) [id number] 21:32:00 Test Item Value Reference Range Comments PROTIME (BEAKER) (test tful=396) 13.6 seconds 11.7-14.7 INR (BEAKER) (test tnwd=603) 1.0 <=5.9 PARTIAL THROMBOPLASTIN TIME (BEAKER) (test 31.5 seconds 22.5-36.0 ceym=429) RECOMMENDED COUMADIN/WARFARIN INR THERAPY RANGESSTANDARD DOSE: 2.0 - 3.0 Includes: PROPHYLAXIS forvenous thrombosis, systemic embolization; TREATMENT for venous thrombosis and/or pulmonary embolus.HIGH RISK: Target INR is 2.5-3.5 for patients with mechanical heart valves.TROPONIN [id number] 21:26:00 Test Item Value Reference Range Comments TROPONIN I (BEAKER) (test eifz=686) < ng/mL 0.00-0.03 Troponin I (TnI) levels must be interpreted in the context of the presenting symptoms and the clinical findings. Elevated TnI levels indicate myocardial damage, but are not specific for ischemic heart disease. Elevated TnI levels are seen in patients with other cardiac conditions (including myocarditis and congestive heart failure), and slight TnI elevations occur in patients with other conditions, including sepsis, renal failure, acidosis, acute neurological disease, and persistent tachyarrhythmia.B-TYPE NATRIURETIC FACTOR (BNP) 21:25:00 Test Item Value Reference Range Comments B-TYPE NATRIURETIC PEPTIDE (BEAKER) (test ubel=411) 15 pg/mL 0-100 [id number] 21:19:00 Test Item Value Reference Range Comments MAGNESIUM (BEAKER) (test 2.1 mg/dL 1.6-2.6 Specimen slightly hemolyzed kxtb=093) BASIC METABOLIC [id number] 21:19:00 Test Item Value Reference Range Comments SODIUM (BEAKER) (test 140 meq/L 136-145 jums=920) POTASSIUM (BEAKER) (test 4.4 meq/L 3.5-5.1 Specimen slightly kfze=210) hemolyzed CHLORIDE (BEAKER) (test 109 meq/L 98-107 yleo=595) CO2 (BEAKER) (test 23 meq/L 22-29 cfir=883) BLOOD UREA NITROGEN 14 mg/dL 7-21 (BEAKER) (test jjuk=288) CREATININE (BEAKER) (test 0.86 mg/dL 0.57-1.25 Specimen slightly afif=032) hemolyzed GLUCOSE RANDOM (BEAKER) 84 mg/dL 70-105 (test wqre=393) CALCIUM (BEAKER) (test 9.6 mg/dL 8.4-10.2 hdeo=160) EGFR (BEAKER) (test 112 mL/min/1.73 sq m ESTIMATED GFR IS NOT krxl=9812) ACCURATE CREATININE CLEARANCE IN PREDICTING GLOMERULAR FILTRATION RATE. ESTIMATED GFR IS NOT APPLICABLE FOR DIALYSIS PATIENTS. CREATINE KINASE (CK)2018-12-18 21:19:00 Test Item Value Reference Range Comments CREATINE KINASE TOTAL (BEAKER) (test gyuv=944) 131 U/L 29-200 POCT-LACTIC ACID, [id number] 21:11:00 Test Item Value Reference Range Comments POC-LACTIC ACID, VENOUS 0.8 mmol/L 0.9-1.[address] [facility] [address] [facility] (BEAKER) (test puhk=4131) [facility] [address] RAD, CHEST, 1 VIEW, NON [id number] 21:06:00Reason for exam:->CHEST PAINFINAL REPORT Chest one view AP 12/18/2018 9:05 PM CLINICAL HISTORY: CHEST PAINCOMPARISON: None available FINDINGS: The lungs are clear. Cardiomediastinal contours are within normal limits. The central pulmonary vasculature is not engorged. Cardiac support hardware is in satisfactory radiographic position. IMPRESSION: Unremarkable frontal chest radiograph. Signed: Sedrick Gaitaneport Verified Date/Time: 12/18/2018 21: 06:05 Reading Location: [facility] CBC W/PLT COUNT & AUTO [id number] 21:05:00 Test Item Value Reference Range Comments WHITE BLOOD CELL COUNT (BEAKER) (test tpej=371) 7.3 K/ L 3.5-10.5 RED BLOOD CELL COUNT (BEAKER) (test kcsw=741) 5.06 M/ L 4.63-6.08 HEMOGLOBIN (BEAKER) (test emdd=591) 16.0 GM/DL 13.7-17.5 HEMATOCRIT (BEAKER) (test fful=639) 48.1 % 40.1-51.0 MEAN CORPUSCULAR VOLUME (BEAKER) (test alvi=504) 95.1 fL 79.0-92.2 MEAN CORPUSCULAR HEMOGLOBIN (BEAKER) (test 31.6 pg 25.7-32.2 jhiu=917) MEAN CORPUSCULAR HEMOGLOBIN CONC (BEAKER) (test 33.3 GM/DL 32.3-36.5 cvqh=172) RED CELL DISTRIBUTION WIDTH (BEAKER) (test 13.2 % 11.6-14.4 gjjp=600) PLATELET COUNT (BEAKER) (test rlri=729) 176 K/CU MM 150-450 MEAN PLATELET VOLUME (BEAKER) (test cjzf=389) 12.7 fL 9.4-12.4 NUCLEATED RED BLOOD CELLS (BEAKER) (test 0 /100 WBC 0-0 crby=382) NEUTROPHILS RELATIVE PERCENT (BEAKER) (test 69 % yckj=936) LYMPHOCYTES RELATIVE PERCENT (BEAKER) (test 23 % xbas=415) MONOCYTES RELATIVE PERCENT (BEAKER) (test 7 % eyew=324) EOSINOPHILS RELATIVE PERCENT (BEAKER) (test 1 % wudb=940) BASOPHILS RELATIVE PERCENT (BEAKER) (test 0 % juio=475) NEUTROPHILS ABSOLUTE COUNT (BEAKER) (test 5.00 K/ L 1.78-5.38 idrz=750) LYMPHOCYTES ABSOLUTE COUNT (BEAKER) (test 1.65 K/ L 1.32-3.57 azdw=752) MONOCYTES ABSOLUTE COUNT (BEAKER) (test 0.49 K/ L 0.30-0.82 yovf=671) EOSINOPHILS ABSOLUTE COUNT (BEAKER) (test 0.08 K/ L 0.04-0.54 ilmi=005) BASOPHILS ABSOLUTE COUNT (BEAKER) (test 0.03 K/ L 0.01-0.08 xvgd=041) IMMATURE GRANULOCYTES-RELATIVE PERCENT (BEAKER) 0 % 0-1 (test svra=4633) T4, [id number] 11:47:00 Test Item Value Reference Range Comments FREE T4 (BEAKER) (test fuie=247) 1.09 ng/dL 0.70-1.48 HEMOGLOBIN [id number] 10:04:00 Test Item Value Reference Range Comments HEMOGLOBIN A1C (BEAKER) (test siln=326) 6.2 % 4.3-6.1 CALCIUM, [id number] 07:52:00 Test Item Value Reference Range Comments CALCIUM IONIZED (BEAKER) (test rzzv=083) 1.00 mmol/L 1.12-1.27 PH, BLOOD (BEAKER) (test cewr=7957) 7.35 [id number] 06:09:00 Test Item Value Reference Range Comments PHOSPHORUS (BEAKER) (test jbdo=603) 3.4 mg/dL 2.3-4.7 [id number] 06:09:00 Test Item Value Reference Range Comments MAGNESIUM (BEAKER) (test gzps=675) 1.7 mg/dL 1.6-2.6 BASIC METABOLIC [id number] 06:09:00 Test Item Value Reference Range Comments SODIUM (BEAKER) (test 139 meq/L 136-145 rupu=858) POTASSIUM (BEAKER) (test 3.6 meq/L 3.5-5.1 fmvi=359) CHLORIDE (BEAKER) (test 106 meq/L 98-107 lhxc=046) CO2 (BEAKER) (test 24 meq/L 22-29 pbzb=267) BLOOD UREA NITROGEN 11 mg/dL 7-21 (BEAKER) (test dobn=650) CREATININE (BEAKER) (test 0.78 mg/dL 0.57-1.25 mssh=456) GLUCOSE RANDOM (BEAKER) 86 mg/dL 70-105 (test nxsd=861) CALCIUM (BEAKER) (test 8.9 mg/dL 8.4-10.2 bzgi=644) EGFR (BEAKER) (test 127 mL/min/1.73 sq m ESTIMATED GFR IS NOT ffxr=1209) ACCURATE CREATININE CLEARANCE IN PREDICTING GLOMERULAR FILTRATION RATE. ESTIMATED GFR IS NOT APPLICABLE FOR DIALYSIS PATIENTS. LIPID [id number] 06:09:00 Test Item Value Reference Range Comments TRIGLYCERIDES (BEAKER) (test rhgp=350) 89 mg/dL CHOLESTEROL (BEAKER) (test akon=513) 132 mg/dL HDL CHOLESTEROL (BEAKER) (test zrci=600) 36 mg/dL LDL CHOLESTEROL CALCULATED (BEAKER) (test 78 mg/dL ocyr=101) Triglyceride Reference Range: Low Risk <150 Borderline 150- 199 High Risk 200-499 Very High Risk >=500Cholesterol Reference Range: Low Risk <200 Borderline 200-239 High Risk > 240HDL Cholesterol Reference Range: Low Risk >=60 High Risk <40LDL Cholesterol Reference Range: Optimal <100 Near Optimal 100-129 Borderline 130-159 High 160-189 Very High >=190TSH/FREE T4 IF [id number] 05:58:00 Test Item Value Reference Range Comments THYROID STIMULATING HORMONE (BEAKER) (test 10.61 uIU/mL 0.35-4.94 wdmk=064) [id number] 05:44:00 Test Item Value Reference Range Comments D-DIMER QUANTITATIVE (BEAKER) (test sliq=288) < MG/L FEU <0.50 Intended Use: The [...] 95-100% range.CBC W/ PLT COUNT & AUTO [id number] 04:54:00 Test Item Value Reference Range Comments WHITE BLOOD CELL COUNT (BEAKER) (test oqxt=618) 8.5 K/ L 3.5-10.5 RED BLOOD CELL COUNT (BEAKER) (test yvzt=898) 5.30 M/ L 4.63-6.08 HEMOGLOBIN (BEAKER) (test mlhf=940) 16.2 GM/DL 13.7-17.5 HEMATOCRIT (BEAKER) (test xurz=120) 49.2 % 40.1-51.0 MEAN CORPUSCULAR VOLUME (BEAKER) (test kzzq=813) 92.8 fL 79.0-92.2 MEAN CORPUSCULAR HEMOGLOBIN (BEAKER) (test 30.6 pg 25.7-32.2 qviu=137) MEAN CORPUSCULAR HEMOGLOBIN CONC (BEAKER) (test 32.9 GM/DL 32.3-36.5 umls=690) RED CELL DISTRIBUTION WIDTH (BEAKER) (test 13.2 % 11.6-14.4 nrtj=950) PLATELET COUNT (BEAKER) (test qyps=109) 205 K/CU MM 150-450 MEAN PLATELET VOLUME (BEAKER) (test eldq=504) 13.1 fL 9.4-12.4 NUCLEATED RED BLOOD CELLS (BEAKER) (test 0 /100 WBC 0-0 frzq=733) NEUTROPHILS RELATIVE PERCENT (BEAKER) (test 65 % etts=951) LYMPHOCYTES RELATIVE PERCENT (BEAKER) (test 27 % vsnw=630) MONOCYTES RELATIVE PERCENT (BEAKER) (test 6 % spuh=511) EOSINOPHILS RELATIVE PERCENT (BEAKER) (test 2 % ypve=223) BASOPHILS RELATIVE PERCENT (BEAKER) (test 0 % txvm=576) NEUTROPHILS ABSOLUTE COUNT (BEAKER) (test 5.52 K/ L 1.78-5.38 vdzj=043) LYMPHOCYTES ABSOLUTE COUNT (BEAKER) (test 2.28 K/ L 1.32-3.57 izgt=997) MONOCYTES ABSOLUTE COUNT (BEAKER) (test 0.50 K/ L 0.30-0.82 ctqg=018) EOSINOPHILS ABSOLUTE COUNT (BEAKER) (test 0.17 K/ L 0.04-0.54 bixe=665) BASOPHILS ABSOLUTE COUNT (BEAKER) (test 0.03 K/ L 0.01-0.08 djqp=023) IMMATURE GRANULOCYTES-RELATIVE PERCENT (BEAKER) 0 % 0-1 (test yygu=3517) COMPREHENSIVE METABOLIC [id number] 18:11:00 Test Item Value Reference Range Comments TOTAL PROTEIN (BEAKER) 7.6 gm/dL 6.0-8.3 (test ybzr=716) ALBUMIN (BEAKER) (test 4.4 g/dL 3.5-5.0 ikbu=8725) ALKALINE PHOSPHATASE 110 U/L 40-150 (BEAKER) (test yeqc=016) BILIRUBIN TOTAL (BEAKER) 0.6 mg/dL 0.2-1.2 (test ycqb=270) SODIUM (BEAKER) (test 140 meq/L 136-145 jwej=444) POTASSIUM (BEAKER) (test 4.5 meq/L 3.5-5.1 xjbg=191) CHLORIDE (BEAKER) (test 105 meq/L 98-107 kcpy=116) CO2 (BEAKER) (test 27 meq/L 22-29 dxfg=714) BLOOD UREA NITROGEN 14 mg/dL 7-21 (BEAKER) (test wfiu=542) CREATININE (BEAKER) (test 1.06 mg/dL 0.57-1.25 kbxw=564) GLUCOSE RANDOM (BEAKER) 71 mg/dL 70-105 (test nyoo=025) CALCIUM (BEAKER) (test 9.7 mg/dL 8.4-10.2 bhlr=857) AST (SGOT) (BEAKER) (test 18 U/L 5-34 yqkx=942) ALT (SGPT) (BEAKER) (test 17 U/L 6-55 xyco=231) EGFR (BEAKER) (test 89 mL/min/1.73 sq m ESTIMATED GFR IS NOT edvg=7139) ACCURATE CREATININE CLEARANCE IN PREDICTING GLOMERULAR FILTRATION RATE. ESTIMATED GFR IS NOT APPLICABLE FOR DIALYSIS PATIENTS. [id number] 18:06:00 Test Item Value Reference Range Comments CORTISOL, TOTAL (BEAKER) (test wfsh=0679) 11.6 ug/dL 3.7-19.4 [id number] 17:48:00 Test Item Value Reference Range Comments PHOSPHORUS (BEAKER) (test sioo=581) 2.8 mg/dL 2.3-4.7 [id number] 17:48:00 Test Item Value Reference Range Comments MAGNESIUM (BEAKER) (test avgc=402) 2.1 mg/dL 1.6-2.6 CBC W/PLT COUNT & AUTO [id number] 17:10:00 Test Item Value Reference Range Comments WHITE BLOOD CELL COUNT (BEAKER) (test pscr=000) 9.0 K/ L 3.5-10.5 RED BLOOD CELL COUNT (BEAKER) (test egwj=702) 5.57 M/ L 4.63-6.08 HEMOGLOBIN (BEAKER) (test pzgi=691) 17.4 GM/DL 13.7-17.5 HEMATOCRIT (BEAKER) (test bddw=046) 53.2 % 40.1-51.0 MEAN CORPUSCULAR VOLUME (BEAKER) (test aykh=667) 95.5 fL 79.0-92.2 MEAN CORPUSCULAR HEMOGLOBIN (BEAKER) (test 31.2 pg 25.7-32.2 yxpd=142) MEAN CORPUSCULAR HEMOGLOBIN CONC (BEAKER) (test 32.7 GM/DL 32.3-36.5 siqs=554) RED CELL DISTRIBUTION WIDTH (BEAKER) (test 13.5 % 11.6-14.4 lxbh=059) PLATELET COUNT (BEAKER) (test hsoa=191) 220 K/CU MM 150-450 MEAN PLATELET VOLUME (BEAKER) (test mimq=560) 13.0 fL 9.4-12.4 NUCLEATED RED BLOOD CELLS (BEAKER) (test 0 /100 WBC 0-0 kzlx=814) NEUTROPHILS RELATIVE PERCENT (BEAKER) (test 76 % ngqy=932) LYMPHOCYTES RELATIVE PERCENT (BEAKER) (test 16 % hgek=861) MONOCYTES RELATIVE PERCENT (BEAKER) (test 7 % nkmn=038) EOSINOPHILS RELATIVE PERCENT (BEAKER) (test 1 % qiie=929) BASOPHILS RELATIVE PERCENT (BEAKER) (test 0 % ewgz=466) NEUTROPHILS ABSOLUTE COUNT (BEAKER) (test 6.81 K/ L 1.78-5.38 iubk=991) LYMPHOCYTES ABSOLUTE COUNT (BEAKER) (test 1.47 K/ L 1.32-3.57 yzkz=690) MONOCYTES ABSOLUTE COUNT (BEAKER) (test 0.59 K/ L 0.30-0.82 aspn=580) EOSINOPHILS ABSOLUTE COUNT (BEAKER) (test 0.10 K/ L 0.04-0.54 vkyq=124) BASOPHILS ABSOLUTE COUNT (BEAKER) (test 0.03 K/ L 0.01-0.08 asvh=136) IMMATURE GRANULOCYTES-RELATIVE PERCENT (BEAKER) 0 % 0-1 (test cqmh=4885)
--- OUTSIDE RECORDS SUMMARY | 2020-02-09 04:36 | XMS REPORT | Summary of Care ---
:1995 Author Organization [facility] - Health Address [address] [place] [id number] Care Team Providers Name Role Phone Surya Kim MD Medicaid Hmo Unavailable Kaci Tatum MD Primary Care Provider Encounter Details Date Type Department Care Team Description 06/05/2019 Orders Only [facility] Doctor Unassigned, No [address] [facility] [place] [address] [place] [id number] Allergies Active Allergy Reactions Severity Noted Date Comments Ibuprofen Anaphylaxis 03/18/2019 documented as of this encounter (statuses as of 07/16/2019) Medications Medication Sig Dispensed Refills Start Date End Date Status aspirin 81 mg chewable Take 81 mg by 0 Active tablet mouth daily. metoprolol tartrate 25 Take 0.5 tablets 30 tablet 2 06/14/2017 Active mg tablet by mouth 2 (two) times daily. 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, Singh 04/1999 , and (Fontan procedure held off because doing well and then finally done on 04/2015 secondary to deterioration in functional status) documented as of this encounter (statuses as of 07/16/2019) Immunizations Name Administration Dates Next Due DTAP 05/22/2002, 06/15/2001 DTP 06/29/1999, 1995 HEPATITIS A 05/22/2002 HIB 4 Dose Schedule 06/29/1999, 1997 Hep B, Adol or Pedi Dosage 11/23/2004, 06/29/1999, 1995, 1995 Influenza Virus Vaccine Quad IM 3+ 09/29/2016 YRS MMR 07/03/2004, 06/15/2001, 06/29/1999 Polio (IPV/OPV) 11/23/2004, 06/15/2001, 06/29/1999, 1997 Td 11/23/2004 Varicella (varivax)(chicken pox) 07/03/2004, 05/22/2002 documented as of this encounter Social History Tobacco Use Types Packs/Day Years Used Date Current Some Day Smoker Sex Assigned at Date Recorded Not on file Job Start Date Occupation Industry Not on file Not on file Not on file Travel History Travel Start Travel End No recent travel history available. documented as of this encounter Last Filed Vital Signs Not on filedocumented in this encounter Plan of Treatment Health Maintenance Due Date Last Done Comments PNEUMOCOCCAL 0-64 YEARS 2003 COMBINED SERIES (1 of 1 - PPSV23) MENINGOCOCCAL B VACCINES (1 2007 of 2 - Risk Bexsero 2-dose series) DTaP,Tdap,and Td Vaccines (5 2008 11/23/2004, 05/22/2002, - Tdap) 06/15/2001, Additional history exists INFLUENZA VACCINE (Retired 07/22/2019 09/29/2016 version) VARICELLA VACCINES Completed 07/03/2004, 05/22/2002 HPV VACCINES Aged Out No longer eligible based on patient's age to complete this topic MENINGOCOCCAL VACCINE Aged Out No longer eligible based on patient's age to complete this topic documented as of this encounter Procedures Procedure Name Priority Date/Time Associated Diagnosis Comments REFERRAL- Routine 06/05/2019 12:01 AM CDT REQUEST/RESPONSE documented in this encounter Results Not on filedocumented in this encounter Insurance Payer Benefit Plan / Subscriber ID Effective Phone Address Type Group Dates [employer] xxxxxxxxx 2019-Lay[address] [place] [id number] [place] [address] documented as of this encounter
[2020-02-09] MEDS ORDERED: MORPHINE 4 MG/ML SYR ONE ×2 (04:54→05:53)
[2020-02-09] MEDS ORDERED: TETANUS & DIPHTHERIA TOX,ADULT 0.5 ML VIAL ONE (04:56)
[2020-02-09] MEDS ORDERED: CEFAZOLIN/SWI 1gm 2 GM/20 ML SYR ONE (04:56)
[2020-02-09] MEDS ORDERED: ONDANSETRON 4 MG/2 ML VIAL ONE ×2 (04:56→05:53)
[2020-02-09] MEDS ORDERED: NA CHLORIDE 0.9% 1,000 ML ONE (04:56)
[2020-02-09 05:03] LABS: Absolute Lymphocytes (CBC) 3.9 K/uL (0.7-4.9); Basophils % 0.5 % (0-1.3); Hematocrit 50.9 % (39.6-49.0); Lymphocytes % 29.8 % (15.3-44.8); MPV 12.4 fL (7.6-11.3); RBC Red Blood Cell Count 5.39 M/uL (4.33-5.43)
[2020-02-09 05:15] LABS: Protime INR 1.05
[2020-02-09 05:28] LABS: ALT/SGPT 27 U/L (12-78); AST/SGOT 19 U/L (15-37); Albumin 4.3 g/dL (3.4-5.0); Alkaline Phosphatase 75 U/L (45-117); BUN Blood Urea Nitrogen 12 mg/dL (7-18); Bicarbonate 24 mmol/L (21-32); Bilirubin Direct 0.2 mg/dL (0-0.2); Bilirubin Total 0.7 mg/dL (0.2-1.0); Glucose Level 103 mg/dL (74-106); Magnesium 2.2 mg/dL (1.8-2.4); NT PRO-BNP 58 pg/mL (<125); Protein, Total 7.7 g/dL (6.4-8.2); Sodium Level 141 mmol/L (136-145); Troponin (Emerg Dept Use Only) < 0.02 ng/mL (0.0-0.045)
[2020-02-09 05:29] LABS: Potassium 2.7 mmol/L (3.5-5.1)
[2020-02-09] MEDS ORDERED: KCL 20 MEQ/100 mL IVPB 20 MEQ/100 ML BAG IV ONE (05:43)
[2020-02-09] MEDS ORDERED: NS KCL 20MEQ 1,000 ML IV ONE (05:43)
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
[2020-02-09] MEDS ORDERED: ONDANSETRON 4 MG/2 ML VIAL IV PRN (09:56)
[2020-02-09] MEDS ORDERED: MORPHINE 4 MG/ML SYR IV PRN (09:56)
[2020-02-09] MEDS ORDERED: NS KCL 20MEQ 20 MEQ/1,000 ML BAG IV SCH (09:56)
[2020-02-09] MEDS ORDERED: ACETAMINOPHEN 500 MG TAB PO PRN (09:56)
[2020-02-09] MEDS ORDERED: POTASSIUM 25 MEQ EFFERV TAB PO SCH (09:56)
--- NOTE | 2020-02-09 10:10 | RAD REPORT ---
EXAM DESCRIPTION: Jin Single View02/09/2020 5:16 am CLINICAL HISTORY: cough COMPARISON: 2018 FINDINGS: The lungs appear clear of acute infiltrate. The heart is normal size. Postsurgical change s involve the chest IMPRESSION: No acute abnormalities displayed
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
[2020-02-09 11:20] VITALS: TEMP 98.6
[2020-02-09] MEDS ORDERED: CEFAZOLIN/SWI 1gm 1 GM/10 ML SYR IVP SCH (12:00)
[2020-02-09 12:52] VITALS: O2SAT 92
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
[2020-02-09 15:13] VITALS: BMI 17.7
[2020-02-09 15:40] VITALS: BP 97/53
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
--- NOTE | 2020-02-10 09:00 | EKG ---
Test Date: 2020-02-09 Test Time: 05:49:50 [employer] Indirect Fire Crewmember: GRADY MEASUREMENT RESULTS: Intervals: Rate: 105 [place]: 212 QRSD: 104 QT: 334 QTc: 441 [place]: P: [place]: 212 QRS: 109 T: -1 INTERPRETIVE STATEMENTS: Sinus tachycardia with 1st degree AV block Possible Right ventricular hypertrophy T wave abnormality, consider inferior ischemia Abnormal ECG Compared to ECG 11/15/2018 17:30:18 First degree AV block now present Atrial-paced complex(es) or rhythm no longer present Ventricular-paced complex(es) or rhythm no longer present Right-axis deviation no longer present Early repolarization no longer present T-wave abnormality still present Possible ischemia still present Electronically Signed On 02-10-20 08:57:56 CDT by Cornelius Womack
--- NOTE | 2020-02-10 09:00 | EKG ---
Test Date: 2020-02-09 Test Time: 05:50:32 Loan Collector: GRADY MEASUREMENT RESULTS: Intervals: Rate: 102 [place]: 236 QRSD: 106 QT: 332 QTc: 432 [place]: P: [place]: 236 QRS: 111 T: 16 INTERPRETIVE STATEMENTS: Sinus tachycardia with 1st degree AV block Right axis deviation Right ventricular hypertrophy Nonspecific ST abnormality Abnormal ECG Compared to ECG 02/09/2020 05:49:50 Right-axis deviation now present ST (T wave) deviation now present T-wave abnormality no longer present Possible ischemia no longer present Electronically Signed On 02-10-20 08:57:54 CDT by Cornelius Womack
== END 2020-02-09 15:42 | disposition home or self-care (01) ==
LOC: ER 04:33 → ERHOLD 07:24 → 2ND 09:04
PROVIDERS: ADMIT Surgery; ATTEND Surgery
DX: S71.102A Unspecified open wound, left thigh, initial encounter (principal); W32.0XXA Accidental handgun discharge, initial encounter; Y92.832 Beach as the place of occurrence of the external cause; Z23 Encounter for immunization; R00.0 Tachycardia, unspecified; I44.0 Atrioventricular block, first degree; R94.31 Abnormal electrocardiogram [ECG] [EKG]
CPT/HCPCS: 96365; 96361; 93005 ×2; 85025; 80048; 36415; 83735; 85610; 80076; 84484; 83880; 73706; 71045; 73552; 90471; 90714; 97161; 96375; 99285; 96366; Q9967; J0690; J7030; J2405 ×2; G0378 ×2

== ENCOUNTER 2021-04-01 17:07 | Emergency (ER) | payer OTHER ==
--- OUTSIDE RECORDS SUMMARY | 2021-04-01 17:09 | XMS REPORT | Continuity of Care Document ---
:1995 Author Organization [facility] t Address [address] [place] [address] Care Team Providers Name Role Phone Pcp Primary Care Physician Unavailable Eusebio POE Attending Clinician Unavailable Radha OLAE, S Attending Clinician Fernando OLEA Attending Clinician Joni OLEA Attending Clinician Doctor Unassigned, Name Attending Clinician Unavailable Alli PEREZ Attending Clinician Unavailable NAZERI Attending Clinician Unavailable Joni OLEA Admitting Clinician MARISA JAIN Admitting Clinician Unavailable NAZERI Admitting Clinician Unavailable Problems Condition Condition Condition Status Onset Resolution Last Treating Co mments Source Name Details Category Date Date Treatment Clinician Date Hypertensi Hypertensi Disease Active [facility] Pacemaker Pacemaker Disease [facility] Other Other Disease Active [facility] insomnia insomnia [facility] Syncope Syncope Disease Active [facility] Allergies, Adverse Reactions, Alerts Allergy Allergy Status Severity Reaction(s) Onset Inactive Treating Comm ents Source Name Type Date Date Clinician Diphenhy Drug Active Swelling [facility]ergy 12[facility] Center Shellfis Propensi Active [facility] h ty to 12-19 [facility] - Containi adverse 00:00: Medical ng reaction 00 [place] [employer] Ibuprofe Drug Active Swelling Throat [facility] Allergy 12-09 [facility]: [facility] 00 [place] Family History Family Member Diagnosis Comments Start Date Stop Date Source Maternal grandfather Hypertension I [facility] Maternal grandfather Kidney disease [facility] Maternal grandfather Stroke [facility] Maternal grandfather Cancer [facility] Maternal grandmother Stroke [facility] Maternal uncle Liver disease [facility] Natural mother Alcohol abuse [facility] Paternal grandfather Cancer [facility] Natural sister Asthma [facility] Natural brother Asthma [facility] Natural father Alcohol abuse [facility] Natural father Asthma [facility] Social History Social Habit Start Date Stop Date Quantity Comments Source Sex Assigned At [facility] Cigarettes smoked 2018-12-19 2018-12-19 [facility] - current (pack per 00:00:00 00:00:00 Medical Center day) - Reported Cigarette 2018-12-19 2018-12-19 [facility] - pack-years 00:00:00 00:00:00 [facility] Tobacco use and 2018-12-19 2018-12-19 Current user [facility] - exposure 00:00:00 00:00:00 [facility] Alcohol intake 2018-12-19 2018-12-19 [facility]00:00 alcohol (finding) [facility] Alcohol Comment 2018-12-19 2018-12-19 [facility]assionally [facility] 00:00:00 beers per week Medical Ce nter History of tobacco 2015-07-[address] [facility] - use 00[facility] Smoking Status Start Date Stop Date Source Former smoker 2018-12-19 00:00:00 2018-12-19 00:00:00 [facility] Medications Ordered Filled Start Stop Current Ordering Indication Dosage Frequency Signature Comments Components Source Medication Medication Date Date Medication? Clinician (SIG) Name Name zolpidem Yes 10mg Take [address] (AMBIEN) 10 12-19 by mouth [facility] s - mg tablet 11:50: every Medical 49 night as Center needed for Insomnia. lansoprazol Yes 20mg Q.5D Take [address] [facility] - by mouth 2 [facility] - (PREVACID) 11:50: (two) Medica l 30 MG 49 times Center capsule daily. aspirin 81 Yes 81mg QD Take [address] MG EC 12-19 by mouth [facility] - tablet 11:50: daily. Medical 49 Center traMADol Yes 50mg Take [address] (ULTRAM) 50 2-01 tablet (50 Nikki kes - mg tablet 00:00: mg total) Med ical 00 by mouth 2 Center (two) times daily as needed for Pain. Max Daily Amount: 100 mg pantoprazol Yes 40mg QD Take [address] [facility] 1-20 tablet (40 [facility] - (PROTONIX) 00:00: mg total) Me dical 40 MG 00 by mouth Center tablet daily. Immunizations Ordered Immunization Filled Immunization Date Status Commen ts Source Name Name Pneumococcal 2017-12-[address] [facility] - Polysaccharide 00:00:00 Medical Ce nter (Pneumovax) Influenza Three-TIV PF 2017-12-[address] [facility] [address] [facility] - 5+ YR 00:[facility]:00 Medical Center Procedures This patient has no known procedures. Plan of Care Planned Activity Planned Date Details Comments Source Future Scheduled 2020-12-[address] [facility] - Test 00:00:00 (procedure) [code = [facility] [id number]] Future Scheduled 2020-07-[address] [facility] - Test 00:00:00 (#1) [code = [facility] INFLUENZA VACCINE (#1)] Encounters Start End Encounter Admission Attending Care Care Encounter Source Date/Time Date/Time Type Type Clinicians Facility Department ID 2020-09-02 2020-09-02 Transition Renata Kaplan [id number] 00:00:00 00:00:00 of Care Faiza Pizarro [id number] [place] [id number] 2020-08-30 2020-09-01 Emergency Kemal Garcia [facility] [id number] 05:21:00 15:04:00 Fernando Joel Estrada [id number] Spencer Quinones [id number] [place] [id number] 2019-06-05 2019-06-05 Orders Doctor SANG [id number] 00:00:00 00:00:00 Only Unassigned, [place] [id number] [place] [facility] [id number] Results Test Description Test Time Test Comments Results Result Comments Source BLOOD CULTURE 2018-12-24 07:00:00 Test Item Value Reference Range Interpretation Comme nts CULTURE (BEAKER) (test code = 1095) No growth in 5 days TROPONIN [id number] 03:20:00 Test Item Value Reference Range Interpretation Comments TROPONIN I (BEAKER) (test code = 397) < ng/mL 0.00-0.03 Troponin I (TnI) levels [...] acute neurological disease, and persistent tachyarrhythmia.BASIC METABOLIC [id number] 03:13:00 Test Item Value Reference Range Interpretation Comments SODIUM (BEAKER) 139 meq/L 136-145 (test code = 381) POTASSIUM (BEAKER) 4.3 meq/L 3.5-5.1 Specimen slightly (test code = 379) hemolyzed CHLORIDE (BEAKER) 107 meq/L 98-107 (test code = 382) CO2 (BEAKER) (test 25 meq/L 22-29 code = 355) BLOOD UREA NITROGEN 14 mg/dL 7-21 (BEAKER) (test code = 354) CREATININE (BEAKER) 0.87 mg/dL 0.57-1.25 Specimen slightly (test code = 358) hemolyzed GLUCOSE RANDOM 82 mg/dL 70-105 (BEAKER) (test code = 652) CALCIUM (BEAKER) 9.5 mg/dL 8.4-10.2 (test code = 697) EGFR (BEAKER) (test 111 mL/min/1.73 ESTIM ATED GFR IS code = 1092) sq m NOT ACCURATE CREATININE CLEARANCE IN PREDICTING GLOMERULAR FILTRATION RATE . ESTIMATED GFR I S NOT APPLICABLE FOR DIALYSIS PATIEN TS. CBC W/PLT COUNT & AUTO [id number] 02:55:00 Test Item Value Reference Range Interpretation Comments WHITE BLOOD CELL COUNT (BEAKER) 6.9 K/ L 3.5-10.5 (test code = 775) RED BLOOD CELL COUNT (BEAKER) 5.14 M/ L 4.63-6.08 (test code = 761) HEMOGLOBIN (BEAKER) (test code = 16.1 GM/DL 13.7-17.5 410) HEMATOCRIT (BEAKER) (test code = 49.5 % 40.1-51.0 411) MEAN CORPUSCULAR VOLUME (BEAKER) 96.3 fL 79.0-92.2 H (test code = 753) MEAN CORPUSCULAR HEMOGLOBIN 31.3 pg 25.7-32.2 (BEAKER) (test code = 751) MEAN CORPUSCULAR HEMOGLOBIN CONC 32.5 GM/DL 32.3-36.5 (BEAKER) (test code = 752) RED CELL DISTRIBUTION WIDTH 13.1 % 11.6-14.4 (BEAKER) (test code = 412) PLATELET COUNT (BEAKER) (test 184 K/CU MM 150-450 code = 756) MEAN PLATELET VOLUME (BEAKER) 13.2 fL 9.4-12.4 H (test code = 754) NUCLEATED RED BLOOD CELLS 0 /100 WBC 0-0 (BEAKER) (test code = 413) NEUTROPHILS RELATIVE PERCENT 58 % (BEAKER) (test code = 429) LYMPHOCYTES RELATIVE PERCENT 32 % (BEAKER) (test code = 430) MONOCYTES RELATIVE PERCENT 7 % (BEAKER) (test code = 431) EOSINOPHILS RELATIVE PERCENT 2 % (BEAKER) (test code = 432) BASOPHILS RELATIVE PERCENT 0 % (BEAKER) (test code = 437) NEUTROPHILS ABSOLUTE COUNT 3.99 K/ L 1.78-5.38 (BEAKER) (test code = 670) LYMPHOCYTES ABSOLUTE COUNT 2.19 K/ L 1.32-3.57 (BEAKER) (test code = 414) MONOCYTES ABSOLUTE COUNT (BEAKER) 0.51 K/ L 0.30-0.82 (test code = 415) EOSINOPHILS ABSOLUTE COUNT 0.12 K/ L 0.04-0.54 (BEAKER) (test code = 416) BASOPHILS ABSOLUTE COUNT (BEAKER) 0.03 K/ L 0.01-0.08 (test code = 417) IMMATURE GRANULOCYTES-RELATIVE 0 % 0-1 PERCENT (BEAKER) (test code = 2801) [id number] 21:32:00 Test Item Value Reference Range Interpretation Comments PROTIME (BEAKER) (test code = 13.6 seconds 11.7-14.7 759) INR (BEAKER) (test code = 370) 1.0 <=5.9 PARTIAL THROMBOPLASTIN TIME 31.5 seconds 22.5-36.0 (BEAKER) (test code = 760) RECOMMENDED COUMADIN/WARFARIN INR THERAPY RANGESSTANDARD DOSE: 2.0 - 3.0 Includes: PROPHYLAXIS forvenous thrombosis, systemic embolization; TREATMENT for venous thrombosis and/or pulmonary embolus.HIGH RISK: Target INR is 2.5-3.5 for patients with mechanical heart valves.TROPONIN [id number] 21:26:00 Test Item Value Reference Range Interpretation Comments TROPONIN I (BEAKER) (test code = 397) < ng/mL 0.00-0.03 Troponin I (TnI) levels [...] disease, and persistent tachyarrhythmia.B-TYPE NATRIURETIC FACTOR (BNP) 2018-12-18 21:25:00 Test Item Value Reference Range Interpretation Comments B-TYPE NATRIURETIC PEPTIDE (BEAKER) 15 pg/mL 0-100 (test code = 700) [id number] 21:19:00 Test Item Value Reference Range Interpretation Comments MAGNESIUM (BEAKER) 2.1 mg/dL 1.6-2.6 Specimen slightly (test code = 627) hemolyzed BASIC METABOLIC [id number] 21:19:00 Test Item Value Reference Range Interpretation Comments SODIUM (BEAKER) 140 meq/L 136-145 (test code = 381) POTASSIUM (BEAKER) 4.4 meq/L 3.5-5.1 Specimen slightly (test code = 379) hemolyzed CHLORIDE (BEAKER) 109 meq/L 98-107 H (test code = 382) CO2 (BEAKER) (test 23 meq/L 22-29 code = 355) BLOOD UREA NITROGEN 14 mg/dL 7-21 (BEAKER) (test code = 354) CREATININE (BEAKER) 0.86 mg/dL 0.57-1.25 Specimen slightly (test code = 358) hemolyzed GLUCOSE RANDOM 84 mg/dL 70-105 (BEAKER) (test code = 652) CALCIUM (BEAKER) 9.6 mg/dL 8.4-10.2 (test code = 697) EGFR (BEAKER) (test 112 mL/min/1.73 ESTIM ATED GFR IS code = 1092) sq m NOT ACCURATE CREATININE CLEARANCE IN PREDICTING GLOMERULAR FILTRATION RATE . ESTIMATED GFR I S NOT APPLICABLE FOR DIALYSIS PATIEN TS. CREATINE KINASE (CK)2018-12-18 21:19:00 Test Item Value Reference Range Interpretation Comments CREATINE KINASE TOTAL (BEAKER) (test 131 U/L 29-200 code = 380) POCT-LACTIC ACID, [id number] 21:11:00 Test Item Value Reference Range Interpretation Comments POC-LACTIC ACID, 0.8 mmol/L 0.9-1.7 L TESTED AT [facility] [address] (BEAKER) (test [facility] code = 2805) [address] RAD, CHEST, 1 VIEW, NON [id number] 21:06:00Reason for exam:->CHEST PAIN FINAL REPORT Chest one view AP 12/18/2018 9:05 PM CLINICAL HISTORY: CHEST PAINCOMPARISON: None available FINDINGS: The lungs are clear. Cardiomediastinal contours are within normal limits. The central pulmonary vasculature is not engorged. Cardiac support hardware is in satisfactory radiographic position. IMPRESSION: Unremarkable frontal chest radiograph. Signed: Sedrick Gaitaneport Verified Date/Time: 12/18/2018 21:06:05 Reading Location: [facility] ReadingRoom CBC W/PLT COUNT & AUTO [id number] 21:05:00 Test Item Value Reference Range Interpretation Comments WHITE BLOOD CELL COUNT (BEAKER) 7.3 K/ L 3.5-10.5 (test code = 775) RED BLOOD CELL COUNT (BEAKER) 5.06 M/ L 4.63-6.08 (test code = 761) HEMOGLOBIN (BEAKER) (test code = 16.0 GM/DL 13.7-17.5 410) HEMATOCRIT (BEAKER) (test code = 48.1 % 40.1-51.0 411) MEAN CORPUSCULAR VOLUME (BEAKER) 95.1 fL 79.0-92.2 H (test code = 753) MEAN CORPUSCULAR HEMOGLOBIN 31.6 pg 25.7-32.2 (BEAKER) (test code = 751) MEAN CORPUSCULAR HEMOGLOBIN CONC 33.3 GM/DL 32.3-36.5 (BEAKER) (test code = 752) RED CELL DISTRIBUTION WIDTH 13.2 % 11.6-14.4 (BEAKER) (test code = 412) PLATELET COUNT (BEAKER) (test 176 K/CU MM 150-450 code = 756) MEAN PLATELET VOLUME (BEAKER) 12.7 fL 9.4-12.4 H (test code = 754) NUCLEATED RED BLOOD CELLS 0 /100 WBC 0-0 (BEAKER) (test code = 413) NEUTROPHILS RELATIVE PERCENT 69 % (BEAKER) (test code = 429) LYMPHOCYTES RELATIVE PERCENT 23 % (BEAKER) (test code = 430) MONOCYTES RELATIVE PERCENT 7 % (BEAKER) (test code = 431) EOSINOPHILS RELATIVE PERCENT 1 % (BEAKER) (test code = 432) BASOPHILS RELATIVE PERCENT 0 % (BEAKER) (test code = 437) NEUTROPHILS ABSOLUTE COUNT 5.00 K/ L 1.78-5.38 (BEAKER) (test code = 670) LYMPHOCYTES ABSOLUTE COUNT 1.65 K/ L 1.32-3.57 (BEAKER) (test code = 414) MONOCYTES ABSOLUTE COUNT (BEAKER) 0.49 K/ L 0.30-0.82 (test code = 415) EOSINOPHILS ABSOLUTE COUNT 0.08 K/ L 0.04-0.54 (BEAKER) (test code = 416) BASOPHILS ABSOLUTE COUNT (BEAKER) 0.03 K/ L 0.01-0.08 (test code = 417) IMMATURE GRANULOCYTES-RELATIVE 0 % 0-1 PERCENT (BEAKER) (test code = 2801) T4, [id number] 11:47:00 Test Item Value Reference Range Interpretation Comments FREE T4 (BEAKER) (test code = 655) 1.09 ng/dL 0.70-1.48 HEMOGLOBIN [id number] 10:04:00 Test Item Value Reference Range Interpretation Comments HEMOGLOBIN A1C (BEAKER) (test code = 6.2 % 4.3-6.1 H 368) CALCIUM, [id number] 07:52:00 Test Item Value Reference Range Interpretation Comments CALCIUM IONIZED (BEAKER) (test 1.00 mmol/L 1.12-1.27 L code = 698) PH, BLOOD (BEAKER) (test code = 7.35 1810) [id number] 06:09:00 Test Item Value Reference Range Interpretation Comments PHOSPHORUS (BEAKER) (test code = 3.4 mg/dL 2.3-4.7 604) [id number] 06:09:00 Test Item Value Reference Range Interpretation Comments MAGNESIUM (BEAKER) (test code = 1.7 mg/dL 1.6-2.6 627) BASIC METABOLIC [id number] 06:09:00 Test Item Value Reference Range Interpretation Comments SODIUM (BEAKER) 139 meq/L 136-145 (test code = 381) POTASSIUM (BEAKER) 3.6 meq/L 3.5-5.1 (test code = 379) CHLORIDE (BEAKER) 106 meq/L 98-107 (test code = 382) CO2 (BEAKER) (test 24 meq/L 22-29 code = 355) BLOOD UREA NITROGEN 11 mg/dL 7-21 (BEAKER) (test code = 354) CREATININE (BEAKER) 0.78 mg/dL 0.57-1.25 (test code = 358) GLUCOSE RANDOM 86 mg/dL 70-105 (BEAKER) (test code = 652) CALCIUM (BEAKER) 8.9 mg/dL 8.4-10.2 (test code = 697) EGFR (BEAKER) (test 127 mL/min/1.73 ESTIM ATED GFR IS code = 1092) sq m NOT ACCURATE CREATININE CLEARANCE IN PREDICTING GLOMERULAR FILTRATION RATE . ESTIMATED GFR I S NOT APPLICABLE FOR DIALYSIS PATIEN TS. LIPID [id number] 06:09:00 Test Item Value Reference Range Interpretation Comments TRIGLYCERIDES (BEAKER) (test code = 89 mg/dL 540) CHOLESTEROL (BEAKER) (test code = 132 mg/dL 631) HDL CHOLESTEROL (BEAKER) (test code 36 mg/dL = 976) LDL CHOLESTEROL CALCULATED (BEAKER) 78 mg/dL (test code = 633) Triglyceride Reference Range: Low Risk <150 Borderline 150-199 High Risk 200-499 Very High Risk >=500Cholesterol Reference Range: Low Risk <200 Borderline 200-239 High Risk >240HDL Cholesterol Reference Range: Low Risk >=60 High Risk <40LDL Cholesterol Reference Range: Optimal <100 Near Optimal 100-129 Borderline 130-159 High 160-189 Very High >=190TSH/FREE T4 IF [id number] 05:58:00 Test Item Value Reference Range Interpretation Comments THYROID STIMULATING HORMONE 10.61 uIU/mL 0.35-4.94 H (BEAKER) (test code = 772) [id number] 05:44:00 Test Item Value Reference Range Interpretation Comments D-DIMER QUANTITATIVE (BEAKER) < MG/L FEU <0.50 (test code = 671) Intended Use: The D-Dimer Assay can be used to aid in the diagnosis of Deep Vein Thrombosis (DVT) and Pulmonary Embolism Disease (PED).In patients with low pre- test probability, various studies concerning STA Liatest D-dimer test have reported that with a cutoff value of 0.50 MG/L FEU, the Negative Predictive Value (NPV) regarding the exclusion of thrombosis is within 95-100% range.CBC W/PLT COUNT & AUTO [id number] 04:54:00 Test Item Value Reference Range Interpretation Comments WHITE BLOOD CELL COUNT (BEAKER) 8.5 K/ L 3.5-10.5 (test code = 775) RED BLOOD CELL COUNT (BEAKER) 5.30 M/ L 4.63-6.08 (test code = 761) HEMOGLOBIN (BEAKER) (test code = 16.2 GM/DL 13.7-17.5 410) HEMATOCRIT (BEAKER) (test code = 49.2 % 40.1-51.0 411) MEAN CORPUSCULAR VOLUME (BEAKER) 92.8 fL 79.0-92.2 H (test code = 753) MEAN CORPUSCULAR HEMOGLOBIN 30.6 pg 25.7-32.2 (BEAKER) (test code = 751) MEAN CORPUSCULAR HEMOGLOBIN CONC 32.9 GM/DL 32.3-36.5 (BEAKER) (test code = 752) RED CELL DISTRIBUTION WIDTH 13.2 % 11.6-14.4 (BEAKER) (test code = 412) PLATELET COUNT (BEAKER) (test 205 K/CU MM 150-450 code = 756) MEAN PLATELET VOLUME (BEAKER) 13.1 fL 9.4-12.4 H (test code = 754) NUCLEATED RED BLOOD CELLS 0 /100 WBC 0-0 (BEAKER) (test code = 413) NEUTROPHILS RELATIVE PERCENT 65 % (BEAKER) (test code = 429) LYMPHOCYTES RELATIVE PERCENT 27 % (BEAKER) (test code = 430) MONOCYTES RELATIVE PERCENT 6 % (BEAKER) (test code = 431) EOSINOPHILS RELATIVE PERCENT 2 % (BEAKER) (test code = 432) BASOPHILS RELATIVE PERCENT 0 % (BEAKER) (test code = 437) NEUTROPHILS ABSOLUTE COUNT 5.52 K/ L 1.78-5.38 H (BEAKER) (test code = 670) LYMPHOCYTES ABSOLUTE COUNT 2.28 K/ L 1.32-3.57 (BEAKER) (test code = 414) MONOCYTES ABSOLUTE COUNT (BEAKER) 0.50 K/ L 0.30-0.82 (test code = 415) EOSINOPHILS ABSOLUTE COUNT 0.17 K/ L 0.04-0.54 (BEAKER) (test code = 416) BASOPHILS ABSOLUTE COUNT (BEAKER) 0.03 K/ L 0.01-0.08 (test code = 417) IMMATURE GRANULOCYTES-RELATIVE 0 % 0-1 PERCENT (BEAKER) (test code = 2801) COMPREHENSIVE METABOLIC [id number] 18:11:00 Test Item Value Reference Range Interpretation Comments TOTAL PROTEIN 7.6 gm/dL 6.0-8.3 (BEAKER) (test code = 770) ALBUMIN (BEAKER) 4.4 g/dL 3.5-5.0 (test code = 1145) ALKALINE PHOSPHATASE 110 U/L 40-150 (BEAKER) (test code = 346) BILIRUBIN TOTAL 0.6 mg/dL 0.2-1.2 (BEAKER) (test code = 377) SODIUM (BEAKER) (test 140 meq/L 136-145 code = 381) POTASSIUM (BEAKER) 4.5 meq/L 3.5-5.1 (test code = 379) CHLORIDE (BEAKER) 105 meq/L 98-107 (test code = 382) CO2 (BEAKER) (test 27 meq/L 22-29 code = 355) BLOOD UREA NITROGEN 14 mg/dL 7-21 (BEAKER) (test code = 354) CREATININE (BEAKER) 1.06 mg/dL 0.57-1.25 (test code = 358) GLUCOSE RANDOM 71 mg/dL 70-105 (BEAKER) (test code = 652) CALCIUM (BEAKER) 9.7 mg/dL 8.4-10.2 (test code = 697) AST (SGOT) (BEAKER) 18 U/L 5-34 (test code = 353) ALT (SGPT) (BEAKER) 17 U/L 6-55 (test code = 347) EGFR (BEAKER) (test 89 mL/min/1.73 ESTIMA CALEB GFR IS code = 1092) sq m NOT ACCURATE CREATININE CLEARANCE IN PREDICTING GLOMERULAR FILTRATION RATE . ESTIMATED GFR I S NOT APPLICABLE FOR DIALYSIS PATIEN TS. [id number] 18:06:00 Test Item Value Reference Range Interpretation Comments CORTISOL, TOTAL (BEAKER) (test 11.6 ug/dL 3.7-19.4 code = 2755) [id number] 17:48:00 Test Item Value Reference Range Interpretation Comments PHOSPHORUS (BEAKER) (test code = 2.8 mg/dL 2.3-4.7 604) [id number] 17:48:00 Test Item Value Reference Range Interpretation Comments MAGNESIUM (BEAKER) (test code = 2.1 mg/dL 1.6-2.6 627) CBC W/PLT COUNT & AUTO [id number] 17:10:00 Test Item Value Reference Range Interpretation Comments WHITE BLOOD CELL COUNT (BEAKER) 9.0 K/ L 3.5-10.5 (test code = 775) RED BLOOD CELL COUNT (BEAKER) 5.57 M/ L 4.63-6.08 (test code = 761) HEMOGLOBIN (BEAKER) (test code = 17.4 GM/DL 13.7-17.5 410) HEMATOCRIT (BEAKER) (test code = 53.2 % 40.1-51.0 H 411) MEAN CORPUSCULAR VOLUME (BEAKER) 95.5 fL 79.0-92.2 H (test code = 753) MEAN CORPUSCULAR HEMOGLOBIN 31.2 pg 25.7-32.2 (BEAKER) (test code = 751) MEAN CORPUSCULAR HEMOGLOBIN CONC 32.7 GM/DL 32.3-36.5 (BEAKER) (test code = 752) RED CELL DISTRIBUTION WIDTH 13.5 % 11.6-14.4 (BEAKER) (test code = 412) PLATELET COUNT (BEAKER) (test 220 K/CU MM 150-450 code = 756) MEAN PLATELET VOLUME (BEAKER) 13.0 fL 9.4-12.4 H (test code = 754) NUCLEATED RED BLOOD CELLS 0 /100 WBC 0-0 (BEAKER) (test code = 413) NEUTROPHILS RELATIVE PERCENT 76 % (BEAKER) (test code = 429) LYMPHOCYTES RELATIVE PERCENT 16 % (BEAKER) (test code = 430) MONOCYTES RELATIVE PERCENT 7 % (BEAKER) (test code = 431) EOSINOPHILS RELATIVE PERCENT 1 % (BEAKER) (test code = 432) BASOPHILS RELATIVE PERCENT 0 % (BEAKER) (test code = 437) NEUTROPHILS ABSOLUTE COUNT 6.81 K/ L 1.78-5.38 H (BEAKER) (test code = 670) LYMPHOCYTES ABSOLUTE COUNT 1.47 K/ L 1.32-3.57 (BEAKER) (test code = 414) MONOCYTES ABSOLUTE COUNT (BEAKER) 0.59 K/ L 0.30-0.82 (test code = 415) EOSINOPHILS ABSOLUTE COUNT 0.10 K/ L 0.04-0.54 (BEAKER) (test code = 416) BASOPHILS ABSOLUTE COUNT (BEAKER) 0.03 K/ L 0.01-0.08 (test code = 417) IMMATURE GRANULOCYTES-RELATIVE 0 % 0-1 PERCENT (LAY) (test code = 2801)
--- NOTE | 2021-04-01 18:12 | RAD REPORT ---
EXAM DESCRIPTION: CT - Head Brain Wo Cont - 04/01/2021 5:48 pm CLINICAL HISTORY: Seizure COMPARISON: 2018 TECHNIQUE: Computed axial tomography of the head was obtained. IV contrast was not requested. All CT scans are performed using dose optimization technique as appropriate and may include automated exposure control or mA/KV adjustment according to patient size. FINDINGS: An intracranial bleed is not seen . The ventricles are normal in caliber. No extra-axial fluid collection is noted. Fluid within the sinuses/ mastoids is not seen. IMPRESSION: No acute intracranial abnormality is seen. If patient's symptoms persist MRI of the bra in would be recommended.
--- NOTE | 2021-04-01 18:36 | RAD REPORT ---
EXAM DESCRIPTION: Jin Single View04/01/2021 6:18 pm CLINICAL HISTORY: Chest pain COMPARISON: 2019 FINDINGS: The lungs are mildly hyperaerated. The lungs appear clear of acute infiltrate. The heart is mildly enlarged. Postsurgical changes involve the chest. IMPRESSION: No acute abnormalities displayed
[2021-04-01 19:00] LABS: Absolute Lymphocytes (CBC) 0.6 K/uL (0.7-4.9); Basophils % 0.2 % (0-1.3); Hematocrit 47.7 % (39.6-49.0); Lymphocytes % 5.4 % (15.3-44.8); MPV 11.6 fL (7.6-11.3); RBC Red Blood Cell Count 5.07 M/uL (4.33-5.43)
[2021-04-01 19:05] LABS: Protime INR 1.23
[2021-04-01] MEDS ORDERED: NA CHLORIDE 0.9% 1,000 ML ONE (19:11)
[2021-04-01 19:21] LABS: Blood Morphology Comment NOT SEEN (NOT SEEN); Platelet Estimate DECR; White Blood Cell Scan OK (OK)
[2021-04-01 19:22] LABS: ALT/SGPT 22 U/L (12-78); AST/SGOT 16 U/L (15-37); Albumin 4.4 g/dL (3.4-5.0); Alkaline Phosphatase 71 U/L (45-117); BUN Blood Urea Nitrogen 14 mg/dL (7-18); Bicarbonate 24 mmol/L (21-32); Bilirubin Direct 0.3 mg/dL (0-0.2); Bilirubin Total 1.4 mg/dL (0.2-1.0); Glucose Level 100 mg/dL (74-106); Magnesium 2.1 mg/dL (1.8-2.4); NT PRO-BNP 155 pg/mL (<125); Potassium 4.2 mmol/L (3.5-5.1); Protein, Total 7.1 g/dL (6.4-8.2); Sodium Level 142 mmol/L (136-145); Troponin (Emerg Dept Use Only) < 0.02 ng/mL (0.0-0.045)
--- NOTE | 2021-04-01 20:50 | ER ---
Nurse's Notes [facility] Name: Chace Silva Age: 25 yrs Sex: Male : 1995 Arrival Date: 04/01/2021 Time: 17:09 Bed 16 Private MD: Diagnosis: Weakness;Epileptic seizures related to external causes;Presence of cardiac pacemaker Presentation: 04/01 17:09 Chief complaint: EMS states: Pt had a couple of near syncope episodes today. Pt stated vg1 has a demand pacemaker due to congenital heart defect and can 'feel when its about to go off; it feels like a muscle spasm and a shock at the same time.'. Coronavirus screen: Client denies travel out of the [place] in the last 14 days. Ebola Screen: Patient negative for fever greater than or equal to 101.5 degrees Fahrenheit, and additional compatible Ebola Virus Disease symptoms. Initial Sepsis Screen: Does the patient meet any 2 criteria? No. Patient's initial sepsis screen is negative. Does the patient have a suspected source of infection? No. Patient's initial sepsis screen is negative. Risk Assessment: Do you want to hurt yourself or someone else? Patient reports no desire to harm self or others. Onset of symptoms was April 01, 2021. 17:09 Method Of Arrival: EMS: [facility] vg1 17:09 Acuity: NIKOLE 3 vg1 Historical: - Allergies: 17:13 Ibuprofen; vg1 - Home Meds: 17:13 aspirin 81 mg Oral chew 2 tabs once daily [Active]; vg1 - PMHx: 17:13 congenital heart diseas; Hypertension; non epileptic seizures; Pacemaker; vg1 - Immunization history:: Adult Immunizations. - Social history:: Smoking status: Pt stated uses marijuana . - Family history:: not pertinent. Screenin:15 Abuse screen: Denies threats or abuse. Nutritional screening: No deficits noted. vg1 Tuberculosis screening: No symptoms or risk factors identified. Fall Risk No fall in past 12 months (0 pts). No IV (0 pts). Ambulatory Aid- None/Bed Rest/Nurse Assist (0 pts). Gait- Normal/Bed Rest/Wheelchair (0 pts) Mental Status- Oriented to own ability (0 pts). Total Jones Fall Scale indicates No Risk (0-24 pts). Assessment: 17:15 General: Appears in no apparent distress. comfortable, Behavior is calm, cooperative. vg1 Pain: Denies pain. Pain: Denies pain. Neuro: Level of Consciousness is awake, alert, obeys commands, Oriented to person, place, time, situation. Cardiovascular: Patient's skin is warm and dry. Respiratory: Airway is patent Respiratory effort is even, unlabored. GI: No signs and/or symptoms were reported involving the gastrointestinal system. : No signs and/or symptoms were reported regarding the genitourinary system. EENT: No signs and/or symptoms were reported regarding the EENT system. Derm: Skin is intact, is healthy with good turgor. Musculoskeletal: Circulation, motion, and sensation intact. 19:59 Reassessment: Patient appears in no apparent distress at this time. Patient and/or vg1 family updated on plan of care and expected duration. Pain level reassessed. Patient is alert, oriented x 3, equal unlabored respirations, skin warm/dry/pink. Patient denies pain at this time. Patient states feeling better. Vital Signs: 17:09 BP 131 / 69; Pulse 68; Resp 18; Temp 98.1; Pulse Ox 97% on R/A; Weight 58.97 kg; Height vg1 5 ft. 10 in. (177.80 cm); Pain 0/10; 19:00 BP 118 / 66; Pulse 76; Resp 20; Pulse Ox 96% on R/A; vg1 17:09 Body Mass Index 18.65 (58.97 kg, 177.80 cm) vg1 ED Course: 17:09 Patient arrived in ED. ds1 17:09 Enma Zaman, RN is Primary Nurse. vg1 17:12 Triage completed. vg1 17:16 Arm band placed on. vg1 17:16 Patient has correct armband on for positive identification. Bed in low position. Call vg1 light in reach. Side rails up X2. Seizure precautions initiated. [employer] officer at pt bedside. 17:27 Javad Michele MD is Attending Physician. shelley 17:48 CT Head Brain wo Cont In Process Unspecified. EDMS 18:18 XRAY Chest (1 view) In Process Unspecified. EDMS 18:49 Initial lab(s) drawn, by me, sent to lab. Inserted saline lock: 20 gauge in left vg1 antecubital area, using aseptic technique. Blood collected. 20:47 Cornelius Womack MD is Referral Physician. [facility] 20:47 Shekhar Colon MD is Referral Physician. [facility] 21:17 No provider procedures requiring assistance completed. IV discontinued, intact, vg1 bleeding controlled, No redness/swelling at site. Pressure dressing applied. Administered Medications: 18:59 Drug: NS 0.9% 1000 ml Route: IV; Rate: 1 bolus; Site: left antecubital; vg1 20:39 Follow up: IV Status: Completed infusion; IV Intake: 1000ml vg1 20:43 Drug: Aspirin 81 mg Route: PO; vg1 21:17 Follow up: Response: No adverse reaction vg1 Intake: 20:39 IV: 1000ml; Total: 1000ml. vg1 Outcome: 20:49 Discharge ordered by . [facility] 21:17 Discharged to home ambulatory, with officer vg1 21:17 Condition: stable 21:17 Discharge instructions given to patient, Instructed on discharge instructions, follow up and referral plans. Demonstrated understanding of instructions, follow-up care. 21:18 Patient left the ED. vg1 Signatures: Dispatcher [employer] Javad Rincon MD MD cha Sanford, Demi ds1 Enma Zaman, RN RN vg1
--- NOTE | 2021-04-01 20:51 | EDPHYS ---
Physician Documentation [facility] Name: Chace Silva Age: 25 yrs Sex: Male : 1995 Arrival Date: 04/01/2021 Time: 17:09 Bed 16 Private MD: ED Physician Javad Michele HPI: 04/01 20:32 This 25 yrs old Male presents to ER via EMS with complaints of Seizure. shelley 20:32 The patient presents after having a single isolated seizure. Character of seizure(s): shelley Loss of consciousness: the patient did not lose consciousness, Motor activity: generalized, Incontinence: none, Apnea: the patient did not experience apnea, Circulation: the patient did not experience evidence of pulse disturbance. Seizure onset: just prior to arrival. Context: the seizure(s) was witnessed, by a bystander, by EMS personnel, by police. Seizure Hx: hx of these seizures, long standing congenital defect, has pacemaker. Historical: - Allergies: 17:13 Ibuprofen; vg1 - Home Meds: 17:13 aspirin 81 mg Oral chew 2 tabs once daily [Active]; vg1 - PMHx: 17:13 congenital heart diseas; Hypertension; non epileptic seizures; Pacemaker; vg1 - Immunization history:: Adult Immunizations. - Social history:: Smoking status: Pt stated uses marijuana . - Family history:: not pertinent. ROS: 20:32 Constitutional: Negative for fever, chills, and weight loss, Eyes: Negative for injury, shelley pain, redness, and discharge, ENT: Negative for injury, pain, and discharge, Neck: Negative for injury, pain, and swelling, Cardiovascular: Negative for chest pain, palpitations, and edema, Respiratory: Negative for shortness of breath, cough, wheezing, and pleuritic chest pain, Abdomen/GI: Negative for abdominal pain, nausea, vomiting, diarrhea, and constipation, Back: Negative for injury and pain, : Negative for injury, bleeding, discharge, and swelling, MS/Extremity: Negative for injury and deformity, Skin: Negative for injury, rash, and discoloration, Psych: Negative for depression, anxiety, suicide ideation, homicidal ideation, and hallucinations, Allergy/Immunology: Negative for hives, rash, and allergies, Endocrine: Negative for neck swelling, polydipsia, polyuria, polyphagia, and marked weight changes, Hematologic/Lymphatic: Negative for swollen nodes, abnormal bleeding, and unusual bruising. 20:32 Neuro: Positive for seizure activity. Exam: 20:46 Constitutional: This is a well developed, well nourished patient who is awake, alert, shelley and in no acute distress. Head/Face: Normocephalic, atraumatic. Eyes: Pupils equal round and reactive to light, extra-ocular motions intact. Lids and lashes normal. Conjunctiva and sclera are non-icteric and not injected. Cornea within normal limits. Periorbital areas with no swelling, redness, or edema. ENT: Nares patent. No nasal discharge, no septal abnormalities noted. Tympanic membranes are normal and external auditory canals are clear. Oropharynx with no redness, swelling, or masses, exudates, or evidence of obstruction, uvula midline. Mucous membranes moist. Neck: Trachea midline, no thyromegaly or masses palpated, and no cervical lymphadenopathy. Supple, full range of motion without nuchal rigidity, or vertebral point tenderness. No Meningismus. Chest/axilla: Normal chest wall appearance and motion. Nontender with no deformity. No lesions are appreciated. Cardiovascular: Regular rate and rhythm with a normal S1 and S2. No gallops, murmurs, or rubs. Normal PMI, no JVD. No pulse deficits. Respiratory: Lungs have equal breath sounds bilaterally, clear to auscultation and percussion. No rales, rhonchi or wheezes noted. No increased work of breathing, no retractions or nasal flaring. Abdomen/GI: Soft, non-tender, with normal bowel sounds. No distension or tympany. No guarding or rebound. No evidence of tenderness throughout. Back: No spinal tenderness. No costovertebral tenderness. Full range of motion. Male : Normal genitalia with no discharge or lesions. Skin: Warm, dry with normal turgor. Normal color with no rashes, no lesions, and no evidence of cellulitis. MS/ Extremity: Pulses equal, no cyanosis. Neurovascular intact. Full, normal range of motion. Neuro: Awake and alert, GCS 15, oriented to person, place, time, and situation. Cranial nerves II-XII grossly intact. Motor strength 5/5 in all extremities. Sensory grossly intact. Cerebellar exam normal. Normal gait. Psych: Awake, alert, with orientation to person, place and time. Behavior, mood, and affect are within normal limits. 20:54 ECG was reviewed by the Attending Physician. [facility] Vital Signs: 17:09 BP 131 / 69; Pulse 68; Resp 18; Temp 98.1; Pulse Ox 97% on R/A; Weight 58.97 kg; Height vg1 5 ft. 10 in. (177.80 cm); Pain 0/10; 19:00 BP 118 / 66; Pulse 76; Resp 20; Pulse Ox 96% on R/A; vg1 17:09 Body Mass Index 18.65 (58.97 kg, 177.80 cm) vg1 MDM: 17:42 Patient medically screened. [facility] 20:51 Differential diagnosis: cardiac arrhythmia, seizure. Data reviewed: vital signs, nurses [facility] notes, lab test result(s), EKG, radiologic studies, CT scan, plain films. Data interpreted: gambling monitor: rate is 76 beats/min, rhythm is regular, paced rhythm. Test interpretation: by ED physician or midlevel provider: ECG, plain radiologic studies. Counseling: I had a detailed discussion with the patient and/or guardian regarding: the historical points, exam findings, and any diagnostic results supporting the discharge/admit diagnosis, lab results, radiology results, the need for outpatient follow up, for definitive care, a public works laborer, a neurologist. 04/01 17:33 Order name: Basic Metabolic Panel [facility] 04/01 17:33 Order name: CBC with Diff [facility] 04/01 17:33 Order name: LFT's [facility] 04/01 17:33 Order name: Magnesium [facility] 04/01 17:33 Order name: NT PRO-BNP [facility] 04/01 17:33 Order name: PT-INR [facility] 04/01 17:33 Order name: Troponin (emerg Dept Use Only) [facility] 04/01 17:33 Order name: Acetaminophen; Complete Time: 20:23 [facility] 04/01 17:33 Order name: ETOH Level; Complete Time: 20:23 [facility] 04/01 17:33 Order name: Ptt, Activated; Complete Time: 20:23 [facility] 04/01 17:33 Order name: Salicylate; Complete Time: 20:23 [facility] 04/01 17:34 Order name: Basic Metabolic Panel; Complete Time: 20:23 [facility] 04/01 17:34 Order name: CBC with Automated Diff; Complete Time: 20:23 [facility] 04/01 17:33 Order name: XRAY Chest (1 view); Complete Time: 20:23 [facility] 05 17:33 Order name: EKG; Complete Time: 17:34 [facility] 05 17:33 Order name: Cardiac monitoring; Complete Time: 18:05 [facility] 05 17:33 Order name: EKG - Nurse/Tech; Complete Time: 18:41 [facility] 05 17:33 Order name: IV Saline Lock; Complete Time: 18:49 [facility] 04/01 17:33 Order name: Labs collected and sent; Complete Time: 18:49 [facility] 04/01 17:33 Order name: O2 Per Protocol; Complete Time: 18:05 [facility] 05 17:33 Order name: CT Head Brain wo Cont; Complete Time: 20:23 [facility] 05 17:34 Order name: Liver (Hepatic) Function; Complete Time: 20:23 [facility] 0512 17:34 Order name: Magnesium; Complete Time: 20:23 [facility] 05 17:34 Order name: NT PRO-BNP; Complete Time: 20:23 [facility] 04/01 17:34 Order name: Protime (+INR); Complete Time: 20:23 [facility] 04/01 17:34 Order name: Troponin (Emerg Dept Use Only); Complete Time: 20:23 [facility] 0512 19:21 Order name: CBC Smear Scan; Complete Time: 20:23 [facility] 04/01 17:33 Order name: O2 Sat Monitoring; Complete Time: 18:05 [facility] 04/01 17:33 Order name: Suicide Screening ([place]); Complete Time: 18:41 [facility] EC:54 Rate is 66 beats/min. Rhythm is regular. QRS [place] is Normal. NC interval is normal. QRS shelley interval is normal. QT interval is prolonged at 448 msec. No Q waves. T waves are Normal. No ST changes noted. Clinical impression: NSR w/ Non-specific ST/T Changes and No evidence of ischemia. Interpreted by me. Reviewed by me. Administered Medications: 18:59 Drug: NS 0.9% 1000 ml Route: IV; Rate: 1 bolus; Site: left antecubital; vg1 20:39 Follow up: IV Status: Completed infusion; IV Intake: 1000ml vg1 20:43 Drug: Aspirin 81 mg Route: PO; vg1 21:17 Follow up: Response: No adverse reaction vg1 Disposition: 04/01/21 20:49 Discharged to Home. Impression: Weakness, Epileptic seizures related to external causes, Presence of cardiac pacemaker. - Condition is Stable. - Discharge Instructions: Nonepileptic Seizures, Weakness, Seizure, Adult, [id number], Weakness, [id number], Aspirin and Your Heart. - Medication Reconciliation Form, Thank You Letter, Antibiotic Education, Prescription Opioid Use form. - Follow up: Private Physician; When: 2 - 3 days; Reason: Recheck today's complaints, Continuance of care, Re-evaluation by your physician. Follow up: Cornelius Womack MD; When: 2 - 3 days; Reason: Recheck today's complaints, Continuance of care, Re-evaluation by your physician. Follow up: Shekhar Colon MD; When: 2 - 3 days; Reason: Recheck today's complaints, Re-evaluation by your physician. - Problem is new. - Symptoms have improved. Signatures: Dispatcher [employer] EDJavad Ruelas MD MD cha Garcia, Victoria, RN RN vg1 Corrections: (The following items were deleted from the chart) 20:51 20:49 04/01/2021 20:49 Discharged to Home. Impression: Weakness; Epileptic seizures shelley related to external causes. Condition is Stable. Forms are Medication Reconciliation Form, Thank You Letter, Antibiotic Education, Prescription Opioid Use. Follow up: Private Physician; When: 2 - 3 days; Reason: Recheck today's complaints, Continuance of care, Re-evaluation by your physician. Follow up: Cornelius Womack; When: 2 - 3 days; Reason: Recheck today's complaints, Continuance of care, Re-evaluation by your physician. Follow up: Shekhar Colon; When: 2 - 3 days; Reason: Recheck today's complaints, Re-evaluation by your physician. Problem is new. Symptoms have improved. shelley 21:18 20:51 04/01/2021 20:49 Discharged to Home. Impression: Weakness; Epileptic seizures vg1 related to external causes; Presence of cardiac pacemaker. Condition is Stable. Discharge Instructions: Nonepileptic Seizures, Weakness, Seizure, Adult, [id number], Weakness, [id number], Aspirin and Your Heart. Forms are Medication Reconciliation Form, Thank You Letter, Antibiotic Education, Prescription Opioid Use. Follow up: Private Physician; When: 2 - 3 days; Reason: Recheck today's complaints, Continuance of care, Re-evaluation by your physician. Follow up: Cornelius Womack; When: 2 - 3 days; Reason: Recheck today's complaints, Continuance of care, Re-evaluation by your physician. Follow up: Shekhar Colon; When: 2 - 3 days; Reason: Recheck today's complaints, Re-evaluation by your physician. Problem is new. Symptoms have improved. shelley
[2021-04-01] MEDS ORDERED: ASPIRIN 81 MG CHEWABLE TABLET ONE (21:00)
[2021-04-01 21:40] VITALS: TEMP 98.1
[2021-04-01 21:41] VITALS: BP 118/66; O2SAT 96
== END 2021-04-01 21:18 | disposition home or self-care (01) ==
LOC: ER 17:07
DX: G40.509 Epileptic seizures related to external causes, not intractable, without status epilepticus (principal); Z95.0 Presence of cardiac pacemaker; I10 Essential (primary) hypertension; Z79.82 Long term (current) use of aspirin; Z88.6 Allergy status to analgesic agent
CPT/HCPCS: 96361; 85025; 80048; 36415; 80320; 83735; 80329 ×2; 85610; 80076; 85730; 84484; 83880; 70450; 71045; 96360; 99284; J7030

== ENCOUNTER 2025-01-08 09:01 | Emergency (ER) | payer OTHER ==
[2025-01-08 09:46] LABS: Absolute Eosinophils 0.2 K/uL (0-0.5); Absolute Lymphocytes (CBC) 1.3 K/uL (0.7-4.9); Absolute Monocytes 0.5 K/uL (0.1-1.3); Absolute Neutrophil 6.9 K/uL (1.8-8.0); Basophils % 0.4 % (0-1.3); Eosinophils % 1.7 % (0-4.4); Hematocrit 51.9 % (39.6-49.0); Hemoglobin 17.1 g/dL (13.6-17.9); Lymphocytes % 14.8 % (15.3-44.8); MCH 31.8 pg (27.0-35.0); MCV 96.4 fL (80-100); Monocytes % 5.8 % (3.3-12.3); Neutrophils % 77.3 % (41.7-73.7); Platelets 159 thou/uL (152-406); RBC Red Blood Cell Count 5.39 M/uL (4.33-5.43); Red Cell Distribution Width 13.9 % (12.1-15.2)
[2025-01-08 10:06] LABS: Albumin 4.3 g/dL (3.4-5.0); Albumin/Globulin Ratio 1.3 (1.1-1.8); Anion Gap 7.8 mEq/L (5.0-15.0); Bilirubin Direct 0.2 mg/dL (0-0.2); Bilirubin Indirect, Calculated 0.5 mg/dL (0.2-0.8); Bilirubin Total 0.7 mg/dL (0.2-1.0); Globulin 3.2 g/dL (2.3-3.5); Magnesium 2.2 mg/dL (1.6-2.4); Potassium 3.8 mEq/L (3.5-5.1); Protein, Total 7.5 g/dL (6.4-8.2); Troponin High Sensitivity 3.7 pg/mL (<58.9)
[2025-01-08] MEDS ORDERED: ONDANSETRON 4 MG/2 ML VIAL ONE (10:13)
[2025-01-08] MEDS ORDERED: NA CHLORIDE 0.9% 1,000 ML ONE (10:13)
[2025-01-08 10:28] LABS: Blood Morphology Comment NOT SEEN (NOT SEEN); Platelet Estimate ADEQ; White Blood Cell Scan OK (OK)
[2025-01-08 10:43] LABS: SARS-CoV-2 Antigen CONTROL BLUE LINE VIS/BG OK; SARS-CoV-2 Antigen Rapid Res Negative (Negative)
--- NOTE | 2025-01-08 10:52 | EDPHYS ---
Physician Documentation [facility] Name: Chace Silva Age: 29 yrs Sex: Male : 1995 Arrival Date: 01/08/2025 Time: 09:01 Bed 2 Private MD: ED Physician Lion Schroeder HPI: 01/08 09:41 This 29 yrs old Male presents to ER via Ambulatory with complaints of Chest Pain, sp3 Headache, Abdominal Pain. 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 Patient states he has had problems with his pacemaker in the past with last visit here 3 years ago after which she was discharged home. He denies any syncope, headache, neck pain, back pain, shortness of breath, URI symptoms, rash, known sick contacts, travel history, prolonged immobilization, or any other signs or symptoms on ROS at this time.. Historical: - Allergies: 09:10 Ibuprofen; iw - PMHx: 09:10 congenital heart diseas; Hypertension; non epileptic seizures; Pacemaker; iw - Immunization history:: Adult Immunizations not up to date. - Infectious Disease History:: Denies. - Social history:: Smoking status: Reported history of juuling and/or vaping. ROS: 09:43 Eyes: Negative for injury, pain, redness, and discharge, ENT: Negative for injury, sp3 pain, and discharge, Neck: Negative for injury, pain, and swelling, Respiratory: Negative for shortness of breath, cough, wheezing, and pleuritic chest pain, Back: Negative for injury and pain, MS/Extremity: Negative for injury and deformity, Skin: Negative for injury, rash, and discoloration, Neuro: Negative for headache, weakness, numbness, tingling, and seizure, Psych: Negative for depression, anxiety, suicide ideation, homicidal ideation, and hallucinations, Allergy/Immunology: Negative for hives, rash, and allergies, Endocrine: Negative for neck swelling, polydipsia, polyuria, polyphagia, and marked weight changes, Hematologic/Lymphatic: Negative for swollen nodes, abnormal bleeding, and unusual bruising, 09:43 All other systems are negative, Exam: 09:43 Constitutional: This is a well developed, well nourished patient who is awake, alert, sp3 and in no acute distress. Head/Face: Normocephalic, atraumatic. Eyes: Pupils equal round and reactive to light, extra-ocular motions intact. Lids and lashes normal. Conjunctiva and sclera are non-icteric and not injected. Cornea within normal limits. Periorbital areas with no swelling, redness, or edema. ENT: Nares patent. No nasal discharge, no septal abnormalities noted. External auditory canals are clear. Oropharynx with no redness, swelling, or masses, exudates, or evidence of obstruction, uvula midline. Mucous membranes moist. Neck: Trachea midline, no thyromegaly or masses palpated, and no cervical lymphadenopathy. Supple, full range of motion without nuchal rigidity, or vertebral point tenderness. No Meningismus. Chest/axilla: Normal chest wall appearance and motion. Nontender with no deformity. No lesions are appreciated. Cardiovascular: Regular rate and rhythm with a normal S1 and S2. No gallops, murmurs, or rubs. Normal PMI, no JVD. No pulse deficits. Respiratory: Lungs have equal breath sounds bilaterally, clear to auscultation and percussion. No rales, rhonchi or wheezes noted. No increased work of breathing, no retractions or nasal flaring. Abdomen/GI: Soft, non-tender, with normal bowel sounds. No distension or tympany. No guarding or rebound. No evidence of tenderness throughout. Back: No spinal tenderness. No costovertebral tenderness. Full range of motion. Skin: Warm, dry with normal turgor. Normal color with no rashes, no lesions, and no evidence of cellulitis. MS/ Extremity: Pulses equal, no cyanosis. Neurovascular intact. Full, normal range of motion. Neuro: Awake and alert, GCS 15, oriented to person, place, time, and situation. Cranial nerves II-XII grossly intact. Motor strength 5/5 in all extremities. Sensory grossly intact. Cerebellar exam normal. Normal gait. Psych: Awake, alert, with orientation to person, place and time. Behavior, mood, and affect are within normal limits. 09:43 ECG was reviewed by the Attending Physician. EKG demonstrates atrial paced rhythm at 68 bpm with adequate ventricular capture and nonspecific diffuse ST/T changes without evidence of acute ischemia. Vital Signs: 09:10 BP 119 / 79; Pulse 66; Resp 19; Temp 97.6; Pulse Ox 95% on R/A; Weight 64.86 kg; Height iw 5 ft. 10 in. ; Pain 5/10; 10:25 BP 114 / 74; Pulse 61; Resp 18 S; Pulse Ox 95% ; kc6 09:10 Body Mass Index 20.52 (64.86 kg, 177.8 cm) iw 09:10 Pain Scale: Adult iw MDM: 09:06 Medical Screening Exam initiated sp3 09:44 Data reviewed: vital signs, nurses notes, old medical records, lab test result(s), EKG, sp3 radiologic studies. ED course: 9-year-old male with generalized symptoms as noted in HPI. Differential diagnosis includes viral illness, electrolyte abnormality, bronchitis, pneumonia, dehydration, among others. I am not highly suspicious of acute OK, PE, aortic pathology, sepsis, shock, or any other critical process. Patient's pacemaker appears to be functioning appropriately. Vital signs are normal. Patient is in no acute distress and has a normal physical exam. Workup will include x-ray chest x-ray, EKG which is already being performed, general labs, nasal swabs for COVID and influenza and treatment with normal saline and ondansetron IV for symptomatic control of his symptoms. If workup negative we will safely discharge him home.. 10:50 ED course: Labs normal and swabs normal. Hazy opacity noted on the left lung. Will go sp3 ahead and treat with Zithromax and have patient follow-up with PCP.. 01/08 09:13 Order name: Basic Metabolic Panel; Complete Time: 10:28 sp3 01/08 09:13 Order name: CBC with Diff; Complete Time: 10:46 sp3 01/08 09:13 Order name: LFT's; Complete Time: 10:28 sp3 01/08 09:13 Order name: Magnesium; Complete Time: 10:28 sp3 01/08 09:13 Order name: NT PRO-BNP; Complete Time: 10:28 sp3 01/08 09:13 Order name: Troponin HS; Complete Time: 10:28 sp3 01/08 09:42 Order name: Flu; Complete Time: 10:46 sp3 01/08 09:42 Order name: SARS RAPID; Complete Time: 10:46 sp3 01/08 10:28 Order name: CBC Smear Scan; Complete Time: 10:46 EDMS 01/08 09:13 Order name: XRAY Chest (1 view) sp3 01/08 09:13 Order name: EKG; Complete Time: 09:14 sp3 01/08 09:13 Order name: Cardiac monitoring; Complete Time: 09:40 sp3 01/08 09:13 Order name: EKG - Nurse/Tech; Complete Time: 09:40 sp3 01/08 09:13 Order name: IV Saline Lock; Complete Time: 09:40 sp3 01/08 09:13 Order name: Labs collected and sent; Complete Time: 09:40 sp3 Administered Medications: 10:17 Drug: Ondansetron IVP 4 mg IVP once; over 2 minutes Route: IVP; Site: left antecubital; kc6 11:03 Follow up: Response: No adverse reaction; Nausea is decreased kc6 10:17 Drug: NS 0.9% IV 500 ml 500 ml IV at 1 bolus once; to be given as a bolus over 30 kc6 minutes Volume: 500 ml; Route: IV; Rate: 1 bolus; Site: left antecubital; 11:03 Follow up: Response: No adverse reaction; IV Status: Completed infusion; IV Intake: kc6 500ml Disposition Summary: 01/08/25 10:51 Discharge Ordered Notes: Location: Home sp3 Condition: Stable sp3 Diagnosis - Bronchitis, pneumonia sp3 Followup: sp3 - With: Private Physician - When: Upon discharge from the Emergency Department - Reason: Continuance of care Discharge Instructions: - Discharge Summary Sheet sp3 - Upper Respiratory Infection, Adult sp3 - Aspiration Pneumonia, Adult sp3 Forms: - Medication Reconciliation Form sp3 - Antibiotic Education sp3 - Prescription Opioid Use sp3 - Patient Portal Instructions sp3 - Leadership Thank You Letter sp3 Prescriptions: - Zithromax Z-Stanton 250 mg Oral Tablet - take 1 tablet ORAL route as directed for 5 days Day 1 - take two (2) tablets sp3 one time. Day 2, 3, 4 , 5 take one (1) tablet once daily.; 6 tablet; Refills: 0, Product Selection Permitted - ondansetron 8 mg Oral Tablet,disintegrating - take 1 tablet ORAL route every 12 hours; 15 tablet; Refills: 0, Product sp3 Selection Permitted Signatures: Dispatcher [employer] EDMS Debora De Jesus, RN RN iw Lion Schroeder MD MD sp3 Violetta Carnes RN RN kc6 Corrections: (The following items were deleted from the chart) 09: 09:14 BASIC METABOLIC PANEL+C.LAB.BRZ ordered. EDMS EDMS 09:14 09:14 CBC+H.LAB.BRZ ordered. EDMS EDMS : 09:14 HEPATIC FUNCTION+C.LAB.BRZ ordered. EDMS EDMS : 09:14 MAGNESIUM+C.LAB.BRZ ordered. EDMS EDMS :14 09:14 PROBNP+C.LAB.BRZ ordered. EDMS EDMS :14 09:14 Troponin High Sensitivity+C.LAB.BRZ ordered. EDMS EDMS
--- NOTE | 2025-01-08 10:52 | ER ---
Nurse's Notes [facility] Name: Chace Silva Age: 29 yrs Sex: Male : 1995 Arrival Date: 01/08/2025 Time: 09:01 Bed 2 Private MD: Diagnosis: Bronchitis, pneumonia Presentation: 01/08 09:09 Chief complaint: Patient states: head hurts, stomach hurts, pacemaker feels like it's iw shocking me, I woke up feeling like I needed to throw up. 09:09 Method Of Arrival: Ambulatory iw 09:09 Acuity: NIKOLE 3 iw 09:10 Coronavirus screen: At this time, the client does not indicate any symptoms associated iw with coronavirus-19. Ebola Screen: No symptoms or risks identified at this time. Initial Sepsis Screen: Does the patient meet any 2 criteria? No. Patient's initial sepsis screen is negative. Does the patient have a suspected source of infection? No. Patient's initial sepsis screen is negative. Risk Assessment: Do you want to hurt yourself or someone else? Patient reports no desire to harm self or others. Onset of symptoms was January 08, 2025. Triage Assessment: 09:10 General: Appears in no apparent distress. Behavior is calm, cooperative. Pain: iw Complains of pain in abdomen. Historical: - Allergies: 09:10 Ibuprofen; iw - PMHx: 09:10 congenital heart diseas; Hypertension; non epileptic seizures; Pacemaker; iw - Immunization history:: Adult Immunizations not up to date. - Infectious Disease History:: Denies. - Social history:: Smoking status: Reported history of juuling and/or vaping. Screenin:40 [facility] ED Fall Risk Assessment (Adult) History of falling in the last 3 months, kc6 including since admission No falls in past 3 months (0 pts) Confusion or Disorientation No (0 pts) Intoxicated or Sedated No (0 pts) Impaired Gait No (0 pts) Mobility Assist Device Used No (0 pt) Altered Elimination No (0 pt) Score/Fall Risk Level 0 - 2 = Low Risk Oriented to surroundings, Maintained a safe environment, Educated pt \T\ family on fall prevention, incl call for assistance when getting out of bed. Abuse screen: Denies threats or abuse. Denies injuries from another. Nutritional screening: No deficits noted. Tuberculosis screening: No symptoms or risk factors identified. Assessment: 10:23 General: Appears in no apparent distress. comfortable, well groomed, well developed, kc6 Behavior is calm, cooperative, appropriate for age, Smells of marijuana. Pain: Complains of pain in chest and abdomen Pain does not radiate. Pain began suddenly. Neuro: Level of Consciousness is awake, alert, obeys commands, Oriented to person, place, time, situation, Appropriate for age Reports headache. Cardiovascular: Reports chest pain, Heart tones S1 S2 present Capillary refill < 3 seconds Rhythm is atrial pacer. Respiratory: Airway is patent Trachea midline Respiratory effort is even, unlabored, Respiratory pattern is regular, symmetrical. GI: Reports upper abdominal pain, nausea, Patient currently denies diarrhea, vomiting. : No signs and/or symptoms were reported regarding the genitourinary system. EENT: No signs and/or symptoms were reported regarding the EENT system. Derm: No signs and/or symptoms reported regarding the dermatologic system. Skin is intact, is healthy with good turgor, Skin is pink, warm \T\ dry. Musculoskeletal: No signs and/or symptoms reported regarding the musculoskeletal system. Circulation, motion, and sensation intact. Range of motion: intact in all extremities. 11:03 Reassessment: Patient appears in no apparent distress at this time. No changes from kc6 previously documented assessment. Patient and/or family updated on plan of care and expected duration. Pain level reassessed. Patient is alert, oriented x 3, equal unlabored respirations, skin warm/dry/pink. Vital Signs: 09:10 BP 119 / 79; Pulse 66; Resp 19; Temp 97.6; Pulse Ox 95% on R/A; Weight 64.86 kg; Height iw 5 ft. 10 in. ; Pain 5/10; 10:25 BP 114 / 74; Pulse 61; Resp 18 S; Pulse Ox 95% ; kc6 09:10 Body Mass Index 20.52 (64.86 kg, 177.8 cm) iw 09:10 Pain Scale: Adult iw ED Course: 09:05 Patient arrived in ED. al6 09:06 Lion Schroeder MD is Attending Physician. sp3 09:10 Triage completed. iw 09:11 Arm band placed on. iw 09:39 Violetta Carnes, DEEPIKA is Primary Nurse. kc6 09:40 Patient has correct armband on for positive identification. Placed in gown. Bed in low kc6 position. Call light in reach. Side rails up X 1. Adult w/ patient. engine monitor on. Pulse ox on. NIBP on. Door closed. Noise minimized. Lights dimmed. Pillow given. Verbal reassurance given. 09:40 Inserted saline lock: 20 gauge in left antecubital area, using aseptic technique. Blood kc6 collected. Flushed with 10 mL NS. Patient maintains SpO2 saturation greater than 95% on room air. 10:53 XRAY Chest (1 view) In Process Unspecified. EDMS 11:04 No provider procedures requiring assistance completed. IV discontinued, intact, kc6 bleeding controlled, No redness/swelling at site. Pressure dressing applied. Administered Medications: 10:17 Drug: Ondansetron IVP 4 mg IVP once; over 2 minutes Route: IVP; Site: left antecubital; kc6 11:03 Follow up: Response: No adverse reaction; Nausea is decreased kc6 10:17 Drug: NS 0.9% IV 500 ml 500 ml IV at 1 bolus once; to be given as a bolus over 30 kc6 minutes Volume: 500 ml; Route: IV; Rate: 1 bolus; Site: left antecubital; 11:03 Follow up: Response: No adverse reaction; IV Status: Completed infusion; IV Intake: kc6 500ml Medication: 11:04 VIS not applicable for this client. kc6 Intake: 11:03 IV: 500ml; Total: 500ml. kc6 Outcome: 10:51 Discharge ordered by . [email or web address] 11:04 Discharged to home ambulatory, with significant other, kc6 11:04 Condition: improved 11:04 Discharge instructions given to patient, significant other, Instructed on discharge instructions, follow up and referral plans. medication usage, Demonstrated understanding of instructions, follow-up care, medications, Prescriptions given X 2, 11:04 Patient left the ED. kc6 Signatures: Dispatcher [employer] EDNC Debora De Jesus RN RN iw Patel, Setul, MD MD sp3 Campbell, Kaitlyn, RN RN kc6 Sury [email or web address] Corrections: (The following items were deleted from the chart) 09:12 09:10 BP 119 / 79; Pulse 66bpm; Resp 19bpm; Temp 97.6F; 64.86 kg; Height 5 ft. 10 in.; iw BMI: 20.5; Pain 5/10, Adult; iw
--- NOTE | 2025-01-08 11:03 | RAD REPORT ---
Procedure: Chest Single View HISTORY: Chest pain COMPARISON: 2022 FINDINGS: The lungs appear clear of acute infiltrate. No significant pleural effusion noted. The heart is normal size. IMPRESSION: No acute abnormality is displayed.
[2025-01-08 11:24] VITALS: TEMP 97.6; O2SAT 95
[2025-01-08 11:25] VITALS: BP 114/74
== END 2025-01-08 11:04 | disposition home or self-care (01) ==
LOC: ER 09:01
DX: J18.9 Pneumonia, unspecified organism (principal); J40 Bronchitis, not specified as acute or chronic; Z11.52 Encounter for screening for COVID-19; Z95.0 Presence of cardiac pacemaker
CPT/HCPCS: 85025; 80048; 36415; 83735; 80076; 84484; 83880; 87804 ×2; 71045; 87811; J2405; J7030; 93005